=== PATIENT | female | born 1955 | race American Indian/Alaskan Native ===

== ENCOUNTER → 2018-02-15 | Outpatient (CLI) | payer BC ==
[~2018-02-15] MED LIST: ACET500 PO; ASCO500; ASPI325; ASPI325EC PO; ATOR20 PO; BACL10 PO; BISA10S PR; BUPR150ER; BUTASPCAFT; BUTASPCAFT PO; CAL MAG; CALMAGZIN PO; CARV25; CARV25 PO; CHOL10002 PO; CINNAMON PLUS1 EACH PO; CLOP75 PO; CODBUTACEC PO; CYCL10 PO; DIGO.125 PO; DIGO.25 PO; DOCU100 PO; DOXY100 PO; FLEET ENEMA EX230 ML PR; GABA100 PO; GABA300 PO; GLIM4; HYDACE5325 PO; HYDR1TAB94 PO; Hydrochlorothia25 MG PO; IBUP800; INSLI100I; INSUASPI; INSULANI; INSULANPEN; INSULANPEN SC; Janumet 50-1,01 EACH PO; LISI20 PO; LORA.5 PO; LOSA50 PO; METF500 PO; METF500C; METHYLFOLATE PO; MULTI VIT QD; Milk Of Ma400 MG/5 M PO; NAPR550 PO; NITR.4SL; PENT400ER; PIOG15; POLY500 PO; POTCHL20ER PO; Pentoxifylline400 MG PO; SERT100 PO; SERT50 PO; SITA50T2 PO; TEMA30; TIAZAC; TOCO1000; VERA240ER PO; VYTORIN; WOMEN'S 50+ DA1 EACH PO; Zofran8 MG PO; [UNRECOGNIZED DRUG - OTHER]
[2018-02-15 13:34] LABS: BASOPHILS ABSOLUTE AUTO 0.05 K/mm3 (0.00-0.23); BASOPHILS PERCENT AUTO 1 % (0-2); EOSINOPHILS ABSOLUTE AUTO 0.15 K/mm3 (0.00-0.68); EOSINOPHILS PERCENT AUTO 2 % (0-6); Hematocrit 38.5 % (33.0-51.0); Hemoglobin 13.2 g/dL (11.5-16.0); IMMATURE GRAN ABSOLUTE AUTO 0.04 K/mm3 (0.00-0.10); IMMATURE GRAN PERCENT AUTO 0 % (0-1); LYMPHOCYTES ABSOLUTE AUTO 1.81 K/mm3 (0.84-5.20); LYMPHOCYTES PERCENT AUTO 18 % (21-46); MONOCYTES ABSOLUTE AUTO 0.89 K/mm3 (0.16-1.47); MONOCYTES PERCENT AUTO 9 % (4-13); Mean Corpuscular HGB 29.3 pg (26.0-34.0); Mean Corpuscular HGB Conc 34.3 g/dL (31.5-36.5); Mean Corpuscular Volume 85 fL (80-100); Mean Platelet Volume 9.9 fL (9.1-12.4); NEUTROPHILS ABSOLUTE AUTO 6.92 K/mm3 (1.96-9.15); NEUTROPHILS PERCENT AUTO 70 % (41-73); Platelet Count 203 K/mm3 (150-400); RDW Coefficient Variation 12.5 % (11.7-14.2); RDW Standard Deviation 38.2 fL (35.1-46.3); Red Blood Cell Count 4.51 M/mm3 (3.80-5.20); White Blood Cell Count 9.86 K/mm3 (4.00-11.30)
[2018-02-15 13:56] LABS: Alanine Aminotransfer (ALT/SGP 22 U/L (12-78); Albumin, Blood 3.7 g/dL (3.4-5.0); Albumin/Globulin Ratio 0.9 (0.8-1.8); Alk Phos 60 U/L (40-126); Anion Gap 10 mmol/L (6-16); Aspartate Aminotrans (AST/SGOT 17 U/L (12-37); Bilirubin, Total 0.4 mg/dL (0.1-1.0); Blood Urea Nitrogen 17 mg/dL (8-24); Bun/Creatinine Ratio 20.7 (12.0-20.0); CO2, Blood 27 mmol/L (21-32); Calcium, Blood 9.7 mg/dL (8.5-10.1); Chloride, Blood 97 mmol/L (98-108); Creatinine, Blood 0.82 mg/dL (0.40-1.00); Globulin, Blood 3.9 g/dL (2.2-4.0); Glomerular Filtration Rate >60 (60-); Glucose, Blood 85 mg/dL (70-99); Potassium, Blood 4.4 mmol/L (3.5-5.5); Sodium, Blood 134 mmol/L (136-145); Thyroid Stimulating Hormone 0.463 uIU/mL (0.360-4.800); Total Protein, Blood 7.6 g/dL (6.4-8.2)
[2018-02-15 14:19] LABS: Digoxin (Lanoxin) 1.07 ug/mL (0.80-2.00)
== END ==
LOC: LAB SHORT 13:30
PROVIDERS: Physician Assistant Medical
DX: R47.02 Dysphasia (principal)
CPT/HCPCS: 80053; 80162; 84443; 85025

== ENCOUNTER 2018-04-05 15:31 | Emergency (ER) | payer BC ==
[~2018-04-05] VITALS: Ht 162.6 cm; Wt 59.0 kg
[2018-04-05 16:24] LABS: BASOPHILS ABSOLUTE AUTO 0.05 K/mm3 (0.00-0.23); BASOPHILS PERCENT AUTO 1 % (0-2); EOSINOPHILS PERCENT AUTO 1 % (0-6); Hematocrit 38.9 % (33.0-51.0); Hemoglobin 13.5 g/dL (11.5-16.0); IMMATURE GRAN ABSOLUTE AUTO 0.01 K/mm3 (0.00-0.10); IMMATURE GRAN PERCENT AUTO 0 % (0-1); LYMPHOCYTES ABSOLUTE AUTO 1.37 K/mm3 (0.84-5.20); LYMPHOCYTES PERCENT AUTO 18 % (21-46); MONOCYTES ABSOLUTE AUTO 0.66 K/mm3 (0.16-1.47); MONOCYTES PERCENT AUTO 9 % (4-13); Mean Corpuscular HGB 29.7 pg (26.0-34.0); Mean Corpuscular HGB Conc 34.7 g/dL (31.5-36.5); Mean Corpuscular Volume 86 fL (80-100); Mean Platelet Volume 9.6 fL (9.1-12.4); NEUTROPHILS ABSOLUTE AUTO 5.44 K/mm3 (1.96-9.15); NEUTROPHILS PERCENT AUTO 71 % (41-73); Platelet Count 214 K/mm3 (150-400); RDW Coefficient Variation 12.3 % (11.7-14.2); RDW Standard Deviation 38.2 fL (35.1-46.3); Red Blood Cell Count 4.55 M/mm3 (3.80-5.20); White Blood Cell Count 7.63 K/mm3 (4.00-11.30)
[2018-04-05 16:52] LABS: Alanine Aminotransfer (ALT/SGP 28 U/L (12-78); Albumin, Blood 3.6 g/dL (3.4-5.0); Alk Phos 61 U/L (50-136); Anion Gap 11 mmol/L (6-16); Aspartate Aminotrans (AST/SGOT 24 U/L (12-37); Bilirubin, Total 0.5 mg/dL (0.1-1.0); Blood Urea Nitrogen 17 mg/dL (8-24); Bun/Creatinine Ratio 22.4 (12.0-20.0); CO2, Blood 24 mmol/L (21-32); Calcium, Blood 9.5 mg/dL (8.5-10.1); Chloride, Blood 96 mmol/L (98-108); Creatinine, Blood 0.76 mg/dL (0.40-1.00); Globulin, Blood 3.6 g/dL (2.2-4.0); Glomerular Filtration Rate >60 (60-); Glucose, Blood 185 mg/dL (70-99); Potassium, Blood 4.3 mmol/L (3.5-5.5); Sodium, Blood 131 mmol/L (136-145); Total Protein, Blood 7.2 g/dL (6.4-8.2)
[2018-04-05 17:11] LABS: Source, Urine Clean Catch
[2018-04-05 17:18] LABS: Bilirubin, Urine Neg (Neg); Blood, Urine Neg (Neg); Glucose Qualitative, Urine Neg (Neg); Ketones, Urine Neg (Neg); Leukocyte Esterase, Urine Neg (Neg); Nitrite, Urine Neg (Neg); Protein, Urine Neg (Neg); Urobilinogen, Urine NORM (Normal)
[2018-04-05 17:26] LABS: Appearance, Urine Clear (Clear); Color, Urine Yellow (P-Yellow)
[2018-04-05 17:33] LABS: U Amphetamine Screen Not Detected; U Barbituate Screen Not Detected; U Benzodiazapine Screen Not Detected; U Buprenorphine Screen Not Detected; U Cannabinoids Screen Not Detected; U Cocaine Screen Not Detected; U Methadone Screen Not Detected; U Methamphetamine Screen Not Detected; U Opiates Screen Not Detected; U Oxycodone Screen Not Detected; U Phencyclidine Screen Not Detected; U Propoxyphene Screen Not Detected
== END 2018-04-05 18:25 | disposition home or self-care (01) ==
LOC: ER 15:31
PROVIDERS: Emergency Medicine; Internal Medicine
DX: R41.0 Disorientation, unspecified (principal); R47.9 Unspecified speech disturbances; Z88.0 Allergy status to penicillin; Z88.8 Allergy status to other drugs, medicaments and biological substances; Z79.899 Other long term (current) drug therapy; Z79.82 Long term (current) use of aspirin; Z79.4 Long term (current) use of insulin; E11.9 Type 2 diabetes mellitus without complications; I10 Essential (primary) hypertension; I25.2 Old myocardial infarction
CPT/HCPCS: 36415; 51701; 70450; 80053; 81003; 82947; 85025; 93005; 93010; 96374; 99284-25; J2060

== ENCOUNTER 2018-10-13 12:39 | Emergency (ER) | payer BC ==
[~2018-10-13] VITALS: Ht 172.7 cm; Wt 59.0 kg
[~2018-10-13 12:39] MED LIST changes: +BUPR100 PO; +FLONASE SENSIM5.9 ML; +HYDCHL25 PO; +LANOXIN250 MC1 PO; +Prozac40 MG PO
[2018-10-13 14:14] LABS: BASOPHILS ABSOLUTE AUTO 0.05 K/mm3 (0.00-0.23); BASOPHILS PERCENT AUTO 1 % (0-2); EOSINOPHILS ABSOLUTE AUTO 0.16 K/mm3 (0.00-0.68); EOSINOPHILS PERCENT AUTO 2 % (0-6); Hematocrit 40.3 % (33.0-51.0); IMMATURE GRAN ABSOLUTE AUTO 0.04 K/mm3 (0.00-0.10); IMMATURE GRAN PERCENT AUTO 1 % (0-1); LYMPHOCYTES ABSOLUTE AUTO 1.38 K/mm3 (0.84-5.20); LYMPHOCYTES PERCENT AUTO 16 % (21-46); MONOCYTES ABSOLUTE AUTO 0.72 K/mm3 (0.16-1.47); MONOCYTES PERCENT AUTO 9 % (4-13); Mean Corpuscular HGB 28.6 pg (26.0-34.0); Mean Corpuscular HGB Conc 32.3 g/dL (31.5-36.5); Mean Corpuscular Volume 89 fL (80-100); Mean Platelet Volume 10.4 fL (9.1-12.4); NEUTROPHILS ABSOLUTE AUTO 6.12 K/mm3 (1.96-9.15); NEUTROPHILS PERCENT AUTO 72 % (41-73); Platelet Count 209 K/mm3 (150-400); RDW Coefficient Variation 12.8 % (11.7-14.2); RDW Standard Deviation 41.8 fL (35.1-46.3); Red Blood Cell Count 4.55 M/mm3 (3.80-5.20); White Blood Cell Count 8.47 K/mm3 (4.00-11.30)
[2018-10-13 14:26] LABS: International Normalized Ratio 0.97
[2018-10-13 14:28] LABS: Alanine Aminotransfer (ALT/SGP 23 U/L (12-78); Albumin, Blood 3.6 g/dL (3.4-5.0); Albumin/Globulin Ratio 0.9 (0.8-1.8); Alk Phos 70 U/L (50-136); Anion Gap 7 mmol/L (6-16); Aspartate Aminotrans (AST/SGOT 20 U/L (12-37); Bilirubin, Total 0.5 mg/dL (0.1-1.0); Blood Urea Nitrogen 21 mg/dL (8-24); Bun/Creatinine Ratio 27.7 (12.0-20.0); CO2, Blood 28 mmol/L (21-32); Calcium, Blood 9.5 mg/dL (8.5-10.1); Chloride, Blood 99 mmol/L (98-108); Creatinine, Blood 0.76 mg/dL (0.40-1.00); Ethanol (Alcohol), Blood, Med <3 mg/dL; Globulin, Blood 3.9 g/dL (2.2-4.0); Glomerular Filtration Rate >60 (60-); Glucose, Blood 97 mg/dL (70-99); Potassium, Blood 4.8 mmol/L (3.5-5.5); Sodium, Blood 134 mmol/L (136-145); Total Protein, Blood 7.5 g/dL (6.4-8.2)
[2018-10-13 14:54] LABS: U Amphetamine Screen Not Detected; U Barbituate Screen Not Detected; U Benzodiazapine Screen Not Detected; U Buprenorphine Screen Not Detected; U Cannabinoids Screen Not Detected; U Cocaine Screen Not Detected; U Methadone Screen Not Detected; U Methamphetamine Screen Not Detected; U Opiates Screen Not Detected; U Oxycodone Screen Not Detected; U Phencyclidine Screen Not Detected; U Propoxyphene Screen Not Detected
[2018-10-13] MEDS ORDERED: Norco 5-325 Ta1 EACH PO (16:37)
[2018-10-28] MEDS ORDERED: NAC500 MG PO (14:23)
[2018-10-28] MEDS ORDERED: [UNRECOGNIZED DRUG - OTHER] PO (14:24)
[2018-10-28] MEDS ORDERED: Fiber Tabs625 MG PO (14:24)
[2018-10-28] MEDS ORDERED: FOLI1 PO (14:25)
[2018-10-28] MEDS ORDERED: FIBRIK CAPSULE1 EACH PO (14:26)
[2018-10-28] MEDS ORDERED: VIT1CAPS12 PO (14:26)
[2018-10-28] MEDS ORDERED: MELA3 PO (14:27)
[2018-10-28] MEDS ORDERED: [UNRECOGNIZED DRUG - REMARK] PO (14:28)
== END 2018-10-13 16:50 | disposition home or self-care (01) ==
LOC: ER 12:39
PROVIDERS: Physician Assistant
DX: S06.9X9A Unspecified intracranial injury with loss of consciousness of unspecified duration, initial encounter (principal); S01.81XA Laceration without foreign body of other part of head, initial encounter; Z88.0 Allergy status to penicillin; Z79.4 Long term (current) use of insulin; E11.9 Type 2 diabetes mellitus without complications; I10 Essential (primary) hypertension; I25.2 Old myocardial infarction; Z87.891 Personal history of nicotine dependence; X58.XXXA Exposure to other specified factors, initial encounter
CPT/HCPCS: 12011; 70450; 72125; 73564; 80053; 82947; 84484; 85025; 85610; 90714; 93005; 93010; 96374; 99285-25; G0480; J3010

== ENCOUNTER 2018-10-31 11:12 | Day surgery (SDC) | payer BC ==
[~2018-10-31] VITALS: Ht 162.6 cm; Wt 55.5 kg
[~2018-10-31 11:12] MED LIST changes: +FIBRIK CAPSULE1 EACH PO; +FOLI1 PO; +Fiber Tabs625 MG PO; +MELA3 PO; +NAC500 MG PO; +Norco 5-325 Ta1 EACH PO; +VIT1CAPS12 PO; +[UNRECOGNIZED DRUG - OTHER] PO; +[UNRECOGNIZED DRUG - REMARK] PO
--- NOTE | 2018-10-31 13:29 | NUR ---
DISCHARGE INSTRUCTIONS GIVEN BY DR MONTENEGRO, RN, AND RICHARD, PLASTIC STRAIGHTENING ROLL OPERATOR FOR [employer]. PATIENT AND FAMILY VERBALIZED UNDERSTANDING.
== END 2018-10-31 23:00 | disposition home or self-care (01) ==
LOC: MHTC 11:12
DX: I63.9 Cerebral infarction, unspecified (principal); G45.9 Transient cerebral ischemic attack, unspecified; R55 Syncope and collapse; I10 Essential (primary) hypertension; I25.2 Old myocardial infarction; E11.9 Type 2 diabetes mellitus without complications; Z79.4 Long term (current) use of insulin; Z79.82 Long term (current) use of aspirin
CPT/HCPCS: 82947; 93312; 93325; J2250; J7120

== ENCOUNTER 2019-03-16 12:34 | Observation (INO) | payer MEDICARE ==
[~2019-03-16] VITALS: Ht 162.6 cm; Wt 58.1 kg
[~2019-03-16 12:34] MED LIST changes: -ASPI325EC PO; -ATOR20 PO; -BUPR100 PO; -FLONASE SENSIM5.9 ML; -HYDCHL25 PO; -INSULANPEN SC; -LOSA50 PO; -NAC500 MG PO; -POTCHL20ER PO; -Prozac40 MG PO
[2019-03-16 13:07] LABS: BASOPHILS ABSOLUTE AUTO 0.06 K/mm3 (0.00-0.23); BASOPHILS PERCENT AUTO 1 % (0-2); EOSINOPHILS ABSOLUTE AUTO 0.16 K/mm3 (0.00-0.68); EOSINOPHILS PERCENT AUTO 2 % (0-6); Hematocrit 38.6 % (33.0-51.0); Hemoglobin 12.8 g/dL (11.5-16.0); IMMATURE GRAN ABSOLUTE AUTO 0.05 K/mm3 (0.00-0.10); IMMATURE GRAN PERCENT AUTO 1 % (0-1); LYMPHOCYTES ABSOLUTE AUTO 1.89 K/mm3 (0.84-5.20); LYMPHOCYTES PERCENT AUTO 21 % (21-46); MONOCYTES ABSOLUTE AUTO 0.87 K/mm3 (0.16-1.47); MONOCYTES PERCENT AUTO 10 % (4-13); Mean Corpuscular HGB 28.6 pg (26.0-34.0); Mean Corpuscular HGB Conc 33.2 g/dL (31.5-36.5); Mean Corpuscular Volume 86 fL (80-100); Mean Platelet Volume 10.2 fL (9.1-12.4); NEUTROPHILS ABSOLUTE AUTO 6.07 K/mm3 (1.96-9.15); NEUTROPHILS PERCENT AUTO 67 % (41-73); Platelet Count 262 K/mm3 (150-400); RDW Coefficient Variation 13.2 % (11.7-14.2); RDW Standard Deviation 41.2 fL (35.1-46.3); Red Blood Cell Count 4.47 M/mm3 (3.80-5.20)
[2019-03-16 13:17] LABS: International Normalized Ratio 0.96; Prothrombin Time Results 10.2 Sec (9.7-11.5)
[2019-03-16 13:29] LABS: Troponin I <0.015 ng/mL (0.000-0.040)
[2019-03-16 13:36] LABS: Alanine Aminotransfer (ALT/SGP 23 U/L (12-78); Albumin, Blood 3.6 g/dL (3.4-5.0); Albumin/Globulin Ratio 0.9 (0.8-1.8); Alk Phos 74 U/L (50-136); Anion Gap 10 mmol/L (6-16); Aspartate Aminotrans (AST/SGOT 34 U/L (12-37); Bilirubin, Total 0.6 mg/dL (0.1-1.0); Blood Urea Nitrogen 24 mg/dL (8-24); Bun/Creatinine Ratio 32.3 (12.0-20.0); CO2, Blood 22 mmol/L (21-32); Calcium, Blood 9.2 mg/dL (8.5-10.1); Chloride, Blood 93 mmol/L (98-108); Creatinine, Blood 0.74 mg/dL (0.40-1.00); Globulin, Blood 3.8 g/dL (2.2-4.0); Glomerular Filtration Rate >60 (60-); Glucose, Blood 182 mg/dL (70-99); Potassium, Blood 5.4 mmol/L (3.5-5.5); Sodium, Blood 125 mmol/L (136-145); Total Protein, Blood 7.4 g/dL (6.4-8.2)
[2019-03-16] MEDS ORDERED: METO25ER PO (15:04)
[2019-03-16] MEDS ORDERED: LOSARTAN POTAS100 MG PO (15:04)
[2019-03-16] MEDS ORDERED: ATOR10 PO (16:37)
[2019-03-16] MEDS ORDERED: LO-DOSE ASPIRIN81 MG PO (16:49)
[2019-03-16] MEDS ORDERED: Prozac40 MG PO (16:49)
[2019-03-16] MEDS ORDERED: CLOP75 PO (16:49)
[2019-03-16] MEDS ORDERED: POTCHL20ER PO (16:50)
[2019-03-16] MEDS ORDERED: HYDCHL25 PO (16:50)
[2019-03-16] MEDS ORDERED: BUPR100ER PO (16:51)
[2019-03-16] MEDS ORDERED: INSULANPEN SC (17:06)
[2019-03-16] MEDS ORDERED: FLONASE SENSIM5.9 ML (17:08)
[2019-03-16] MEDS ORDERED: Janumet 50-1,01 EACH PO (17:08)
[2019-03-16] MEDS ORDERED: NAC500 MG PO (17:10)
--- NOTE | 2019-03-16 18:13 | NUR ---
ALERT, CONFUSED, SLOW VERBAL RESPONSE. WHEN ANSWERING QUESTIONS, PT STARTS TO ANSWER APPROPRIATELY AND THEN LOSES TRACK OF WHAT SHE WAS SAYING AND RESPONDS INAPPROPRIATELY, RESPONSES DO NOT ALWAYS FIT THE QUESTION ASKED. PT STATES HER RIGHT HAND DOES NOT HAVE FINE MOTOR MOVEMENTS AND HAS HAD THIS FOR SEVERAL YEARS. C/O WEAKNESS AND THAT HER BRAIN JUST ISN'T WORKING RIGHT. VSS. LUNGS CLEAR, ROOM AIR, SATS 99%. INSTRUCTED TO CALL FOR ASSISTANCE OUT OF BED AND TO THE BATHROOM AT ALL TIMES. PT STATES HER PLANS TO COME BACK TO THE HOSPITAL THIS EVENING WITH HER MEDICATION LIST. PT UNABLE TO REMEMBER THE MEDICATIONS AND DOSES SHE IS TAKING. INSTRUCTED RE: NPO STATUS UNTIL [facility] PROVIDES ADMISSION ORDERS. BOWEL SOUNDS NORMOACTIVE IN ALL FOUR QUADRANTS. HAD A BM TODAY. LEFT WRIST IV SITE.
[2019-03-16 19:22] LABS: Anion Gap 4 mmol/L (6-16); Blood Urea Nitrogen 16 mg/dL (8-24); Bun/Creatinine Ratio 24.1 (12.0-20.0); CO2, Blood 30 mmol/L (21-32); Calcium, Blood 9.1 mg/dL (8.5-10.1); Chloride, Blood 97 mmol/L (98-108); Creatinine, Blood 0.66 mg/dL (0.40-1.00); Glomerular Filtration Rate >60 (60-); Glucose, Blood 129 mg/dL (70-99); Sodium, Blood 131 mmol/L (136-145)
[2019-03-16 20:55] LABS: Thyroid Stimulating Hormone 0.336 uIU/mL (0.360-4.800)
[2019-03-17 05:58] LABS: Anion Gap 7 mmol/L (6-16); Blood Urea Nitrogen 21 mg/dL (8-24); Bun/Creatinine Ratio 32.8 (12.0-20.0); CO2, Blood 29 mmol/L (21-32); Calcium, Blood 8.9 mg/dL (8.5-10.1); Chloride, Blood 97 mmol/L (98-108); Creatinine, Blood 0.64 mg/dL (0.40-1.00); Glomerular Filtration Rate >60 (60-); Glucose, Blood 157 mg/dL (70-99); Potassium, Blood 4.1 mmol/L (3.5-5.5); Sodium, Blood 133 mmol/L (136-145)
--- NOTE | 2019-03-17 06:28 | NUR ---
SHIFT SUMMARY PATIENT IS ALERT AND CONFUSED. VERY FORGETFUL BUT KNOWS WHO SHE IS, AND FAMILY. ALSO KNOWS WHAT STATE, CITY SHE IS IN. DOES NOT REMEMBER WHY SHE IS HERE. PATIENT HAS SLIGHTLY WEAKER ROOF ASSEMBLER TO RIGHT HAND. AMBULATES IN THE ROOM WELL, GAIT STEADY-SBA. PATIENT SLEPT WELL THROUGHOUT THE NIGHT. DID USE CALL LIGHT A COUPLE OF TIMES APPROPRIATELY. VITALS STABLE. NO OTHER CHANGES NOTED.
--- NOTE | 2019-03-17 12:52 | NUR ---
SUMMARY/DISCHARGE PT DISCHARGED TO HOME WITH FAMILY, PT AND FAMILY VERBALIZED UNDERSTANDING OF DISCHARGE INSTRUCTIONS REGARDING MEDICATION CHANGES AND FOLLOW UP, PT DECLINED A WHEELCHAIR AND WAS ABLE TO AMBULATE SAFELY TO THE ELEVATOR WITH HER FAMILY
== END 2019-03-17 12:41 | disposition home or self-care (01) ==
LOC: ER 12:34 → MEDS 12:35
PROVIDERS: Emergency Medicine; ADMIT Internal Medicine Endocrinology, Diabetes & Metabolism
DX: R55 Syncope and collapse (principal); E87.1 Hypo-osmolality and hyponatremia; T50.2X5A Adverse effect of carbonic-anhydrase inhibitors, benzothiadiazides and other diuretics, initial encounter; F01.50 Vascular dementia, unspecified severity, without behavioral disturbance, psychotic disturbance, mood disturbance, and anxiety; I25.5 Ischemic cardiomyopathy; I10 Essential (primary) hypertension; E11.65 Type 2 diabetes mellitus with hyperglycemia; I25.10 Atherosclerotic heart disease of native coronary artery without angina pectoris; Z86.73 Personal history of transient ischemic attack (TIA), and cerebral infarction without residual deficits; Z87.891 Personal history of nicotine dependence; Z88.0 Allergy status to penicillin; Z88.8 Allergy status to other drugs, medicaments and biological substances; Z79.82 Long term (current) use of aspirin; Z79.02 Long term (current) use of antithrombotics/antiplatelets; Z79.899 Other long term (current) drug therapy
CPT/HCPCS: 36415; 70450; 80048; 80053; 82533; 82947; 83930; 84443; 84484; 85025; 85610; 85730; 93005; 93010; 96360; 96361; 96372; 97165; 97535; 99285-25; A9270; G0378; J1650; J1815; J7030

== ENCOUNTER 2019-09-11 10:28 | Day surgery (SDC) | payer MEDICARE ==
[~2019-09-11] VITALS: Ht 162.6 cm; Wt 62.0 kg
[~2019-09-11 10:28] MED LIST changes: +ATOR10 PO; +BUPR100ER PO; +FLONASE SENSIM5.9 ML; +HYDCHL25 PO; +INSULANPEN SC; +LO-DOSE ASPIRIN81 MG PO; +LOSARTAN POTAS100 MG PO; +METO25ER PO; +NAC500 MG PO; +POTCHL20ER PO; +Prozac40 MG PO
[2019-09-11] MEDS ORDERED: NAPR220 PO (11:17)
--- NOTE | 2019-09-11 13:35 | NUR ---
PT AMBULATES TO RESTROOM AND BACK WITHOUT DIFF. VSS. NADN. CALL LIGHT WITHIN REACH. FAMILY REMAINS AT BEDSIDE
--- NOTE | 2019-09-11 14:20 | NUR ---
PT AMBULATES TO RESTROOM AND BACK WITHOUT DIFF. PT AIR FULLY DEFLATED FROM TR BAND. NO BLEEDING NOTED. VSS. NADN. CALL LIGHT WITHIN REACH.
== END 2019-09-11 15:50 | disposition home or self-care (01) ==
LOC: MHTC 10:28
PROC: B201YZZ Plain Radiography of Multiple Coronary Arteries using Other Contrast (ICD-10-PCS; principal; 2019-09-11)
PROC: 4A023N7 Measurement of Cardiac Sampling and Pressure, Left Heart, Percutaneous Approach (ICD-10-PCS; principal; 2019-09-11)
DX: I47.2 Ventricular tachycardia (principal); I44.7 Left bundle-branch block, unspecified; I25.10 Atherosclerotic heart disease of native coronary artery without angina pectoris; I25.2 Old myocardial infarction; E11.319 Type 2 diabetes mellitus with unspecified diabetic retinopathy without macular edema; I10 Essential (primary) hypertension; I25.5 Ischemic cardiomyopathy; E78.5 Hyperlipidemia, unspecified; Z86.73 Personal history of transient ischemic attack (TIA), and cerebral infarction without residual deficits; I49.3 Ventricular premature depolarization; Z87.891 Personal history of nicotine dependence; Z88.1 Allergy status to other antibiotic agents; Z88.8 Allergy status to other drugs, medicaments and biological substances; Z79.01 Long term (current) use of anticoagulants; Z79.4 Long term (current) use of insulin; Z79.899 Other long term (current) drug therapy; Z95.818 Presence of other cardiac implants and grafts
CPT/HCPCS: 93005; 93010; 93458; 99152; 99153; C1769; C1894; J1644; J2250; J3010; J7030; Q9967

== ENCOUNTER 2019-10-26 06:54 | Day surgery (SDC) | payer MEDICARE ==
[~2019-10-26] VITALS: Ht 162.6 cm; Wt 63.6 kg
[~2019-10-26 06:54] MED LIST changes: +NAPR220 PO
[2019-10-26 07:43] LABS: BASOPHILS ABSOLUTE AUTO 0.04 K/mm3 (0.00-0.23); BASOPHILS PERCENT AUTO 1 % (0-2); EOSINOPHILS ABSOLUTE AUTO 0.17 K/mm3 (0.00-0.68); EOSINOPHILS PERCENT AUTO 2 % (0-6); Hematocrit 34.9 % (33.0-51.0); Hemoglobin 11.4 g/dL (11.5-16.0); IMMATURE GRAN ABSOLUTE AUTO 0.04 K/mm3 (0.00-0.10); IMMATURE GRAN PERCENT AUTO 1 % (0-1); LYMPHOCYTES ABSOLUTE AUTO 1.75 K/mm3 (0.84-5.20); LYMPHOCYTES PERCENT AUTO 21 % (21-46); MONOCYTES ABSOLUTE AUTO 0.88 K/mm3 (0.16-1.47); MONOCYTES PERCENT AUTO 10 % (4-13); Mean Corpuscular HGB 28.7 pg (26.0-34.0); Mean Corpuscular HGB Conc 32.7 g/dL (31.5-36.5); Mean Corpuscular Volume 88 fL (80-100); Mean Platelet Volume 10.2 fL (9.1-12.4); NEUTROPHILS ABSOLUTE AUTO 5.64 K/mm3 (1.96-9.15); NEUTROPHILS PERCENT AUTO 66 % (41-73); Platelet Count 241 K/mm3 (150-400); RDW Coefficient Variation 11.9 % (11.7-14.2); RDW Standard Deviation 38.3 fL (35.1-46.3); Red Blood Cell Count 3.97 M/mm3 (3.80-5.20); White Blood Cell Count 8.52 K/mm3 (4.00-11.30)
[2019-10-26 07:53] LABS: International Normalized Ratio 0.96; Prothrombin Time Results 10.3 Sec (9.7-11.5)
[2019-10-26 07:54] LABS: Anion Gap 3 mmol/L (6-16); Blood Urea Nitrogen 17 mg/dL (8-24); Bun/Creatinine Ratio 22.4 (12.0-20.0); CO2, Blood 30 mmol/L (21-32); Calcium, Blood 9.2 mg/dL (8.5-10.1); Chloride, Blood 102 mmol/L (98-108); Creatinine, Blood 0.76 mg/dL (0.40-1.00); Glomerular Filtration Rate >60 (60-); Glucose, Blood 162 mg/dL (70-99); Potassium, Blood 4.2 mmol/L (3.5-5.5); Sodium, Blood 135 mmol/L (136-145)
--- NOTE | 2019-10-26 10:38 | NUR ---
PT [facility] POST [facility]ED[facility], PACE MAKER AND AICD PLACEMENT. PT ALERT AND ORIENTED. PT DENIES PAIN. 20G TO LEFT AC. FLUSHED WELL AND CAPS PLACED. PT FAMILY WITH PT. BEDSIDE REPORT WITH [facility] STAFF.
--- NOTE | 2019-10-26 10:45 | NUR ---
VSS. ASSISTED PT TO RR. AMB WNL FOR PT. PT ORIENTED TO ROOM AND CALL LIGHT.
--- NOTE | 2019-10-26 11:00 | NUR ---
PT VSS. PT ALERT AND ORIENTED. ASSESSMENT CHARTED. CALL LIGHT IN REACH.
--- NOTE | 2019-10-26 11:15 | NUR ---
SLING PLACED TO LEFT ARM. WATER PROVIDED. PT SCDS PLACED. PT DENIES PAIN. VSS. OFFERED PT A SNACK. DENIED AT THIS TIME.
--- NOTE | 2019-10-26 11:30 | NUR ---
VSS. DR MONTENEGRO TO ROOM FOR EVAL.
--- NOTE | 2019-10-26 12:00 | NUR ---
VSS. LUNCH TRAY PROVIDED. ASSISTED PT TO SITTING, FOOD CUT FOR CONVENIENCE. PT NEEDS CONSTANT REMINDERS TO NOT MOVE LEFT ARM. WILL PLACE IMMOBILIZER AFTER MEAL.
--- NOTE | 2019-10-26 13:50 | NUR ---
ASSISTED PT TO RR. IMMOBILIZER SEEMS TO BE WORKING MUCH BETTER TO LIMIT USE OF LEFT ARM. SCANT DRAINAGE NOTED TO SURGICAL DRESSING. PT DENIES PAIN.
--- NOTE | 2019-10-26 14:53 | NUR ---
SHIFT SUMMARY PT ALERT AND ORIENTED THROUGHOUT SHIFT. PT DENIES PAIN. DENIES SOB. VSS. FAMILY AT BEDSIDE. PT TOLERATING PO. ABLE TO MAKE NEEDS KNOWN. USES CALL LIGHT APPROPRIATELY. PT LEFT ARM IN IMMOBILIZER TO RESTRICT MOVEMENT. WORKING BETTER THAN SLING.
--- NOTE | 2019-10-26 15:06 | NUR ---
Bedside report was received from Dougie Roldan RN. The pt is sitting up in bed, pleasant, conversant, and without any complaints at this time. 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 However, she states that she knows it is only temporary and she states she is managing fine. Her is at the bedside. Left chest wall dressing is dry, intact with tiny spots of betadine-colored dots on the white dressing underneath the clear tegederm. No bruising, no swelling noted. Red petechiae are noted on the left lower neck area, which I am told is due to a reaction to adhesive dressing. Vital signs are stable, and rhythm is sinus at 78 bpm with PVCs per Vivi Riley MT today.
--- NOTE | 2019-10-27 07:46 | NUR ---
a+o, R sided weakness/cva, L arm in brace to limit movement to protect the surgery, call light in reach, rm air, cxray and interrigation completed this am, sbar report given to day staff, frequent trips to the bathroom, no pain or s/sx of infection noted at surgical site, forgetful
--- NOTE | 2019-10-27 08:00 | NUR ---
ASSUMED CARE: REPORT RECEIVED FROM PEMA Chicas RN. ASSUMED CARE OF THIS PT AT APPROX 0700. ON ASSESSMENT, THE PT IS AWAKE, A&O. HER LEFT ARM IS CURRENTLY IN A SLING S/P PACER PLACEMENT. SURGICAL SITE WNL W/ MOD AMNT DRIED SS DRAINAGE ON DRESSING, PT DENIES PAIN AT THIS TIME. PT ON RA W/ O2 SATS > 92%. MONITOR SHOWS SR W/ HR 80s, BP STABLE. PT HAS NO GI/ COMPLAINTS. WILL CONTINUE TO MONITOR & UPDATE NEEDED.
--- NOTE | 2019-10-27 08:10 | NUR ---
DR MONTENEGRO: PROVIDER AT BEDSIDE TO ZOILA PT. DRESSING TO PACER SURGICAL SITE HAS BEEN CHANGED BY PROVIDER & D/C HOME ORDERS PLACED.
--- NOTE | 2019-10-27 10:30 | NUR ---
DISCHARGE TO HOME: PT HAS BEEN D/C'd TO HOME PER DR MONTENEGRO. D/C TEACHING HAS BEEN COMPLETED TO BOTH PT & , THEY VERBALIZE UNDERSTANDING & WILL CALL IF ANY QUESTIONS ARISE. PIV & MONITORS HAVE BEEN REMOVED. L ARM PLACED IN IMMOBILIZER SLING PER DR MONTENEGRO REQUEST. PT TAKEN OUT VIA WC BY DANUTA Barth, JULIET, & ALL BELONGINGS OUT W/ PT.
== END 2019-10-27 10:42 | disposition home or self-care (01) ==
LOC: MHTC 06:54 → PCU 08:20 → MHTC 10-27 10:42
PROVIDERS: Internal Medicine Cardiovascular Disease
PROC: 0JH608Z Insertion of Defibrillator Generator into Chest Subcutaneous Tissue and Fascia, Open Approach (ICD-10-PCS; principal; 2019-10-26)
PROC: 02HK3KZ Insertion of Defibrillator Lead into Right Ventricle, Percutaneous Approach (ICD-10-PCS; principal; 2019-10-26)
DX: I47.2 Ventricular tachycardia (principal); I47.1 Supraventricular tachycardia; R55 Syncope and collapse; I42.9 Cardiomyopathy, unspecified; I25.10 Atherosclerotic heart disease of native coronary artery without angina pectoris; I25.2 Old myocardial infarction; I25.5 Ischemic cardiomyopathy; I10 Essential (primary) hypertension; E78.5 Hyperlipidemia, unspecified; E11.42 Type 2 diabetes mellitus with diabetic polyneuropathy; I69.351 Hemiplegia and hemiparesis following cerebral infarction affecting right dominant side; F41.8 Other specified anxiety disorders; K21.9 Gastro-esophageal reflux disease without esophagitis; Z88.0 Allergy status to penicillin; Z88.1 Allergy status to other antibiotic agents; Z95.5 Presence of coronary angioplasty implant and graft; Z88.8 Allergy status to other drugs, medicaments and biological substances; Z79.02 Long term (current) use of antithrombotics/antiplatelets; Z79.82 Long term (current) use of aspirin; Z79.4 Long term (current) use of insulin; Z79.899 Other long term (current) drug therapy; Z87.891 Personal history of nicotine dependence; Z95.810 Presence of automatic (implantable) cardiac defibrillator; E11.319 Type 2 diabetes mellitus with unspecified diabetic retinopathy without macular edema
CPT/HCPCS: 33249; 71045; 71046; 76937; 80048; 85025; 85610; 99152; 99153; A9270-GY; C1722; C1895; J0690; J1644; J2250; J3010; J3370; J7030; J7040

== ENCOUNTER 2021-01-06 15:44 | Emergency (ER) | payer MEDICARE ==
[~2021-01-06] VITALS: Ht 162.6 cm; Wt 68.0 kg
[2021-01-06 17:10] LABS: BASOPHILS ABSOLUTE AUTO 0.04 K/mm3 (0.00-0.23); BASOPHILS PERCENT AUTO 0 % (0-2); EOSINOPHILS ABSOLUTE AUTO 0.13 K/mm3 (0.00-0.68); EOSINOPHILS PERCENT AUTO 1 % (0-6); Hematocrit 42.1 % (33.0-51.0); Hemoglobin 14.2 g/dL (11.5-16.0); IMMATURE GRAN ABSOLUTE AUTO 0.06 K/mm3 (0.00-0.10); IMMATURE GRAN PERCENT AUTO 1 % (0-1); LYMPHOCYTES ABSOLUTE AUTO 1.16 K/mm3 (0.84-5.20); LYMPHOCYTES PERCENT AUTO 13 % (21-46); MONOCYTES ABSOLUTE AUTO 0.73 K/mm3 (0.16-1.47); MONOCYTES PERCENT AUTO 8 % (4-13); Mean Corpuscular HGB Conc 33.7 g/dL (31.5-36.5); Mean Corpuscular Volume 89 fL (80-100); Mean Platelet Volume 10.8 fL (9.1-12.4); NEUTROPHILS ABSOLUTE AUTO 7.18 K/mm3 (1.96-9.15); NEUTROPHILS PERCENT AUTO 77 % (41-73); Platelet Count 173 K/mm3 (150-400); RDW Coefficient Variation 12.2 % (11.7-14.2); RDW Standard Deviation 39.8 fL (35.1-46.3); Red Blood Cell Count 4.74 M/mm3 (3.80-5.20)
[2021-01-06 17:22] LABS: International Normalized Ratio 0.96; Prothrombin Time Results 10.3 Sec (9.7-11.5)
[2021-01-06 17:26] LABS: Alanine Aminotransfer (ALT/SGP 24 U/L (12-78); Albumin, Blood 3.4 g/dL (3.4-5.0); Albumin/Globulin Ratio 0.8 (0.8-1.8); Alk Phos 66 U/L (50-136); Anion Gap 5 mmol/L (6-16); Aspartate Aminotrans (AST/SGOT 14 U/L (12-37); Bilirubin, Total 0.2 mg/dL (0.1-1.0); Blood Urea Nitrogen 18 mg/dL (8-24); Bun/Creatinine Ratio 26.8 (12.0-20.0); CO2, Blood 27 mmol/L (21-32); Calcium, Blood 9.2 mg/dL (8.5-10.1); Chloride, Blood 106 mmol/L (98-108); Creatinine, Blood 0.67 mg/dL (0.40-1.00); Globulin, Blood 4.1 g/dL (2.2-4.0); Glomerular Filtration Rate >60 (60-); Glucose, Blood 218 mg/dL (70-99); Potassium, Blood 4.5 mmol/L (3.5-5.5); Sodium, Blood 138 mmol/L (136-145); Total Protein, Blood 7.5 g/dL (6.4-8.2); Troponin I <0.015 ng/mL (0.000-0.040)
== END 2021-01-06 19:54 | disposition home or self-care (01) ==
LOC: ER 15:44
PROVIDERS: Physician Assistant
DX: R55 Syncope and collapse (principal); S01.01XA Laceration without foreign body of scalp, initial encounter; S61.214A Laceration without foreign body of right ring finger without damage to nail, initial encounter; E11.9 Type 2 diabetes mellitus without complications; I25.10 Atherosclerotic heart disease of native coronary artery without angina pectoris; I25.2 Old myocardial infarction; Z88.0 Allergy status to penicillin; Z88.8 Allergy status to other drugs, medicaments and biological substances; Z88.1 Allergy status to other antibiotic agents; Z79.02 Long term (current) use of antithrombotics/antiplatelets; Z79.899 Other long term (current) drug therapy; Z79.4 Long term (current) use of insulin; Z87.891 Personal history of nicotine dependence; W18.30XA Fall on same level, unspecified, initial encounter
CPT/HCPCS: 12002; 36415; 70450; 71045; 80053; 84484; 85025; 85610; 85730; 93005; 93010; 99285-25

== ENCOUNTER 2023-07-24 12:34 | Inpatient (IN) | payer MEDICARE, OTHER ==
[~2023-07-24] VITALS: Ht 160 cm; Wt 50.8 kg
[2023-07-24 13:38] LABS: Base Excess Venous -5.9 mmol/L; PCO2 Venous 45.5 mmHg (38-42); pH Blood Venous 7.27 (7.34-7.37)
[2023-07-24 13:39] LABS: BASOPHILS ABSOLUTE AUTO 0.06 K/mm3 (0.00-0.23); BASOPHILS PERCENT AUTO 1 % (0-2); EOSINOPHILS ABSOLUTE AUTO 0.03 K/mm3 (0.00-0.68); EOSINOPHILS PERCENT AUTO 0 % (0-6); Hematocrit 48.4 % (33.0-51.0); IMMATURE GRAN ABSOLUTE AUTO 0.05 K/mm3 (0.00-0.10); IMMATURE GRAN PERCENT AUTO 0 % (0-1); LYMPHOCYTES ABSOLUTE AUTO 1.48 K/mm3 (0.84-5.20); LYMPHOCYTES PERCENT AUTO 12 % (21-46); MONOCYTES PERCENT AUTO 6 % (4-13); Mean Corpuscular HGB 28.5 pg (26.0-34.0); Mean Corpuscular HGB Conc 33.1 g/dL (31.5-36.5); Mean Corpuscular Volume 86 fL (80-100); Mean Platelet Volume 11.4 fL (9.1-12.4); NEUTROPHILS ABSOLUTE AUTO 10.02 K/mm3 (1.96-9.15); NEUTROPHILS PERCENT AUTO 81 % (41-73); Platelet Count 210 K/mm3 (150-400); RDW Coefficient Variation 11.9 % (11.7-14.2); RDW Standard Deviation 37.6 fL (35.1-46.3); Red Blood Cell Count 5.62 M/mm3 (3.80-5.20); White Blood Cell Count 12.44 K/mm3 (4.00-11.30)
[2023-07-24 13:43] LABS: Source, Urine Straight Cath
[2023-07-24 13:49] LABS: Appearance, Urine Hazy (Clear); Bilirubin, Urine Neg (Neg); Blood, Urine 1+ (Neg); Glucose Qualitative, Urine 4+ (Neg); Ketones, Urine 1+ (Neg); Leukocyte Esterase, Urine 1+ (Neg); Nitrite, Urine Pos (Neg); Protein, Urine 2+ (Neg); Specific Gravity, Urine 1.015 (1.003-1.022); Urobilinogen, Urine NORM (Normal)
[2023-07-24 13:55] LABS: Albumin/Globulin Ratio 0.9 (0.8-1.8); Bilirubin, Total 0.5 mg/dL (0.1-1.0); Calcium, Blood 9.4 mg/dL (8.5-10.1); Creatinine, Blood 0.73 mg/dL (0.40-1.00); Globulin, Blood 4.6 g/dL (2.2-4.0); Magnesium, Blood 1.9 mg/dL (1.6-2.4); Potassium, Blood 3.6 mmol/L (3.5-5.5); Prolactin 6.5 ng/mL (2.74-19.64); Total Protein, Blood 8.6 g/dL (6.4-8.2)
[2023-07-24 14:07] LABS: Color, Urine Pale Yellow (P-Yellow)
[2023-07-24 14:09] LABS: Bacteria Many /hpf; Red Blood Cells, Urine 0-2 /hpf (0-2); Renal Epithelial Rare /hpf (0-Rare)
[2023-07-24 14:10] LABS: Amorphous Light (0-Heavy); Squamous Epithelial Cells Rare /hpf (Few); White Blood Cells, Urine 25-50 /hpf (0-5)
[2023-07-24 14:33] LABS: Influenza A, PCR NEGATIVE (NEGATIVE); Influenza B, PCR NEGATIVE (NEGATIVE); Resp Syncytial Virus, PCR NEGATIVE (NEGATIVE); SARS-Cov-2 (COVID-19) PCR, MMC NEGATIVE (NEGATIVE)
[2023-07-24] MEDS ORDERED: ASPI81CH PO (16:55)
[2023-07-24 16:58] VITALS: BP 167/130
[2023-07-24] MEDS ORDERED: TOPI50 PO (16:58)
[2023-07-24 20:00] VITALS: BP 135/87
[2023-07-25] VITALS: BP 147/96
[2023-07-25 04:30] VITALS: BP 152/86
[2023-07-25 05:16] LABS: BASOPHILS ABSOLUTE AUTO 0.06 K/mm3 (0.00-0.23); BASOPHILS PERCENT AUTO 1 % (0-2); EOSINOPHILS ABSOLUTE AUTO 0.04 K/mm3 (0.00-0.68); EOSINOPHILS PERCENT AUTO 0 % (0-6); Hematocrit 44.4 % (33.0-51.0); Hemoglobin 14.9 g/dL (11.5-16.0); IMMATURE GRAN ABSOLUTE AUTO 0.03 K/mm3 (0.00-0.10); IMMATURE GRAN PERCENT AUTO 0 % (0-1); LYMPHOCYTES ABSOLUTE AUTO 1.22 K/mm3 (0.84-5.20); LYMPHOCYTES PERCENT AUTO 10 % (21-46); MONOCYTES ABSOLUTE AUTO 0.89 K/mm3 (0.16-1.47); MONOCYTES PERCENT AUTO 8 % (4-13); Mean Corpuscular HGB 28.5 pg (26.0-34.0); Mean Corpuscular HGB Conc 33.6 g/dL (31.5-36.5); Mean Corpuscular Volume 85 fL (80-100); NEUTROPHILS PERCENT AUTO 81 % (41-73); Platelet Count 185 K/mm3 (150-400); RDW Standard Deviation 37.1 fL (35.1-46.3); Red Blood Cell Count 5.22 M/mm3 (3.80-5.20); White Blood Cell Count 11.84 K/mm3 (4.00-11.30)
[2023-07-25 05:42] LABS: Albumin, Blood 3.5 g/dL (3.4-5.0); Albumin/Globulin Ratio 0.8 (0.8-1.8); Bilirubin, Total 0.5 mg/dL (0.1-1.0); Bun/Creatinine Ratio 18.9 (12.0-20.0); Calcium, Blood 9.7 mg/dL (8.5-10.1); Creatinine, Blood 0.85 mg/dL (0.40-1.00); Globulin, Blood 4.2 g/dL (2.2-4.0); Magnesium, Blood 1.9 mg/dL (1.6-2.4); Phosphorus, Blood 2.8 mg/dL (2.5-4.9); Potassium, Blood 4.1 mmol/L (3.5-5.5); Total Protein, Blood 7.7 g/dL (6.4-8.2)
--- NOTE | 2023-07-25 06:46 | NUR ---
SHIFT SUMMARY PT MENTATION REMAINS THE SAME, PT NOT OPENING EYES MUCH; IF SHE DOES, PT IS NOT TRACKING OR ABLE TO FOLLOW COMMANDS. VSS THROUGHOUT THE SHIFT. PT AFEBRILE. NO ACUTE CHANGES OVERNIGHT. ABX PER EMAR. PT INCONTINENT AT THIS TIME, ATTENDS IN PLACE. CHECKED Q2 AND CHANGED PRN. PT HAD 3 INCONTINENT VOIDS AND ONE SMALL, SOFT UNFORMED BM. PT RESTED MOST OF THE SHIFT, OCCASSIONALLY RESTLESS BUT ABLE TO BECOME COMFORTABLE WITH REPOSITIONING. DAUGHTER AT BEDSIDE MOST OF THE NIGHT. CALL LIGHT IN REACH. WILL UPDATE ONCOMING RN
[2023-07-25 08:05] VITALS: BP 148/88
[2023-07-25 12:15] VITALS: BP 136/86
[2023-07-25 15:13] VITALS: BP 150/83
--- NOTE | 2023-07-25 17:34 | NUR ---
SHIFT SUMMARY: AMS CONTINUES, PT WILL OPEN EYES SPONTANEOUSLY BUT DOES NOT TRACK MOVEMENT IN ROOM OR MAKE EYE CONTACT. PT's SPEECH IS MUMBLED/NONSENSICAL AT TIMES THEN SHE WILL OCCASIONALLY MAKE A CLEAR STATEMENT. O2 SATS >95% ON RA. ST W/FREQUENT PVCs W/RATE 100-120, BP STABLE. MILD WEAKNESS NOTED TO RUE, BUT PT HAS BEEN MAEW. 2 BMs THIS SHIFT, MINIMAL U.O., ATTENDS IN PLACE AND CHANGED NEEDED. ORAL CARE AND REPOSITIONING PERFORMED PER PROTOCOL. PT DOES BECOMES A LITTLE RESTLESS WITH EXTENDED CARE, BUT WILL SETTLE QUICKLY. AT THIS TIME, PT IS RESTING QUIETLY IN ROOM W/FAMILY AT BEDSIDE AND CALL LIGHT IN REACH. ALL ASSESSEMENTS FOR IGNITABLE SOURCES HAVE BEEN NEGATIVE. WILL CONTINUE TO MONITOR AND TREAT ACCORDINGLY.
[2023-07-25 19:40] VITALS: BP 121/73
[2023-07-26 00:22] VITALS: BP 147/82
[2023-07-26 04:15] VITALS: BP 149/71
[2023-07-26 05:39] LABS: BASOPHILS ABSOLUTE AUTO 0.08 K/mm3 (0.00-0.23); BASOPHILS PERCENT AUTO 1 % (0-2); EOSINOPHILS ABSOLUTE AUTO 0.19 K/mm3 (0.00-0.68); EOSINOPHILS PERCENT AUTO 2 % (0-6); Hematocrit 42.3 % (33.0-51.0); Hemoglobin 14.3 g/dL (11.5-16.0); IMMATURE GRAN ABSOLUTE AUTO 0.05 K/mm3 (0.00-0.10); IMMATURE GRAN PERCENT AUTO 1 % (0-1); LYMPHOCYTES ABSOLUTE AUTO 1.42 K/mm3 (0.84-5.20); LYMPHOCYTES PERCENT AUTO 13 % (21-46); MONOCYTES ABSOLUTE AUTO 0.73 K/mm3 (0.16-1.47); MONOCYTES PERCENT AUTO 7 % (4-13); Mean Corpuscular HGB 29.1 pg (26.0-34.0); Mean Corpuscular HGB Conc 33.8 g/dL (31.5-36.5); Mean Corpuscular Volume 86 fL (80-100); Mean Platelet Volume 11.7 fL (9.1-12.4); NEUTROPHILS ABSOLUTE AUTO 8.09 K/mm3 (1.96-9.15); NEUTROPHILS PERCENT AUTO 77 % (41-73); Platelet Count 144 K/mm3 (150-400); RDW Coefficient Variation 12.3 % (11.7-14.2); RDW Standard Deviation 39.1 fL (35.1-46.3); Red Blood Cell Count 4.91 M/mm3 (3.80-5.20); White Blood Cell Count 10.56 K/mm3 (4.00-11.30)
--- NOTE | 2023-07-26 05:57 | NUR ---
End of shift note. Pt was restless/ agitated for periods this evening but once family went home Pt was able to settle and rest. Pt has been repositioned regularly. Seems to have some verbal improvement but Pt is unable to respond appropriately. Family seemed to be encouraged by some of the improvements this evening. Pt is currently resting in bed, bed alarm is active.
[2023-07-26 05:59] LABS: Albumin, Blood 2.9 g/dL (3.4-5.0); Anion Gap 13 mmol/L (6-16); Blood Urea Nitrogen 23 mg/dL (8-24); Bun/Creatinine Ratio 26.3 (12.0-20.0); CO2, Blood 16 mmol/L (21-32); Calcium, Blood 9.3 mg/dL (8.5-10.1); Chloride, Blood 115 mmol/L (98-108); Creatinine, Blood 0.88 mg/dL (0.40-1.00); Glomerular Filtration Rate 72 (60-); Glucose, Blood 240 mg/dL (70-99); Magnesium, Blood 1.8 mg/dL (1.6-2.4); Phosphorus, Blood 3.4 mg/dL (2.5-4.9); Potassium, Blood 3.9 mmol/L (3.5-5.5); Sodium, Blood 144 mmol/L (136-145); Vancomycin, Trough 18.1 ug/mL (5.0-10.0)
[2023-07-26 07:31] VITALS: BP 140/88
--- NOTE | 2023-07-26 13:14 | NUR ---
AM NOTE: PT CONTINUES LETHARGIC. PT DID HAVE SOME MOMENTS OF CLARITY W/ABILITY TO STATE "I'M NOT SURE WHAT IS GOING ON", "I'M SCARED", "MY HEAD IS FUZZY", "IT MAKES ME SNOOZY", BUT MAJORITY OF THE TIME SHE IS NOT ANSWERING QUESTIONS OR FOLLOWING DIRECTION, AND SLEEPING OFTEN. RESPIRATIONS EVEN AND UNLABORED, O2 SATS >93% ON RA, VS STABLE. ADMISSION STATUS HAS BEEN CHANGED TO MEDICAL, TELE MONITORING DC'd. PT IS INCONTINENT, ATTENDS IN PLACE, CHECKED FREQUENTLY AND CHANGED NEEDED. REPOSITIONING Q2H. WILL CONTINUE TO MONITOR AND TREAT ACCORDINGLY.
[2023-07-26 16:16] VITALS: BP 152/109
--- NOTE | 2023-07-26 18:54 | NUR ---
SHIFT SUMMARY: NO ACUTE CHANGES SINCE THIS AM's NOTE. PT SLEEPS OFTEN BUT HAVING MOMENTS OF CLEAR SPEECH AND MAINTAINING EYE CONTACT. ATTENDS CHANGED PRN AND PT REPOSITIONED Q2H. FAMILY UPDATED AT BEDSIDE. ALL ASSESSMENTS FOR IGNITABLE SOURCES HAVE BEEN NEGATIVE. WILL CONTINUE TO MONITOR AND TREAT ACCORDINGLY UNTIL CHANGE OF SHIFT.
[2023-07-26 20:00] VITALS: BP 155/87
--- NOTE | 2023-07-26 20:32 | NUR ---
ASSUMPTION OF CARE THIS RN ASSUMED CARE OF PT AT 1915. PT RESTING IN ROOM, PT SOMNOLENT ; NOT OPENING EYES TO VERBAL OR TACTILE STIMULUS. PT DOES NOT APPEAR TO BE IN DISTRESS AT THIS TIME. FAMILY AT BEDSIDE. FAMILY REPORTS PT HAD A "BETTER DAY" AND HAD TIMES OF BEING MORE COHERENT AND TALKING "SOME". VSS. PT ON RA; NO RESPIRATORY DISTRESS NOTED. ATTENDS IN PLACE AND DRY. CALL LIGHT IN REACH.
[2023-07-27 04:08] LABS: BASOPHILS ABSOLUTE AUTO 0.09 K/mm3 (0.00-0.23); BASOPHILS PERCENT AUTO 1 % (0-2); EOSINOPHILS PERCENT AUTO 3 % (0-6); Hematocrit 41.4 % (33.0-51.0); Hemoglobin 12.9 g/dL (11.5-16.0); IMMATURE GRAN ABSOLUTE AUTO 0.05 K/mm3 (0.00-0.10); IMMATURE GRAN PERCENT AUTO 1 % (0-1); LYMPHOCYTES ABSOLUTE AUTO 1.29 K/mm3 (0.84-5.20); LYMPHOCYTES PERCENT AUTO 14 % (21-46); MONOCYTES ABSOLUTE AUTO 0.64 K/mm3 (0.16-1.47); MONOCYTES PERCENT AUTO 7 % (4-13); Mean Corpuscular HGB 28.7 pg (26.0-34.0); Mean Corpuscular HGB Conc 31.2 g/dL (31.5-36.5); Mean Platelet Volume 11.1 fL (9.1-12.4); NEUTROPHILS PERCENT AUTO 75 % (41-73); Platelet Count 165 K/mm3 (150-400); RDW Coefficient Variation 12.6 % (11.7-14.2); RDW Standard Deviation 42.4 fL (35.1-46.3); Red Blood Cell Count 4.49 M/mm3 (3.80-5.20); White Blood Cell Count 9.27 K/mm3 (4.00-11.30)
[2023-07-27 04:12] VITALS: BP 172/82
[2023-07-27 04:23] LABS: Bun/Creatinine Ratio 34.6 (12.0-20.0); Creatinine, Blood 0.9 mg/dL (0.40-1.00); Mean Corpuscular Volume 92 fL (80-100); Potassium, Blood 5.1 mmol/L (3.5-5.5)
[2023-07-27 06:29] VITALS: BP 133/82
--- NOTE | 2023-07-27 07:12 | NUR ---
SHIFT SUMMARY PT ALERTNESS IS WAXING AND WANING; AT TIMES PT IS AWAKE AND TRACKING. OTHER TIMES PT IS NOT OPENING EYES OR IS NOT TRACKING EVEN WITH EYES BEING OPEN. PT IS VERBALIZING; SOME OF THE TIME RESPONSES ARE NOT RELEVANT OR COHERENT, OTHER TIMES THEY ARE APPROPRIATE RESPONSES. PT BECOMES FEARFUL DURING CARE AT TIMES; YELLING OUT "OH GOD" "PLEASE DON'T DO THIS, PLEASE STOP" "THAT IS HURTING ME". PT ABLE TO BE VERBALLY CALMED. VSS THROUGHOUT SHIFT. ALTHOUGH LAST SBP 172; HYDRALAZINE ADMINISTERED PER EMAR. REPEAT BLOOD PRESSURE SHOWS SBP 133. ATTENDS IN PLACE AND CHANGED PRN. WILL UPDATE ONCOMING RN
--- NOTE | 2023-07-27 07:54 | NUR ---
CARE ASSUMPTION PT MEDICAL NO TELE STATUS. WOKE TO VERBAL STIMULATION. PT OPENING EYES, MAKING EYE CONTACT WHEN SPOKEN TO. PT NOT ANSWERING Q's OR FOLLOWING SIMPLE INSTRUCTIONS SUCH LIFTING ARM FOR BP ASSESSMENT. PT REPEATING "THAT'S SO FUNNY. SHIT. THAT'S FUNNY. OH I'M SORRY, THAT'S RUDE. I SHOULDN'T SAY THAT. SHIT. THAT'S FUNNY.." THIS RN ATTEMPTING TO ASK PT Qs, PT JUST REPEATING "THAT'S SO FUNNY." PT HAVING CONVERSATIONS WITH SELF IN RM, PAUSING, THEN COMMENTING BACK IF TALKING TO SOMEONE. PT VSS. SPO2 > 92% ON RA. BED ALARM ON.
[2023-07-27 08:02] VITALS: BP 149/74
--- NOTE | 2023-07-27 09:55 | NUR ---
UPDATE PT DISROBED HERSELF. STAFF IN TO ASSIST W/ REDRESSING. PT STATING "JUST LET ME . I WANT TO . JUST LET ME ." PT COMFORTED & REDRESSED. PT UNABLE TO FOLLOW INSTRUCTIONS W/ REDRESSING. PT THEN BACK TO SLEEP. BED ALARM ON.
--- NOTE | 2023-07-27 14:04 | NUR ---
Spiritual Care Attempted. Pt. is somnilent and mostly non responsive. Met Pts. Spouse and daughter in the hallway. The family is known to this counseling services director from the community. Family verbalized gratitude from knowing I would remain available to the Pt.
[2023-07-27 15:03] VITALS: BP 151/84
--- NOTE | 2023-07-27 15:20 | NUR ---
Pt. is resting and is mostly non-responsive. Spouse is present so I facilitated a lifereview and re-established rapport as I know the family from the community. Listened with Empathy and a calming presence. Spouse displays evidence on being both aware and engaged as a primary care-operations superintendent for the Pt. Spouse had some questions for this waiter/waitress cocktail lounge. Consdered matters of pamela and belief, and was able to provide responses that displayed evidence of comfort and gratitude to the spouse. Was able to provide Spouse with some information that proved helpful to him. Prayed with Pt. and spouse. Spouse verbalized gratitude for the spiritual care visit.
--- NOTE | 2023-07-27 18:48 | NUR ---
END OF SHIFT PT CONTINUES TO SLEEP INTERMITTENTLY & IS SOMETIMES DIFFICULT TO WAKE & OTHER TIMES PT WAKES EASILY & IS COMPLETELY ALERT & MAKING EYE CONTACT. PT TALKING TO STAFF, BUT SPEECH IS MOSTLY NONSENSICAL. VSS. PT INCONTINENT, WEARING ATTENDS. PT SOMETIMES FEARFUL WHEN ROLLING PT ONTO SIDE IN BED FOR REPOSITIONING/ATTENDS CHANGES DESPITE PROVIDED ASSURANCE. BED ALARM. FAMILY AT BEDSIDE T/O SHIFT.
[2023-07-27 20:43] VITALS: BP 109/84
[2023-07-27 23:47] VITALS: BP 152/100
[2023-07-28 04:41] VITALS: BP 155/100
[2023-07-28 05:21] LABS: BASOPHILS ABSOLUTE AUTO 0.07 K/mm3 (0.00-0.23); BASOPHILS PERCENT AUTO 1 % (0-2); EOSINOPHILS PERCENT AUTO 3 % (0-6); Hematocrit 38.9 % (33.0-51.0); IMMATURE GRAN ABSOLUTE AUTO 0.02 K/mm3 (0.00-0.10); IMMATURE GRAN PERCENT AUTO 0 % (0-1); LYMPHOCYTES ABSOLUTE AUTO 1.07 K/mm3 (0.84-5.20); LYMPHOCYTES PERCENT AUTO 13 % (21-46); MONOCYTES ABSOLUTE AUTO 0.66 K/mm3 (0.16-1.47); MONOCYTES PERCENT AUTO 8 % (4-13); Mean Corpuscular HGB 28.6 pg (26.0-34.0); Mean Corpuscular HGB Conc 33.4 g/dL (31.5-36.5); Mean Platelet Volume 10.5 fL (9.1-12.4); NEUTROPHILS PERCENT AUTO 75 % (41-73); Platelet Count 173 K/mm3 (150-400); RDW Coefficient Variation 12.9 % (11.7-14.2); RDW Standard Deviation 39.7 fL (35.1-46.3); Red Blood Cell Count 4.54 M/mm3 (3.80-5.20); White Blood Cell Count 8.02 K/mm3 (4.00-11.30)
[2023-07-28 05:45] LABS: Albumin/Globulin Ratio 0.7 (0.8-1.8); Bilirubin, Total 0.6 mg/dL (0.1-1.0); Bun/Creatinine Ratio 34.3 (12.0-20.0); Creatinine, Blood 0.82 mg/dL (0.40-1.00); Globulin, Blood 4.2 g/dL (2.2-4.0); Potassium, Blood 3.6 mmol/L (3.5-5.5); Total Protein, Blood 7.2 g/dL (6.4-8.2)
[2023-07-28 06:06] LABS: Mean Corpuscular Volume 86 fL (80-100)
--- NOTE | 2023-07-28 06:31 | NUR ---
NOC SHIFT SUMMARY PT ORIENTED ONLY TO SELF, MENTATION WANES FROM ALERT TO LETHARGIC. PT WITH NONSENSICAL SPEECH BUT CLEAR. JOBY. VSS ON RA. WEAK IN ALL EXTREMITIES. INCONTINENT, WICKING SYSTEM PLACED FOR ACCURATE I&OS. PT YELLS OUT AT TIMES, ANXIOUS. NPO - ORAL CARE COMPLETED. Q6 BLOOD SUGARS UNDER 200. WILL PASS ON TO DAY RN
[2023-07-28 08:18] VITALS: BP 185/78
[2023-07-28 12:39] VITALS: BP 162/82
--- NOTE | 2023-07-28 15:18 | NUR ---
TRANSFER MEDICAL PT ALERT, UNABLE TO ASSESS ORIENTATION. PT DOES NOT ANSWER Qs. PT TALKS, BUT SPEECH NONSENSICAL. VSS. SPO2 > 92% ON RA. PT MEDICAL NO TELEMETRY STATUS. SPEECH THERAPY ATTEMPT TO SEE PT THIS AM BUT PT NOT FOLLOWING INSTRUCTIONS. PT INCONTINENT OF URINE. PT LOWER ABD DISTENDED. BLADDER SCAN DONE, SHOWING > 999 MLS URINE. STRAIGHT CATH DONE, W/ APPROX 1300 MLS DRAINED. PT AGGITATED DURING STRAIGHT CATH, REQUIRING MULTIPLE STAFF ASSIST. PT CALM & ABLE TO SLEEP POST VOID. ATTENDS IN PLACE. PT SPEAKING MORE SENSICALLY THIS AFTERNOON, REPEATEDLY STATING WANTING A DRINK. PT MORE ALERT. ATTEMPT MADE TO PUT CUP OF WATER TO PT LIPS W/ PT NOT RESPONDING TO CUP. PT TALKING ABOUT WANTING A DRINK, BUT NOT DOING ANYTHING W/ THE CUP OF WATER HELD TO HER LIPS FOR HER. LATER IN AFTERNOON, PT REPORTED TO BE "FOLLOWING INSTRUCTIONS." THIS RN WENT INTO . PT SITTING COMPLETELY UPRIGHT. PT WOULD NOT FOLLOW VERBAL INSTRUCTIONS, BUT PT DID OPEN MOUTH WHEN PUTTING ORAL SPONGE TO PT MOUTH. PT THEN SUCCESSFULLY TOOK SWALLOW OF WATER FROM CUP W/ STRONG SWALLOW SOUND NOTED. PT THEN STATING "THAT'S REALLY GOOD. IT COULD BE BETTER. I LIKE THAT. THAT'S REALLY GOOD. I LIKE THAT." PT THEN SWALLOWING 2ND & 3RD SIP W/ OUT SIGNS OF ASPIRATION. PT SMILING, REPEATEDLY STATING QUOTE ABOVE.
--- NOTE | 2023-07-28 15:45 | NUR ---
Case Conference Note Pt just transfered to her room on medical floor. Pt's RN and PHOTOGRAPHER are providing care for Pt. Met with Pt's Paul and Pt's daughter [place] out in [place]. Gentle education on advanced care planning. Educated on disease process including trajectory. Discussed the importance of planning for the future as disease progresses. Offered therapeutic listening and answered questions. Discussed considering completing POLST. Educated on each section to complete and choices. Family will considering completing POLST. Family expresses appreciation and reports no other concerns at this time. Spoke with Primary RN Sami and discussed case. Palliative Care will remain available
--- NOTE | 2023-07-28 19:48 | NUR ---
ADMIT/SHIFT SUMMARY: PT ADMIT TO MEDICAL FLOOR @1515 FROM PCU. PT SLEEPY UPON ARRIVAL. D5 1/2NS STARTED ON PT IN DOUG PG. TOLERATING WELL. PT HAD NOT VOIDED SINCE PCU. THIS RN CONCERNED AND DECIDED TO BLADDER SCAN SHOWING >350ML IN BLADDER. STAFF ABLE TO STRAIGHT CATH PT. PT TOLERATED POORLY ATTEMPTING TO HIT, SCRATCH, AND KICK STAFF. 400ML CLOUDY URINE EMPTIED. PT FAMILY STATES PT IS TOLERATING WATER FROM [place]EN [place] AND WOULD LIKE TO ATTEMPT SPEECH EVAL TOMORROW WHEN PT IS ALERT. FAMILY AT BEDSIDE. LARGE BRUISE ON INSIDE OF OMAR. CALL LIGHT IN REACH. BED IN LOWEST POSITION. CRIMINAL INVESTIGATIVE AGENT RN GIVEN REPORT.
[2023-07-28 20:04] VITALS: BP 164/81
--- NOTE | 2023-07-28 21:22 | NUR ---
FOUND ON FLOOR FACE UP, LAYING FLAT. NO NOTED OPEN ANOMALIES. (HAD BEEN IN BED EARLIER WITH FAMILY AT BEDSIDE VISITING). UNKNOWN WHEN FAMILY LEFT. POSITIVE BILAT BABINSKI, FINANCE TEACHER EQUAL. PUPILS EQUAL 2MM /2MM. ASSISTED BACK UP INTO BED. RAILS UP X 3. BED ALARM ON. O2 SATS 55% PER PULSE OX. RT NOTIFIED. RT AT BEDSIDE, CHARGE NURSE NOTIFIED. CALL PLACED TO MD STAVE JOINTER, HEAD CT WITHOUT CONTRAST ORDERED. CALL LIGHT IN REACH. TEACHER [employer]UR[employer] TO SIT NEAR BEDSIDE. WILL CONTINUE TO RUTH
--- NOTE | 2023-07-28 22:38 | NUR ---
DAUGHTER AT BEDSIDE. VOICED SHE IS THE PERSON TO CALL IF NEEDING TO CONTACT FAMILY. PH NUMBER ON BOARD NOW. PT BEHAVIOR AND AFFECT/SPEECH SIMILAR TO THAT OF WHEN NURSE ASSESSED PT PRIOR TO BEING FOUND ON FLOOR. NO NOTED S/S PAIN OR ACUTE PHYSICAL DISTRESS. O2 SATS 99% PER EAR PROBE. RAILS UP X 3. BED ALARM ON. CALL LIGHT IN REACH. HOB ELEVATED ABOUT 30 DEGREES.
--- NOTE | 2023-07-29 05:41 | NUR ---
SHIFT SUMMARY: PT IS ADMITTED FOR SEPSIS R/T UTI AND IS A DNR. IS ALERT BUT NOT ABLE TO MAKE NEED KNOWN SHE HAS CONFUSION. ADL S ARE 1 OR 2P DEPENDING ON WHAT IS NEEDED. HAND OVER HAND CUEING SEEMED TO BE MOST HELPFUL DURING THIS SHIFT. AT THE FIRST PART OF THE SHIFT SHE WAS RESTLESS AND HAD A FALL. FAMILY AND PROVIDER NOTIFIED. RESTLESSNESS KEPT UP THROUGH ABOUT HALF THE SHIFT. BLADDER SCANNED DO TO LACK OF VOID SHOWED JUST LESS THAN 500 ML. PLACED WARREN THAT IS PATENT AT THIS TIME. MIDLINE IV TO RIGHT UPPER ARM IS PATENT WITH CDI DRESSING AND IS RUNNING 5% DEXTROSE @ 100ML/H DO TO BEING NPO AT THIS TIME. FAMILY AT BEDSIDE MOST OF SHIFT.
[2023-07-29 06:01] VITALS: BP 156/74
[2023-07-29 06:15] LABS: BASOPHILS ABSOLUTE AUTO 0.06 K/mm3 (0.00-0.23); BASOPHILS PERCENT AUTO 1 % (0-2); EOSINOPHILS ABSOLUTE AUTO 0.33 K/mm3 (0.00-0.68); EOSINOPHILS PERCENT AUTO 5 % (0-6); Hematocrit 37.1 % (33.0-51.0); Hemoglobin 12.3 g/dL (11.5-16.0); IMMATURE GRAN ABSOLUTE AUTO 0.02 K/mm3 (0.00-0.10); IMMATURE GRAN PERCENT AUTO 0 % (0-1); LYMPHOCYTES ABSOLUTE AUTO 1.36 K/mm3 (0.84-5.20); LYMPHOCYTES PERCENT AUTO 18 % (21-46); MONOCYTES ABSOLUTE AUTO 0.78 K/mm3 (0.16-1.47); MONOCYTES PERCENT AUTO 11 % (4-13); Mean Corpuscular HGB 28.8 pg (26.0-34.0); Mean Corpuscular HGB Conc 33.2 g/dL (31.5-36.5); Mean Corpuscular Volume 87 fL (80-100); Mean Platelet Volume 10.8 fL (9.1-12.4); NEUTROPHILS ABSOLUTE AUTO 4.86 K/mm3 (1.96-9.15); NEUTROPHILS PERCENT AUTO 66 % (41-73); Platelet Count 165 K/mm3 (150-400); RDW Standard Deviation 40.9 fL (35.1-46.3); Red Blood Cell Count 4.27 M/mm3 (3.80-5.20); White Blood Cell Count 7.41 K/mm3 (4.00-11.30)
[2023-07-29 06:36] LABS: Albumin, Blood 2.8 g/dL (3.4-5.0); Albumin/Globulin Ratio 0.7 (0.8-1.8); Bilirubin, Total 0.4 mg/dL (0.1-1.0); Bun/Creatinine Ratio 32.1 (12.0-20.0); Calcium, Blood 10.5 mg/dL (8.5-10.1); Creatinine, Blood 0.66 mg/dL (0.40-1.00); Globulin, Blood 4.1 g/dL (2.2-4.0); Potassium, Blood 3.2 mmol/L (3.5-5.5); Total Protein, Blood 6.9 g/dL (6.4-8.2)
[2023-07-29 07:38] VITALS: BP 148/83
--- NOTE | 2023-07-29 14:38 | NUR ---
"Spiritual Care| Family Support and Pt. visit Pt. has visitors when I arrive, but i meet with Pts. daughter in the hallway. Facilitate a long life review, answer some questions, and seek to normalize the Pt. experience. Daughter was unsettled by how the Pt. fell out of her bed. Listen with empathy and a calming presence. After Pts. visitors arrive I approached bedside where I am greeting by Pt. and her spouse. Pt. displayed evidence of awareness, but also exhaustion. This perishable freight inspector sought to keep the visit short. Listen and encourage the Pt. with the progress seen in her awareness and measured engagement. Prayed with Pt. Family verbalized gratitude for the spiritual care visit. Will remain available to Pt. and family."
[2023-07-29 14:47] LABS: Bun/Creatinine Ratio 22.8 (12.0-20.0); Calcium, Blood 9.7 mg/dL (8.5-10.1); Creatinine, Blood 0.79 mg/dL (0.40-1.00); Potassium, Blood 3.5 mmol/L (3.5-5.5)
--- NOTE | 2023-07-29 15:22 | NUR ---
ASSUMED CARE OF PATIENT UPON HER TRANSFER FROM ROOM 310 TO ROOM 352 AT 1500. APPEARS TO BE SLEEPING. WARREN DRAINING YELLOW URINE. ATTENDS CHANGED AND PT REPOSITIONED. PLACED IN YELLOW GOWN PER UNIT PROTOCOL AFTER FALL LAST NIGHT. D5W INFUSING INTO DOUG POWERGLIDE IV. SEIZURE PADS PLACED ON BED. FAMILY AT BEDSIDE. BED ALARM ON WITH THREE SIDE RAILS UP, BED IN LOWEST POSITION, CALL LIGHT IN REACH.
[2023-07-29 15:28] VITALS: BP 127/63
--- NOTE | 2023-07-29 18:13 | NUR ---
SHIFT SUMMARY: NO EVENTS SINCE TRANSFER TO THIS ROOM, HAS BEEN SLEEPING. SPOUSE AT BEDSIDE. HAS VIRTUAL DEPUTY BAILIFF IN PLACE. IVF INFUSING. CBG BEFORE DINNER WAS 385; NOTIFIED Karen MYLES NP (PROVIDER ON-CALL), NO ADDITIONAL INSULIN ORDERED. POTASSIUM REPLACED. BED IN LOWEST POSITION, BRAKE ON, BED ALARM ON, BED CONNECTED TO CALL SYSTEM, THREE SIDE RAILS UP; CALL LIGHT IN REACH.
[2023-07-29 20:24] VITALS: BP 132/68
--- NOTE | 2023-07-29 20:33 | NUR ---
HOSPITALIST NOTIFIED PT HS CBG 358. ORDERS GIVEN TO STOP D5%W INFUSION. ORDER AM BMP TO CHECK SODIUM, BLOOD GLUCOSE, GIVE 5 UNITS HUMALOG PER SLIDING SCALE, AND START LANTUS 10 UNITS NOW AND AT BEDTIME.
--- NOTE | 2023-07-30 02:05 | NUR ---
SHIFT SUMMARY NOC PT A/O X 0. HIGHLY CONFUSED AND DIFFICULT TO PROVIDE CARE TO. PT EVENING CBG 358 AND HOSPITALIST NOTIFIED. PT PASSED ST EVALUATION AND ON SOFT BITE SIZE DIET. ORDER GIVEN TO STOP IV D5W AND TO GIVE 5 UNITES PER SLIDING SCALE AND RESTART LONG ACTING INSULIN 10 UNITS AT BEDTIME. AM BMP ORDERED TO MONITOR HYPERNATREMIA. PT HAS WARREN IN PLACE AND PG DOUG. PT HAS ELECTRONIC HEBREW PROFESSOR REMOTE MONITORING IN PLACE, NO SIGNIFICANT EVENTS NOTED SO FAR. PT IS CURRENTLY RESTING WITH BED ALARM ON, BED IN LOWEST POSITION, AND CALL LIGHT WITHIN REACH.
[2023-07-30 05:37] LABS: BASOPHILS ABSOLUTE AUTO 0.05 K/mm3 (0.00-0.23); BASOPHILS PERCENT AUTO 1 % (0-2); EOSINOPHILS ABSOLUTE AUTO 0.39 K/mm3 (0.00-0.68); EOSINOPHILS PERCENT AUTO 5 % (0-6); Hematocrit 37.7 % (33.0-51.0); Hemoglobin 12.6 g/dL (11.5-16.0); IMMATURE GRAN ABSOLUTE AUTO 0.04 K/mm3 (0.00-0.10); IMMATURE GRAN PERCENT AUTO 1 % (0-1); LYMPHOCYTES ABSOLUTE AUTO 1.77 K/mm3 (0.84-5.20); LYMPHOCYTES PERCENT AUTO 24 % (21-46); MONOCYTES ABSOLUTE AUTO 0.64 K/mm3 (0.16-1.47); MONOCYTES PERCENT AUTO 9 % (4-13); Mean Corpuscular HGB 28.6 pg (26.0-34.0); Mean Corpuscular HGB Conc 33.4 g/dL (31.5-36.5); Mean Corpuscular Volume 86 fL (80-100); Mean Platelet Volume 10.9 fL (9.1-12.4); NEUTROPHILS ABSOLUTE AUTO 4.45 K/mm3 (1.96-9.15); NEUTROPHILS PERCENT AUTO 61 % (41-73); Platelet Count 144 K/mm3 (150-400); RDW Coefficient Variation 12.5 % (11.7-14.2); White Blood Cell Count 7.34 K/mm3 (4.00-11.30)
[2023-07-30 05:48] VITALS: BP 148/81
[2023-07-30 06:11] LABS: Albumin, Blood 2.6 g/dL (3.4-5.0); Albumin/Globulin Ratio 0.7 (0.8-1.8); Bilirubin, Total 0.4 mg/dL (0.1-1.0); Bun/Creatinine Ratio 21.8 (12.0-20.0); Calcium, Blood 9.4 mg/dL (8.5-10.1); Creatinine, Blood 0.69 mg/dL (0.40-1.00); Globulin, Blood 3.7 g/dL (2.2-4.0); Potassium, Blood 3.1 mmol/L (3.5-5.5); Total Protein, Blood 6.3 g/dL (6.4-8.2)
[2023-07-30 08:02] VITALS: BP 143/75
[2023-07-30 16:01] VITALS: BP 116/64
--- NOTE | 2023-07-30 17:22 | NUR ---
Spiritual Care Visit. Pt. is smiling. Spouse and family are present and welcome my visit. Pt. displays evidence of confusion, and verbalizes that she doesn't recognize me, though she has known this kitchen manager in the neighborhood and local mandaeism communities. Pt. grabs my hand and I pray with her soon after I enter the room. [place] with a calming presence. Facilitate conversation with the family, who display evidence of significant support. Family verbalizes that the Pt. is more awake and more alert than she has been for 'quite awhile." Family verbalize gratitude for the spiritual care visit.
--- NOTE | 2023-07-30 18:00 | NUR ---
SHIFT SUMMARY PT AOX0 BUT FOLLOWING DIRECTIONS TO A CERTAIN EXTENT THIS SHIFT. UP TO THE CHAIR FOR BREAKFAST. ST ADVANCED HER TO ORAL MEDICATIONS, 1 AT A TIME WITH WATER. PT HAS TOLERATED WELL TODAY. MEDICATED FOR NECK PAIN PER THE EMAR. SLIDING SCALE INCREASED TO HIGH SLIDING SCALE PER THE PROVIDER. FAMILY HAS BEEN AT THE BS ALL SHIFT. CALL LIGHT WITHIN REACH, BED IN THE LOWEST POSITION. WILL REPORT TO ONCOMING NURSE.
[2023-07-30 19:39] VITALS: BP 129/70
--- NOTE | 2023-07-30 19:49 | NUR ---
RECHECKED BS AT [address] BARBOSA. NO FURTHER ORDERS GIVEN.
[2023-07-31 05:20] VITALS: BP 130/70
--- NOTE | 2023-07-31 05:34 | NUR ---
SHIFT SUMMARY PT A&O X0, COOPERATIVE WITH CARE. CAMERA IN PLACE AND HAVE BEEN ALERTED BY THEM ONCE FOR PT PULLING AT IV/LINES. BEDREST, INCONTINENT, WARREN IN PLACE. PT TAKING PILLS WHOLE 1 AT A TIME SLOWLY WITH WATER. BS COVERAGE HAS BEEN CHANGED TO HIGH SLIDING SCALE. SEE NOT REAGARDING HS BS AND INSULIN DOSING. PT COMPLAINED OF NECK PAIN-MEDICATED PER EMAR. BED KEPT IN LOWEST POSITION WITH BED ALARM SET AND CALL LIGHT WITHIN REACH. WILL CONTINUE TO MONITOR.
[2023-07-31 05:55] LABS: BASOPHILS ABSOLUTE AUTO 0.06 K/mm3 (0.00-0.23); BASOPHILS PERCENT AUTO 1 % (0-2); EOSINOPHILS ABSOLUTE AUTO 0.38 K/mm3 (0.00-0.68); EOSINOPHILS PERCENT AUTO 5 % (0-6); Hematocrit 34.2 % (33.0-51.0); Hemoglobin 11.4 g/dL (11.5-16.0); IMMATURE GRAN ABSOLUTE AUTO 0.04 K/mm3 (0.00-0.10); IMMATURE GRAN PERCENT AUTO 1 % (0-1); LYMPHOCYTES ABSOLUTE AUTO 1.77 K/mm3 (0.84-5.20); LYMPHOCYTES PERCENT AUTO 24 % (21-46); MONOCYTES ABSOLUTE AUTO 0.51 K/mm3 (0.16-1.47); MONOCYTES PERCENT AUTO 7 % (4-13); Mean Corpuscular HGB 28.9 pg (26.0-34.0); Mean Corpuscular HGB Conc 33.3 g/dL (31.5-36.5); Mean Corpuscular Volume 87 fL (80-100); Mean Platelet Volume 11.2 fL (9.1-12.4); NEUTROPHILS ABSOLUTE AUTO 4.51 K/mm3 (1.96-9.15); NEUTROPHILS PERCENT AUTO 62 % (41-73); Platelet Count 131 K/mm3 (150-400); RDW Coefficient Variation 12.3 % (11.7-14.2); RDW Standard Deviation 39.2 fL (35.1-46.3); Red Blood Cell Count 3.94 M/mm3 (3.80-5.20); White Blood Cell Count 7.27 K/mm3 (4.00-11.30)
[2023-07-31 06:55] LABS: Bun/Creatinine Ratio 26.3 (12.0-20.0); Calcium, Blood 9.3 mg/dL (8.5-10.1); Creatinine, Blood 0.68 mg/dL (0.40-1.00); Potassium, Blood 3.8 mmol/L (3.5-5.5)
[2023-07-31 07:11] VITALS: BP 129/98
[2023-07-31 15:05] VITALS: BP 120/65
--- NOTE | 2023-07-31 16:13 | NUR ---
SHIFT SUMMARY PATIENT FIGGITY THIS SHIFT, PULLING ON LINES. PLEASANT DEMEANOR, EASILY REDIRECTABLE. 2 PERSON TRANSFER TO CHAIR THIS SHIFT, PATIENT UNABLE TO SHUFFLE LEGS AND WAS MAX ASSIST FOR SAFETY. BLADDER TRAINING PER DOC BURDEN, PLAN TO REMOVE WARREN THIS SHIFT. WILL CONTINUE TO MONITOR
[2023-07-31 19:50] VITALS: BP 146/82
[2023-08-01 04:15] VITALS: BP 145/93
--- NOTE | 2023-08-01 06:30 | NUR ---
SHIFT SUMMARY PT IS A&O TO SELF, RA, BEDREST DUE TO WEAKNESS, BRIANA REORDERED THIS SHIFT FOR RETENTION PER PROVIDER, NO COMPLAINTS OF PAIN OVERNIGHT, CONTINUE POC
[2023-08-01 07:26] VITALS: BP 146/94
[2023-08-01 15:23] VITALS: BP 137/77
--- NOTE | 2023-08-01 16:55 | NUR ---
SHIFT SUMMARY PATIENT CONTINUES TO REQUIRE WARREN CATH. PULLING ON LINES LESS THAN YESTERDAY. NO ATTEMPTS TO BED EXIT THIS SHIFT. NOT ORIENTED. APAP FOR PAIN. WILL CONTINUE TO MONITOR
[2023-08-01 19:28] VITALS: BP 148/65
[2023-08-02 02:46] VITALS: BP 140/80
[2023-08-02 07:43] VITALS: BP 156/80
[2023-08-02 15:25] VITALS: BP 142/99
--- NOTE | 2023-08-02 18:46 | NUR ---
SUMMARY- PT CALM AND COOPERATIVE THIS SHIFT. X2 ASSIST WITH WALKER AND GAIT BELT. AAOX1 ONLY. PT IS EATING COOKIES, COFFEE DRINKS, AND POTATO CHIPS BROUGHT IN BY FAMILY IN BETWEEN MEALS. PT/FAMILY EDUCATED ON ADA DIET. FAMILY VERBALIZED UNDERSTANDING.
[2023-08-02 20:28] VITALS: BP 137/68
--- NOTE | 2023-08-02 22:07 | NUR ---
PT HS CBG WAS 362. NOTIFIED HOSPITALIST SHAR. INFORMED SHAR THAT THE ORDER WAS TO GIVE 6 UNITS OF HUMALOG TO WHICH SHAR SEEMED SATISFIED. NO ORDERS AT THIS TIME
[2023-08-03 03:12] VITALS: BP 137/75
--- NOTE | 2023-08-03 04:05 | NUR ---
shift summary. pt has been completely disoriented throughout shift although has been pleasant and cooperative with care. has slept through most of shift after med pass and shift assessment. incontinent with jin catheter in place. jin is draining well with no complaints of pain/discomfort. bedrest thus far. was asking who and where she was early in shift, educated on both points to which pt continued to ask these same questions for some time. does not use call light but will call out into [place] and is able to make needs known. bed locked in lowest position. call light left within reach.
[2023-08-03 08:04] VITALS: BP 128/74
[2023-08-03 16:09] VITALS: BP 119/58
--- NOTE | 2023-08-03 16:11 | NUR ---
Spiritual Care visit. Pt. is resting. Spouse is bedside and welcomes my visit. [place] family are presents. Spouse verbalizes an update of Pts. condition and plan of care. Facilitate a conversation about family and relationships. In the process Pt. awakes and is pleasant though displays evidence of confusion. Prayed for Pt. with family present. Spouse verbalized gratitude for the spiritual care visit. This accounts receivable analyst will remain available to the Pt. and family.
--- NOTE | 2023-08-03 17:58 | NUR ---
SHIFT SUMMARY: PT IS A 67 YEAR OLD FEMALE HERE BEING TREATED FOR UROSEPSIS. SHE HAS BEEN PLEASANT AND COOPERATIVE. SHE IS CONFUSED AND IS ALERT AND ORIENTED TO SELF AND FAMILY. SHE IS AMBULATORY IN THE ROOM/RESTROOM WITH ASSISTANCE. SHE IS EATING AND DRINKING WELL. PLAN OF CARE ONGOING.
[2023-08-03 20:10] VITALS: BP 129/61
[2023-08-04 03:29] VITALS: BP 125/100
--- NOTE | 2023-08-04 05:54 | NUR ---
SHIFT SUMMARY 67 YR F ADMITTED ON 07/24/23 FOR UROSEPSIS. DNR. PT'S FAMILY WAS PRESENT AT BEGINNING OF SHIFT AND SHE APPEARED TO BE A&O. HOWEVER, ONCE THE FAMILY LEFT THE PT BECAME MORE INCREASINGLY CONFUSED WAS SAYING THINGS THAT DID NOT MAKE SENSE. SHE WAS ABLE TO TAKE ORAL MEDS WHOLE W/ WATER. SHE HAS SLEPT FOR MULTIPLE HOURS THIS SHIFT BUT DID TRY TO PULL AT HER WARREN TUBE A COUPLE OF TIMES. WILL DISCUSS W/ DAYSHIFT THE CONTINUING NEED FOR A FLOEY CATHETER.
[2023-08-04 07:16] VITALS: BP 133/81
--- NOTE | 2023-08-04 16:58 | NUR ---
Spiritual Care Visit. Pt. is sominlent for the first part of my visit. Spouse is present and welcomes my visit. A family friend is also present. Spouse is unsettled with a perceived lack of input and care from physicians. Listen with empathy and seek to normalize the Pt. experience. Through establishing a line of questions that steer our conversation into common interests, the Spouse displayed evidence of being more engaged and encouraged. Pt. began to "wake up" but displayed evidence of pleasant confusion. Nurses arrived to change a dressing on the Pt. Spouse verbalized gratitude for the spiritual care visit.
--- NOTE | 2023-08-04 18:41 | NUR ---
SHIFT SUMMARY: PT IS A 67 YEAR OLD FEMALE WHO WAS ADMITTED FOR UROSEPSIS. SHE HAS A HISTORY OF VASCULAR DEMENTIA. SHE IS ALERT AND ORIENTED TO SELF AND FAMILY. PLAN IS TO D/C TO A FACILITY, BUT N[employer]SE [employer] IS AWAITING STATUS FOR COVERAGE WITH MEDICARE. SHE IS AMBULATORY WITH STAFF, FWW, AND GAITBELT. HER WARREN CATHETER REMAINS IN PER DR. DOHERTY DUE TO HER URINARY RETENTION. SHE CONTINUES TO EAT AND DRINK WELL, IS INTERACTIVE WITH STAFF, ANSWERS MOST QUESTIONS APPROPRIATELY. SHE IS NOT IMPULSIVE OR TRIES TO GET UP OUT OF BED OR BEDSIDE CHAIR. AVASURE D/C'D TODAY. SHE IS IN BED, CALL LIGHT WITHIN REACH, NO SIGNS OR SYMPTOMS OF DISTRESS. PLAN OF CARE ONGOING.
[2023-08-04 20:21] VITALS: BP 112/58
[2023-08-05 03:03] VITALS: BP 144/71
--- NOTE | 2023-08-05 05:50 | NUR ---
SHIFT SUMMARY PT IS ALERT AND ORIENTED TO SELF. NORMOTENSIVE, HR 65, TMAX 99.0, O2 SATS >95% ON RA. C/O BECKHAM, MANAGED WITH PRN TYLENOL. TOLERATING FINGER FOODS, GOOD PO INTAKE. WARREN CATHETER DRAINING LARGE AMOUNTS OF CLEAR, LIGHT YELLOW URINE. INCONTINENT, FORMED BM X1 THIS SHIFT. BRIEF IN PLACE. SLEPT THROUGH THE NOC. BED IN LOWEST POSITION AND CALL LIGHT WITHIN REACH. BED ALARM SET FOR PT SAFETY AND FREQUENT ROUNDING DONE. FIRE SAFETY CHECKS COMPLETED.
--- NOTE | 2023-08-05 16:35 | NUR ---
Spiritual Care Visit Pt. is somnolent for much of the visit. Spouse is present and welcomes my visit. Spouse has a friend also present. Spouse is unsettled about the Pts. discharge options. Listen with empathy and a calming presence. Facilitae a lenghty life review and storytelling. Prayed with Pt. after she woke up. Pt. is pleasantly confused and does not recognize this cloth stretcher. Spouse verbalized gratitude for my regular spiritual care visits.
--- NOTE | 2023-08-05 18:46 | NUR ---
SHIFT SUMMARY: PT IS A&OX1. VSS, NO ACUTE EVENTS THIS SHIFT. PT HAS BEEN PLEASANT AND COOPERATIVE. MULTIPLE FAMILY MEMBERS HAVE VISITED THIS SHIFT. SHE IS TOLERATING PO INTAKE WELL, WARREN DRAINING TO GRAVITY. PT IS LYING IN BED WITH THE CALL LIGHT IN REACH. WCTM UNTIL REPORT IS GIVEN TO COMPUTER HARDWARE TECHNICIAN RN.
[2023-08-05 19:21] VITALS: BP 129/55
[2023-08-06 04:34] VITALS: BP 157/76
--- NOTE | 2023-08-06 06:02 | NUR ---
SHIFT SUMMARY PT A&O TO SELF, FAMILY AND PLACE. SHAWNA IS MUCH MORE CLEAR WITH HER SPEECH TONIGHT. NORMOTENSIVE, HR 68, AFEBRILE, O2 SATS 100% ON RA. C/O BECKHAM, MANAGED WITH PRN TYLENOL. TOLERATING FINGER FOODS. WARREN CATHETER DRAINING LARGE AMOUNTS OF CLEAR, LIGHT YELLOW URINE. NO BM THIS SHIFT. BRIEF IN PLACE. RESTLESS TONIGHT. BED IN LOWEST POSITION, CALL LIGHT WITHIN REACH. BED ALARM SET FOR PT'S SAFETY AND FREQUENT ROUNDING DONE. FIRE SAFETY CHECKS COMPLETED.
[2023-08-06 07:23] VITALS: BP 141/73
[2023-08-06 15:33] VITALS: BP 120/51
--- NOTE | 2023-08-06 18:35 | NUR ---
SHIFT SUMMARY: SUSIE IS A&OX1. VSS, NO ACUTE EVENTS THIS SHIFT. DISCUSSED BLOOD SUGAR CONTROL WITH PT AND FAMILY, ENCOURAGED FAMILY TO AVOID BRINGING PT OUTSIDE FOOD/DRINK WHICH MAY ELEVATED PT'S BLOOD SUGAR. PT IS A ONE-PERSON ASSIST WITH THE FWW AND GAIT BELT. PT HAS DIFFICULTY COORDINATING MOVEMENTS ON RIGHT SIDE AND UNABLE TO FOLLOW VERBAL CUES, NEEDS PHYSICAL CUES. PT HAD A SHOWER TODAY AND WAS UP TO THE CHAIR FOR LUNCH AND DINNER. WARREN IN PLACE, DRAINING TO GRAVITY. SHE IS SITTING UP IN THE RECLINER WITH THE CALL LIGHT IN REACH. WCTM UNTIL REPORT IS GIVEN TO PRACTICING MD ANESTHESIOLOGIST RN.
[2023-08-06 19:14] VITALS: BP 119/58
[2023-08-07 05:25] VITALS: BP 106/55
[2023-08-07 07:39] VITALS: BP 125/52
[2023-08-07] MEDS ORDERED: FAMO20 PO (08:13)
[2023-08-07] MEDS ORDERED: METO25ER PO (08:14)
[2023-08-07] MEDS ORDERED: LEVE500 PO (08:14)
[2023-08-07] MEDS ORDERED: ONDA4 PO (08:15)
[2023-08-07] MEDS ORDERED: VISBIOME 112.51 EACH PO (08:21)
[2023-08-07 15:19] VITALS: BP 134/56
--- NOTE | 2023-08-07 18:03 | NUR ---
SHIFT SUMMARY MS JUAN IS ORIENTATED TO SELF AND "HOSPITAL", NOT TO WHICH HOSPITAL OR DATE. CALM AND VERY PLEASANT CONVERSATION, FORGETFUL. WARREN CATHETER IN PLACE DRAINING LARGE UOP. INCONTINENT OF SOFT BROWN STOOL X2. DENIES PAIN TODAY. PLAN TO BE DISCHARGED TO [facility] AT 1230PM 08/08. SUPPORTIVE FAMILY VISITED TODAY. MS HALEY WALKED FROM HER BED TO HER CHAIR WITH 2 PERSON ASSISTANCE, VERBAL PROMPTS, WALKER AND GAIT BELT. WARREN CATHETER IN PLACE. BED LOW, CALL LIGHT IN REACH.
[2023-08-07 19:44] VITALS: BP 135/59
--- NOTE | 2023-08-08 03:44 | NUR ---
END OF SHIFT SUMMARY PT A&O x1, ORIENTATED TO SELF ONLY. PT SLEPT WELL THROUGHOUT THE NIGHT. WARREN CATH PATENT, DRAINING WELL, LARGE AMOUNT OF URINE OUTPUT RECORDED OVER NIGHT. CATH CARE WIPES USED. PT COMPLIANT WITH MEDICATION AND CARE PROVIDED. PT DENIED ANY CHEST PAIN/SOB/BECKHAM. RESP RATE EVEN AND UNLABORED. LUNG SOUNDS CTA. PT IS TO DISCHARGE TO [facility] TODAY 08/08/23 AT 12:30PM. BED IN LOWEST POSITION, CALL LIGHT WITHIN REACH, WCTM.
[2023-08-08 07:37] VITALS: BP 132/61
--- NOTE | 2023-08-08 11:32 | NUR ---
DISCHARGE NOTE MS JUAN IS PLEASANTLY CONFUSED, ORIENTATED TO HER NAME. DENIES PAIN. DISCUSSED WITH DR DOHERTY THIS MORNING AND PLAN TO DISCHARGE HOME WITH WARREN CATHETER IN PLACE. FAMILY EDUCATED ON HOW TO CHANGE FROM LEG BAG TO OVERNIGHT BAG AND HOW TO EMPTY WARREN CATHETER. DISCHARGED WITH LEG BAG IN PLACE. POWERGLIDE REMOVED INTACT PRIOR TO DISCHARGE. FAMILY VERBALISED UNDERSTANDING TO WRITTEN AND VERBAL DISCHARGE INSTRUCTIONS. MS JUAN WAS DRESSED AND LEFT [facility] VIA W/C ESCORT AT 1130HRS. NO FURTHER QUESTIONS OR CONCERNS FROM FAMILY OR PATIENT AT TIME OF DISCHARGE.
== END 2023-08-08 11:27 | disposition home or self-care (01) | DRG 871 ==
LOC: ER 12:34 → PCU 15:26 → MEDS 15:26 → PCU 16:39 → MEDS 07-28 15:06 → ENPENDDIS 08-08 09:55 → MEDS 08-08 11:27
PROVIDERS: Internal Medicine; Nurse Practitioner Acute Care; Student in an Organized Health Care Education/Training Program; ADMIT Family Medicine
DX: A41.51 Sepsis due to Escherichia coli [E. coli] (principal); G93.41 Metabolic encephalopathy; E87.20 Acidosis, unspecified; F01.518 Vascular dementia, unspecified severity, with other behavioral disturbance; I50.22 Chronic systolic (congestive) heart failure; N39.0 Urinary tract infection, site not specified; E87.0 Hyperosmolality and hypernatremia; I25.10 Atherosclerotic heart disease of native coronary artery without angina pectoris; Z66 Do not resuscitate; I11.0 Hypertensive heart disease with heart failure; R65.20 Severe sepsis without septic shock; G40.909 Epilepsy, unspecified, not intractable, without status epilepticus; Z88.1 Allergy status to other antibiotic agents; Z88.0 Allergy status to penicillin; Z88.8 Allergy status to other drugs, medicaments and biological substances; Z79.4 Long term (current) use of insulin; Z79.02 Long term (current) use of antithrombotics/antiplatelets; I25.2 Old myocardial infarction; Z86.73 Personal history of transient ischemic attack (TIA), and cerebral infarction without residual deficits; Z79.899 Other long term (current) drug therapy; Z87.891 Personal history of nicotine dependence; Z11.52 Encounter for screening for COVID-19
CPT/HCPCS: 0241U; 36415; 51701; 70450; 71045; 80048; 80053; 80069; 80202; 81001; 82140; 82803; 82947; 83605; 83735; 84100; 84145; 84146; 85025; 87040; 87077; 87086; 87186; 92526; 92610; 93005; 93010; 96361-59; 96365-59; 96375-59; 97110; 97110-CQ; 97116; 97116-CQ; 97162; 97530; 97530-CQ; 99285-25; A9270; J0360; J0692; J0696; J1650; J1790; J1815; J1953; J2060; J3370; J3480; J7030; J7042; J7050; J7070

== ENCOUNTER 2023-08-10 02:54 | Emergency (ER) | payer MEDICARE, OTHER ==
[~2023-08-10] VITALS: Ht 167.6 cm; Wt 65.8 kg
[~2023-08-10 02:54] MED LIST changes: +ASPI81CH PO; +FAMO20 PO; +LEVE500 PO; +ONDA4 PO; +TOPI50 PO; +VISBIOME 112.51 EACH PO
[2023-08-10 07:15] VITALS: BP 135/59
== END 2023-08-10 07:25 | disposition home or self-care (01) ==
LOC: ER 02:54
DX: S09.90XA Unspecified injury of head, initial encounter (principal); M54.50 Low back pain, unspecified; W06.XXXA Fall from bed, initial encounter; E11.9 Type 2 diabetes mellitus without complications; I10 Essential (primary) hypertension; I25.2 Old myocardial infarction; I25.10 Atherosclerotic heart disease of native coronary artery without angina pectoris; F01.50 Vascular dementia, unspecified severity, without behavioral disturbance, psychotic disturbance, mood disturbance, and anxiety; Z87.891 Personal history of nicotine dependence
CPT/HCPCS: 70450; 93005; 93010; 99284-25

== ENCOUNTER 2023-08-20 00:03 | Emergency (ER) | payer MEDICARE, OTHER ==
[~2023-08-20] VITALS: Ht 170.2 cm; Wt 56.2 kg
[2023-08-20 04:45] VITALS: BP 146/71
[2023-08-20] MEDS ORDERED: AZIT250 PO (04:46)
== END 2023-08-20 05:13 | disposition home or self-care (01) ==
LOC: ER 00:03
DX: S70.12XA Contusion of left thigh, initial encounter (principal); J18.9 Pneumonia, unspecified organism; W06.XXXA Fall from bed, initial encounter; Z88.0 Allergy status to penicillin; Z88.8 Allergy status to other drugs, medicaments and biological substances; Z88.1 Allergy status to other antibiotic agents; Z79.899 Other long term (current) drug therapy; Z79.4 Long term (current) use of insulin; Z79.82 Long term (current) use of aspirin; E11.9 Type 2 diabetes mellitus without complications; I10 Essential (primary) hypertension; I25.2 Old myocardial infarction; I25.10 Atherosclerotic heart disease of native coronary artery without angina pectoris; Z87.891 Personal history of nicotine dependence
CPT/HCPCS: 70450; 71046; 72125; 72170; 73552; 99284-25; A9270

== ENCOUNTER 2023-08-24 09:07 | Emergency (ER) | payer MEDICARE, OTHER ==
[~2023-08-24] VITALS: Ht 162.6 cm; Wt 61.2 kg
[~2023-08-24 09:07] MED LIST changes: +AZIT250 PO
[2023-08-24] MEDS ORDERED: CODACE30 PO (10:12)
[2023-08-24 11:57] VITALS: BP 132/77
== END 2023-08-24 12:07 | disposition home or self-care (01) ==
LOC: ER 09:07
DX: R07.89 Other chest pain (principal); I10 Essential (primary) hypertension; I25.10 Atherosclerotic heart disease of native coronary artery without angina pectoris; E11.9 Type 2 diabetes mellitus without complications; I25.2 Old myocardial infarction; F01.50 Vascular dementia, unspecified severity, without behavioral disturbance, psychotic disturbance, mood disturbance, and anxiety; Z87.891 Personal history of nicotine dependence; Z79.4 Long term (current) use of insulin; Z79.02 Long term (current) use of antithrombotics/antiplatelets; Z79.82 Long term (current) use of aspirin; Z79.899 Other long term (current) drug therapy; Z88.0 Allergy status to penicillin; Z88.8 Allergy status to other drugs, medicaments and biological substances; W06.XXXA Fall from bed, initial encounter; Y92.129 Unspecified place in nursing home as the place of occurrence of the external cause
CPT/HCPCS: 99283; A9270

== ENCOUNTER 2023-09-01 12:40 | Inpatient (IN) | payer MEDICARE, OTHER ==
[~2023-09-01] VITALS: Ht 162.6 cm; Wt 61.6 kg
[2023-09-01] VITALS (8 sets, daily range): BP systolic 85–98; BP diastolic 47–56
[~2023-09-01 12:40] MED LIST changes: +CODACE30 PO
[2023-09-01 13:48] LABS: Albumin, Blood 2.5 g/dL (3.4-5.0); Albumin/Globulin Ratio 0.5 (0.8-1.8); Bilirubin, Total 0.6 mg/dL (0.1-1.0); Bun/Creatinine Ratio 27.3 (12.0-20.0); Calcium, Blood 9.5 mg/dL (8.5-10.1); Creatinine, Blood 1.28 mg/dL (0.40-1.00); Globulin, Blood 5.1 g/dL (2.2-4.0); Potassium, Blood 4.7 mmol/L (3.5-5.5); Total Protein, Blood 7.6 g/dL (6.4-8.2)
--- NOTE | 2023-09-01 14:00 | NUR ---
Spiritual Care Support. Pt. is waiting intake in the ED. Pt. displays evidence of being pleasantly confused. Pts. daughter is present. Facilitate a conversation regarding the Pts. progress since her last hospitalization. Listen with empathy and a calming presence. Seek to normalize the Pt. experience. Pt. then was being escorted into ED. Pt. smiled, and daughter verbalized gratitude for the spiritual care visit. Will remain available to Pt. and family.
[2023-09-01 15:03] LABS: BASOPHILS ABSOLUTE AUTO 0.06 K/mm3 (0.00-0.23); BASOPHILS PERCENT AUTO 0 % (0-2); EOSINOPHILS ABSOLUTE AUTO 0.01 K/mm3 (0.00-0.68); EOSINOPHILS PERCENT AUTO 0 % (0-6); Hematocrit 37.8 % (33.0-51.0); Hemoglobin 13.2 g/dL (11.5-16.0); IMMATURE GRAN ABSOLUTE AUTO 0.31 K/mm3 (0.00-0.10); IMMATURE GRAN PERCENT AUTO 1 % (0-1); LYMPHOCYTES ABSOLUTE AUTO 0.84 K/mm3 (0.84-5.20); LYMPHOCYTES PERCENT AUTO 4 % (21-46); MONOCYTES ABSOLUTE AUTO 1.36 K/mm3 (0.16-1.47); MONOCYTES PERCENT AUTO 6 % (4-13); Mean Corpuscular HGB 28.9 pg (26.0-34.0); Mean Corpuscular HGB Conc 34.9 g/dL (31.5-36.5); Mean Corpuscular Volume 83 fL (80-100); NEUTROPHILS ABSOLUTE AUTO 19.88 K/mm3 (1.96-9.15); NEUTROPHILS PERCENT AUTO 89 % (41-73); RDW Coefficient Variation 12.2 % (11.7-14.2); RDW Standard Deviation 37.2 fL (35.1-46.3); Red Blood Cell Count 4.56 M/mm3 (3.80-5.20); White Blood Cell Count 22.46 K/mm3 (4.00-11.30)
[2023-09-01 17:07] LABS: Source, Urine Clean Catch
[2023-09-01 17:20] LABS: Appearance, Urine Hazy (Clear); Bilirubin, Urine Neg (Neg); Blood, Urine 4+ (Neg); Color, Urine Yellow (P-Yellow); Glucose Qualitative, Urine 2+ (Neg); Ketones, Urine Neg (Neg); Leukocyte Esterase, Urine 3+ (Neg); Nitrite, Urine Neg (Neg); Protein, Urine 3+ (Neg); Specific Gravity, Urine 1.015 (1.003-1.022); Urobilinogen, Urine NORM (Normal)
[2023-09-01 17:28] LABS: Bacteria Many /hpf; Hyaline Casts 0-2 /lpf (0-2); Red Blood Cells, Urine 0-2 /hpf (0-2); Renal Epithelial Rare /hpf (0-Rare); Squamous Epithelial Cells Rare /hpf (Few); White Blood Cells, Urine 50-100 /hpf (0-5)
[2023-09-01 21:37] LABS: Influenza A, PCR NEGATIVE (NEGATIVE); Influenza B, PCR NEGATIVE (NEGATIVE); Resp Syncytial Virus, PCR NEGATIVE (NEGATIVE); SARS-Cov-2 (COVID-19) PCR, MMC NEGATIVE (NEGATIVE)
[2023-09-02] VITALS (40 sets, daily range): BP systolic 102–160; BP diastolic 49–119
--- NOTE | 2023-09-02 00:41 | NUR ---
PT ARRIVED ON UNIT AT 2049. LETHARGIC, DIFFICULT TO AROUSE AND ONLY WAKES BRIEFLY WHEN PROMPTED. DOES NOT ANSWER QUESTIONS OR FOLLOW COMMANDS BUT DOES RESPOND TO PAIN/PRESSURE. ADMISSION PROCESS COMPLETED WITH ASSISTANCE FROM PT DAUGHTER AND AT BEDSIDE. PRESSURE ULCER ON COCCYX, MEPILEX APPLIED. PHOTO TAKEN AND IN CHART. SATTING WELL ON ROOM AIR THUS FAR. BP HAS BEEN SOFT BUT IS MAINTAINING MAP >60 WITH PT IN [place]. TEMP REACHED HIGH >105 IN ED BUT HAS REMAINED <99 SINCE ARRIVAL ON UNIT. ADA DIET, CBG Q 6. REPOSITIONED Q2 THUS FAR. BED LOCKED IN LOWEST POSITION. CONTINUING TO MONITOR.
--- NOTE | 2023-09-02 02:29 | NUR ---
PT RECENTLY WOKE UP AND IS MORE ALERT NOW, ABLE TO TALK BACK AND FORTH WITH STAFF ALTHOUGH APPEARS VERY CONFUSED. ABLE TO ANSWER QUESTIONS RELATED TO COMFORT AND NEEDS APPROPRIATELY BUT IS NOT ABLE TO TELL ME HER NAME OR ANYTHING ELSE ABOUT HERSELF OR HER SITUATION. REPEATEDLY ASKS WHERE SHE IS DESPITE BEING INFORMED MULTIPLE TIMES. PT REQUESTED WATER. WAS GOING TO PERFORM BEDSIDE SWALLOW EVAL BUT PT DID NOT TOLERATE BEING SAT UPRIGHT FOR FLUIDS AND OPTED TO CONTINUE LYING DOWN INSTEAD. ALLOWING PT TO ATTEMPT TO GO BACK TO SLEEP NOW. BED LOCKED IN LOWEST POSITION. BED ALARM ACTIVE. CONTINUING TO MONITOR.
[2023-09-02 05:07] LABS: Bun/Creatinine Ratio 33.5 (12.0-20.0); Calcium, Blood 8.9 mg/dL (8.5-10.1); Creatinine, Blood 0.99 mg/dL (0.40-1.00); Potassium, Blood 4.6 mmol/L (3.5-5.5)
--- NOTE | 2023-09-02 05:22 | NUR ---
SHIFT SUMMARY. PT BECAME MORE ALERT EARLY THIS MORNING, SEE RELATED NOTE FOR DETAILS. PT HAS REMAINED SOMEWHAT ALERT THROUGHOUT REMAINDER OF SHIFT THUS FAR AND CONTINUES TO BE VERY CONFUSED, NOT FOLLOW DIRECTIONS, ANSWER ALL QUESTIONS APPROPRIATELY, ETC. IS ABLE TO MAKE NEEDS KNOWN. AT ABOUT 0400, PT TEMPERATURE STARTED TO ESCALATE ONCE AGAIN AND IS NOW AT 102.5 VIA RECTAL PROBE. CALLED RESIDENT DR. PADILLA TO NOTIFY WHO ORDERED 650 MG ACETAMINOPHEN SUPPOSITORY Q6 PRN FOR MANAGEMENT. ADMINISTERED TYLENOL AND PLACED ICE PACKS X5 WELL COOLING PAD IN EFFORT TO DECREASE TEMP. THUS FAR HAS BEEN INEFFECTIVE BUT CONTINUING TO MONITOR. PT HAS THUS FAR NOT BEEN ABLE TO COMPLETE BEDSIDE SWALLOW EVAL, WILL NOTIFY DAY SHIFT OF NEED TO COMPLETE BEFORE PO FOOD/FLUID/MEDICATION ADMINISTRATION. AT TIME OF ESCALATING TEMPERATURE, PT OXYGEN DEMAND HAS ALSO INCREASED. NOW SATTING WELL ON 5 L O2 VIA NC. PT TOLERATING WELL. WARREN REMAINS IN PLACE AND FUNCTIONING WELL. BED LOCKED IN LOWEST POSITION. CONTINUING TO MONITOR.
[2023-09-02 06:36] LABS: BASOPHILS ABSOLUTE AUTO 0.06 K/mm3 (0.00-0.23); BASOPHILS PERCENT AUTO 0 % (0-2); EOSINOPHILS ABSOLUTE AUTO 0.02 K/mm3 (0.00-0.68); EOSINOPHILS PERCENT AUTO 0 % (0-6); Hematocrit 37.8 % (33.0-51.0); Hemoglobin 12.1 g/dL (11.5-16.0); IMMATURE GRAN ABSOLUTE AUTO 0.16 K/mm3 (0.00-0.10); IMMATURE GRAN PERCENT AUTO 1 % (0-1); LYMPHOCYTES ABSOLUTE AUTO 0.75 K/mm3 (0.84-5.20); LYMPHOCYTES PERCENT AUTO 4 % (21-46); MONOCYTES ABSOLUTE AUTO 1.02 K/mm3 (0.16-1.47); MONOCYTES PERCENT AUTO 6 % (4-13); Mean Corpuscular HGB 28.5 pg (26.0-34.0); Mean Platelet Volume 10.4 fL (9.1-12.4); NEUTROPHILS ABSOLUTE AUTO 15.34 K/mm3 (1.96-9.15); NEUTROPHILS PERCENT AUTO 89 % (41-73); Platelet Count 181 K/mm3 (150-400); RDW Coefficient Variation 12.6 % (11.7-14.2); RDW Standard Deviation 40.9 fL (35.1-46.3); Red Blood Cell Count 4.25 M/mm3 (3.80-5.20); White Blood Cell Count 17.35 K/mm3 (4.00-11.30)
[2023-09-02 06:58] LABS: Mean Corpuscular Volume 89 fL (80-100)
--- NOTE | 2023-09-02 10:11 | NUR ---
AM NOTE: UPON SHIFT START PATIENT SLEEPING WITH AUDIBLE SNORE. PATIENT WAKES TO VOICE AND TOUCH, BUT FALLS BACK ASLEEP QUICKLY. MUCH MORE ALERT WITH TURNING AND CARES. PERRLA. ABLE TO FOLLOW SIMPLE COMMANDS OF STICKING TONGUE OUT, SMILING, LIFTING EYEBROWNS AND COPYING WORDS. NO FACIAL DROOP NOTED. SPEECH MUMBLED AT TIMES PATIENT CONFUSED AND NOT ABLE TO ANSWER ANY ORIENTED QUESTIONS STATES "I DON'T KNOW" WHEN ASKED NAME AND . RIGHT SIDED WEAKNESS NOTED WITH BILATERAL SALES ENGINEER ACCOUNT MANAGER STRENGTH AND AT TIMES RIGHT HAND CONTRACTED. ON ROOM AIR -3L 02 NASAL CANNULA SATING MID 90'S. POOR PERFUSION READING OF SPO2 ON HANDS AND FEET. CURRENT SPO2 READING ON EAR. EVEN AND UNLABORED RESPIRATIONS. CLEAR UPPER LOBES AND COARSE LOWER LOBES. SUCTION AT BEDSIDE. PATIENT ABLE TO CLEAR THROAT BUT COUGHING AT TIMES WHEN ASKED TO SWALLOW, SPEECH EVAL ORDERED THIS AM. TELE SHOWING SR/ST WITH BIGEM, BBB, PAC'S AND PROLONGED QTC READING 0.5. CONCERNS FOR ST CHANGES THIS AM, EKG COMPLETED AND IN PAPER CHART. DR. FUENTES AWARE OF EKG AND TELE READING. TROPONIN ORDERED. PATIENT DOES NOT APPEAR TO BE IN ANY CARDIAC DISTRESS. BP STABLE. PPP. NO EDEMA NOTED. NS INFUSING PER EMAR. BOWEL TONES PRESENT. ATTENDS IN PLACE. CHRONIC WARREN CHANGED IN ED DRAINING TO GRAVITY. CATH CARE COMPLETED THIS AM. URINE CLEAR/YELLOW. TEMP AT THIS TIME 98.5. PATIENT SLEEPING IN BED, BED ALARM IN PLACE. CALL LIGHT IN REACH.
--- NOTE | 2023-09-02 10:18 | NUR ---
FAMILY UPDATE: THIS RN PLACED CALL TO SPOUSE COREEN THIS AM, NO ANSWER MESSAGE LEFT. THIS RN ALSO CALLED DAUGHTER HERNANDEZ THIS AM AND WAS ABLE TO PROVIDE UPDATE. DAUGHTER STATES PATIENT HAD STROKE 9-10 YEARS AGO AND EVER SINCE HER RIGHT SIDED HAS BEEN WEAKER. SHE STATES SHE NORMALLY SHUFFLED AT BASELINE AND HER RIGHT ARM/HAND AT TIMES WOULD BE STIFF. SHE ALSO STATES SINCE HER LAST ADMISSION EARLY SHE HAS BEEN LIVING AT [facility]. HER WARREN WAS PLACED LAST HOSPITILIZATION PER DAUGHTER AND THEY WERE UNABLE TO REMOVE DUE TO RETENTION. AT BASELINE PT IS ABLE TO HOLD CONVERSATION BUT IS CONFUSED MORE AND MORE THROUGHOUT THE AFTERNOON. IT DEPENDS ON THE DAY WHETHER OR NOT SHE NEEDS SBA OR 1 PERSON ASSIST WITH WALKER. DAUGHTER DENIES PT HAVING ANY ISSUES SWALLOWING OR TAKING PILLS AT BASELINE. SHE STATES THE PRESSURE ULCER WAS FOUND RECENTLY BY FACILITY.
--- NOTE | 2023-09-02 12:08 | NUR ---
Spiritual Care Visit. Pt. is somnolent and resting on and off during my visit. Daughter of Pt. is at bedside and the focus of my visit is with her. Considered matters of pamela and belief as well as the long slow grief journey the family has been on for many years as they watch the Pts. health decline. Daughter displays evidence of emotion, and acknoweledges her anticipatory grief. Daughter verbalized gratitude for the spiritual care visit and welcome this barrel washer machine to return.
--- NOTE | 2023-09-02 12:27 | NUR ---
DAUGHTER AT BEDSIDE. DR. FUENTES IN TO SEE PATIENT, THIS RN AT BEDSIDE FOR PROVIDER VISIT. CODE STATUS DISCUSSED AND PATIENT MADE DNR, DNR BAND IN PLACE. DAUGHTER STATES POLST FORM WAS STARTED BUT NEVER COMPLETED LAST HOSPITAL STAY, PALLIATIVE CARE CALLED TO ASSIST IN NEW POLST FORM. THIS RN DISCUSSED WITH DR. FUENTES POSITIVE BLOOD CULTURES, INPATIENT WOUND CONSULT, AM TROPONIN LAB, AND SPEECH EVAL. ORDERS FOR THIS RN TO PLACE INCLUDED INPATIENT WOUND CONSULT. ORDERS IN PLACE. PLAN FOR SPEECH EVAL THIS AFTERNOON. PATIENT CONTINUES TO HAVE EXPRESSIVE APHASIA, WAKES TO VOICE, VERY SMILEY. VITALS REMAINS STABLE. Q4 ORAL, Q2 TURNING AND Q6 BLOOD SUGARS.
--- NOTE | 2023-09-02 13:33 | NUR ---
TEMP TRENDING UP, CURRENTLY 100.2, FL TYLENOL GIVEN. PATIENT LAYING IN BED WITH SHEET AND FAN. DAUGHTER REMAINS AT BEDSIDE. PALLIATIVE CARE RN TAYLOR IN TO DISCUSS POLST FORM.
--- NOTE | 2023-09-02 13:55 | NUR ---
Spoke with Primary RN Ana and discussed case. Family reports Pt is a DNR and may benefit from completing POLST. Pt resting in bed with her eyes closed. Pt remains with her eyes closed throughout visit. Pt's daughter Brookings at bedside. Daughter Brookings confirms wishes to complete POLST. Assisted with completing POLST. Pt's wishes on POLST are DNR and Limited Treatment. Engaged in therapeutic conversation regarding advanced care planning. Educated on disease process including trajectory. Discussed the importance of planning for the future and having routine conversations with PCP. Daughter expresses appreciation and reports no new concerns at this time. Plan: Obtain copy of POLST upon physician signature and deliver to copy to medical records. Palliative Care will remain available
--- NOTE | 2023-09-02 17:33 | NUR ---
SPOKE WITH DR. FUENTES. ORDERS FOR PO TYLENOL AND TO DC FLUIDS. PATIENT EATING DINNER AT THIS TIME WITH ASSISTANCE FROM . TEMP TRENDING DOWN. IV ABX INFUSING. VITAL SIGNS STABLE. SEE PREVIOUS NOTES FOR FURTHER UPDATES. POLST IN ROOM FOR PROVIDER TO SIGN.
--- NOTE | 2023-09-02 21:24 | NUR ---
SPOKE WITH LEBRON OBREGON AT [facility], WHERE PT HAS BEEN STAYING RECENTLY. PROVIDED UPDATE ON PT CONDITION. LEBRON REPORTED THAT PT TYPICALLY IS ABLE TO GET AROUND WITH MINIMAL ASSISTANCE ON HER OWN, OCCASIONALLY OPTING TO USE WHEELCHAIR WHEN SHE IS FEELING WEAK. ALSO NOTED THAT WHEN WARREN IS NOT PRESENT PT IS ABLE TO TELL STAFF WHEN SHE IS FEELING URGE TO VOID OR NOTES SHORTLY AFTER THAT SHE HAD AN INCONTINENT VOID. THANKED LEBRON FOR HER TIME AND ENCOURAGED HER TO CALL BACK WITH ANY FURTHER QUESTIONS OR CONCERNS.
--- NOTE | 2023-09-02 22:21 | NUR ---
PT TEMPERATURE ESCALATING OVER COURSE OF ABOUT PAST 1.5 HOURS OR SO. PO TYLENOL ADMINISTERED, ICE PACKS AND COOL PAD APPLIED. TEMPERATURE NOW SLOWLY TRENDING DOWN. DISCUSSION WITH DIVER PUMPER HIMA. PT HAS BEEN HAVING SOME ST ELEVATION ACTIVITY OVER THIS PERIOD OF TIME. PER DAY SHIFT REPORT, PT WAS HAVING ST ELEVATION ON TELE THIS MORNING AND EKG WAS PERFORMED. EKG REFLECTED MILD ST ELEVATION AND DR. FUENTES WAS MADE AWARE. UNCONCERNED ABOUT THIS AT THAT TIME PER REPORT. LIKELY PT DRAMATIC SHAKING COINCIDING WITH ELEVATED TEMP IS CONTRIBUTING TO TELE PICKING UP MORE ST ELEVATION. DISCUSSED WITH ELISOE MEDINA, SHOULD WAIT FOR TEMP TO DECREASE FURTHER AND PT SHAKES TO DIMINISH TO SEE IF TELE CONTINUES TO DEMONSTRATE THIS ACTIVITIY. CONTINUING TO MONITOR.
[2023-09-03 04:21] VITALS: BP 147/72
--- NOTE | 2023-09-03 04:47 | NUR ---
SHIFT SUMMARY. PT HAS BEEN DOING WELL FOR LATTER HALF OF SHIFT. FIRST HALF OF SHIFT PT HAD ESCALATING FEVER THAT PEAKED AT >102. PO TYLENOL ADMINISTERED AND ICE PACKS WERE APPLIED. AFTER SOME TIME PT FEVER STARTED TO DECREASE AND HAS BEEN <99 FOR SEVERAL HOURS NOW. PT IS APPARENTLY VERY SENSITIVE TO TEMPERATURE CHANGES SHE WAS SHAKING, VERY UNCOMFORTABLE, UNABLE TO REST WELL. NOW SNORING COMFORTABLY IN BED WITH NO SIGNS OF UNEASE. DURING PERIOD OF INCREASING TEMPERATURE, PT WAS SHOWING SEVERAL ST ALARMS ON TELE PER ESCROW ASSISTANT. SEE RELATED NOTE FOR EXPANDED DETAILS. SINCE TEMPERATURE HAS BEEN <99, RYTHYM APPEARS UNCHANGED FROM EKG THAT WAS PERFORMED YESTERDAY. PT HAS BEEN SATTING WELL ON ROOM AIR THROUGH MOST OF SHIFT, SPORADICALLY REQUIRED 1-2 L O2 VIA NC WHILE RUNNING TEMPERATURE BUT WOULD NOT COMPLETELY TOLERATE CONSISTENTLY. REPOSITIONED Q2. WARREN CATHETER REMAINS IN PLACE AND FUNCTIONING WELL. MINIMAL URINE OUTPUT THIS SHIFT, ALL DOCUMENTED APPROPRIATELY. WILL PERFORM BLADDER SCAN BEFORE SHIFT CHANGE TO ENSURE NO RETENTION. BED LOCKED IN LOWEST POSITION. CONTINUING TO MONITOR.
[2023-09-03 08:12] VITALS: BP 147/92
[2023-09-03 12:08] VITALS: BP 135/69
[2023-09-03 13:27] LABS: BASOPHILS ABSOLUTE AUTO 0.04 K/mm3 (0.00-0.23); BASOPHILS PERCENT AUTO 0 % (0-2); EOSINOPHILS ABSOLUTE AUTO 0.08 K/mm3 (0.00-0.68); EOSINOPHILS PERCENT AUTO 0 % (0-6); Hematocrit 32.1 % (33.0-51.0); Hemoglobin 10.7 g/dL (11.5-16.0); IMMATURE GRAN ABSOLUTE AUTO 0.28 K/mm3 (0.00-0.10); IMMATURE GRAN PERCENT AUTO 1 % (0-1); LYMPHOCYTES ABSOLUTE AUTO 0.81 K/mm3 (0.84-5.20); LYMPHOCYTES PERCENT AUTO 4 % (21-46); MONOCYTES PERCENT AUTO 5 % (4-13); Mean Corpuscular HGB 28.4 pg (26.0-34.0); Mean Corpuscular HGB Conc 33.3 g/dL (31.5-36.5); Mean Corpuscular Volume 85 fL (80-100); Mean Platelet Volume 10.4 fL (9.1-12.4); NEUTROPHILS ABSOLUTE AUTO 18.71 K/mm3 (1.96-9.15); NEUTROPHILS PERCENT AUTO 89 % (41-73); Platelet Count 236 K/mm3 (150-400); RDW Standard Deviation 40.2 fL (35.1-46.3); Red Blood Cell Count 3.77 M/mm3 (3.80-5.20); White Blood Cell Count 21.02 K/mm3 (4.00-11.30)
[2023-09-03 13:50] LABS: Albumin, Blood 1.8 g/dL (3.4-5.0); Albumin/Globulin Ratio 0.4 (0.8-1.8); Bilirubin, Total 0.2 mg/dL (0.1-1.0); Bun/Creatinine Ratio 34.8 (12.0-20.0); Calcium, Blood 8.8 mg/dL (8.5-10.1); Creatinine, Blood 0.8 mg/dL (0.40-1.00); Globulin, Blood 4.7 g/dL (2.2-4.0); Potassium, Blood 3.8 mmol/L (3.5-5.5); Total Protein, Blood 6.5 g/dL (6.4-8.2)
[2023-09-03 16:02] VITALS: BP 145/77
--- NOTE | 2023-09-03 16:45 | NUR ---
Spiritual Care Family Support Met with Pts. daughter [place] on a hallway bench. Daughter is unsettled by some family dynamics as well as upcoming decision about the Pts. care. Listen with empathy and calming presence. Facilitate discussions regarding the family system and pastoral care is given. Daughter displays appropriate emotion at times. Provide anticipatory grief behavioral school counselors. Daughter displays evidence of de-escalated emotions and verbalizes gratitude for the spiritual care visit.
--- NOTE | 2023-09-03 17:19 | NUR ---
SHIFT SUMMARY PT A/O X2 AND HAS DEMENTIA AT BASELINE. SHE IS VERY SLEEPY DURING THE DAY BUT WAKES UP WHEN STIMULATED. TEMPERATURES HAVE BEEN IN THE 99'S FOR THE MAJORITY OF THE SHIFT. WARREN IN PLACE AND DRAINING TO GRAVITY. COOLING BLANKET AND ICE PACKS IN PLACE WELL THIS SHIFT. FAMILY AT BEDSIDE. VSS.
[2023-09-03 19:40] VITALS: BP 155/90
[2023-09-03 23:48] VITALS: BP 126/66
[2023-09-04 03:53] VITALS: BP 146/80
[2023-09-04 04:58] LABS: BASOPHILS ABSOLUTE AUTO 0.06 K/mm3 (0.00-0.23); BASOPHILS PERCENT AUTO 0 % (0-2); EOSINOPHILS ABSOLUTE AUTO 0.22 K/mm3 (0.00-0.68); EOSINOPHILS PERCENT AUTO 1 % (0-6); Hematocrit 32.5 % (33.0-51.0); Hemoglobin 10.6 g/dL (11.5-16.0); IMMATURE GRAN ABSOLUTE AUTO 0.31 K/mm3 (0.00-0.10); IMMATURE GRAN PERCENT AUTO 2 % (0-1); LYMPHOCYTES ABSOLUTE AUTO 1.25 K/mm3 (0.84-5.20); LYMPHOCYTES PERCENT AUTO 7 % (21-46); MONOCYTES ABSOLUTE AUTO 1.04 K/mm3 (0.16-1.47); MONOCYTES PERCENT AUTO 6 % (4-13); Mean Corpuscular HGB Conc 32.6 g/dL (31.5-36.5); Mean Corpuscular Volume 86 fL (80-100); Mean Platelet Volume 11.1 fL (9.1-12.4); NEUTROPHILS ABSOLUTE AUTO 13.93 K/mm3 (1.96-9.15); NEUTROPHILS PERCENT AUTO 83 % (41-73); Platelet Count 235 K/mm3 (150-400); RDW Coefficient Variation 13.1 % (11.7-14.2); RDW Standard Deviation 40.9 fL (35.1-46.3); Red Blood Cell Count 3.79 M/mm3 (3.80-5.20); White Blood Cell Count 16.81 K/mm3 (4.00-11.30)
--- NOTE | 2023-09-04 05:07 | NUR ---
SHIFT SUMMARY. SHIFT HAS GONE WELL THUS FAR COMPARED TO PREVIOUS SHIFTS WITH THIS NURSE. PT HAD ELEVATED TEMP VERY EARLY IN SHIFT. ADMINISTERED PO IBUPROFEN AND WITH TIME TEMPERATURE DECREASED WITHOUT USE OF COOLING PAD, ICE PACKS, OTHER MEASURES. PT HAS BEEN SATTING WELL ON ROOM AIR THROUGHOUT SHIFT. TELE ON WITH NO EVENTS THUS FAR. WARREN STILL FUNCTIONING WELL. PT HAS BEEN LETHARGIC THROUGHOUT MOST OF SHIFT BUT RECENTLY AWOKE MORE ALERT AND ASKING TO SPEAK TO "REAL PEOPLE". WHEN DISCUSSING FURTHER PT DEMONSTRATED CLEAR EXPRESSIVE APHASIA BUT WAS ABLE TO SAY "YES" WHEN ASKED IF SHE WANTS TO SPEAK WITH HER . ASSURED HER THAT HER WILL LIKELY BE HERE IN THE MORNING WHICH ALLOWED HER TO RELAX A BIT. Q2 TURNS. COMFORTABLE AT REST, DISCOMFORT WITH REPOSITIONING. FLUIDS RUNNING THROUGHOUT SHIFT WITHOUT DIFFICULTY. BED LOCKED IN LOWEST POSITION. CONTINUING TO MONITOR.
[2023-09-04 06:00] LABS: Albumin, Blood 1.7 g/dL (3.4-5.0); Albumin/Globulin Ratio 0.4 (0.8-1.8); Bilirubin, Total 0.3 mg/dL (0.1-1.0); Bun/Creatinine Ratio 34.7 (12.0-20.0); Calcium, Blood 8.7 mg/dL (8.5-10.1); Creatinine, Blood 0.69 mg/dL (0.40-1.00); Globulin, Blood 4.7 g/dL (2.2-4.0); Potassium, Blood 3.7 mmol/L (3.5-5.5); Total Protein, Blood 6.4 g/dL (6.4-8.2)
[2023-09-04 07:59] VITALS: BP 171/97
[2023-09-04 09:02] LABS: KEPPRA (LEVETIRACETAM) 33 ug/mL (10-40)
--- NOTE | 2023-09-04 10:05 | NUR ---
care assumption this rn assumed care at 0700. blood pressure hypertensive and this rn informed md barnes made aware and fluids discontinued. patient is alert and pleasantly confused. patient this morning stating "bren, ashanti, and liberty". this rn asked if those are family members and patient just repeated the names. this rn does know that these are family names. perrla. patient does not appear in pain. patient will cry out with movement at times, but not always. patient does not appear to be in respiratory or cardiac distress. patient has a pressure sore to coccyx, bruising to right hip, and an iv site that inflatrated to right forearm had has some swelling in the arm. patient lung sounds clear and on room air. tele sinustach 100s. cap refill <3seconds. see shift assessment for further detials. jin cath in place draining with gravity. patient had a bed bath and linen change. plan of care is up to date at this time. patient unable to work with therapies due to not following commands.
[2023-09-04 10:49] VITALS: BP 123/82
--- NOTE | 2023-09-04 11:35 | NUR ---
IN TO SEE PATIENT md barnes in to see patient. patient made medical status with no tele.
--- NOTE | 2023-09-04 12:02 | NUR ---
TRANSFER OF CARE this rn gave report to sylvie zapien rn. no acute changes since pervious note. plan of care is up to date. vitals remain stable.
[2023-09-04 15:44] VITALS: BP 139/96
--- NOTE | 2023-09-04 18:20 | NUR ---
END OF SHIFT PT MEDICAL STATUS. ALERT. ORIENTATION UNABLE TO ASSESS PT DOES NOT ANSWER Qs BUT SMILES & PLEASANTLY BABBLES INSTEAD. PT VSS. SPO2 > 92% ON RA. CHRONIC WARERN CATH PATENT & DRAINING. FAMILY AT BEDSIDE.
[2023-09-04 22:24] VITALS: BP 148/84
[2023-09-05 05:01] VITALS: BP 140/71
[2023-09-05 05:19] LABS: BASOPHILS ABSOLUTE AUTO 0.04 K/mm3 (0.00-0.23); BASOPHILS PERCENT AUTO 0 % (0-2); EOSINOPHILS ABSOLUTE AUTO 0.14 K/mm3 (0.00-0.68); EOSINOPHILS PERCENT AUTO 1 % (0-6); Hematocrit 27.7 % (33.0-51.0); Hemoglobin 9.3 g/dL (11.5-16.0); IMMATURE GRAN ABSOLUTE AUTO 0.18 K/mm3 (0.00-0.10); IMMATURE GRAN PERCENT AUTO 2 % (0-1); LYMPHOCYTES ABSOLUTE AUTO 0.95 K/mm3 (0.84-5.20); LYMPHOCYTES PERCENT AUTO 9 % (21-46); MONOCYTES ABSOLUTE AUTO 0.83 K/mm3 (0.16-1.47); MONOCYTES PERCENT AUTO 7 % (4-13); Mean Corpuscular HGB 28.3 pg (26.0-34.0); Mean Corpuscular HGB Conc 33.6 g/dL (31.5-36.5); Mean Corpuscular Volume 84 fL (80-100); Mean Platelet Volume 10.6 fL (9.1-12.4); NEUTROPHILS ABSOLUTE AUTO 9.08 K/mm3 (1.96-9.15); NEUTROPHILS PERCENT AUTO 81 % (41-73); Platelet Count 281 K/mm3 (150-400); RDW Coefficient Variation 13.2 % (11.7-14.2); RDW Standard Deviation 41.1 fL (35.1-46.3); Red Blood Cell Count 3.29 M/mm3 (3.80-5.20); White Blood Cell Count 11.22 K/mm3 (4.00-11.30)
[2023-09-05 05:53] LABS: Albumin, Blood 1.6 g/dL (3.4-5.0); Albumin/Globulin Ratio 0.4 (0.8-1.8); Bilirubin, Total 0.3 mg/dL (0.1-1.0); Bun/Creatinine Ratio 32.8 (12.0-20.0); Calcium, Blood 8.4 mg/dL (8.5-10.1); Creatinine, Blood 0.82 mg/dL (0.40-1.00); Globulin, Blood 4.1 g/dL (2.2-4.0); Potassium, Blood 3.6 mmol/L (3.5-5.5); Total Protein, Blood 5.7 g/dL (6.4-8.2)
--- NOTE | 2023-09-05 06:02 | NUR ---
SHIFT SUMMARY MED NO TELE STATUS PATIENT ALERT, ORIENTED x1. PATIENT WITH HX CVA AND DEMENTIA. WILL ANSWER QUESTIONS WITH NONSENSICAL PHRASES AT TIMES. VITALS STABLE DURING THE NIGHT, TMAX 100.8 VIA RECTAL PROBE, MEDICATED PER EMAR FOR FEVER. WARREN IN PLACE DRAINING YELLOW URINE TO GRAVITY. BOWEL MOVEMENT x1 DURING THE NIGHT. NO OTHER CHANGES DURING THE NIGHT, WILL REPORT TO DAY SHIFT RN.
[2023-09-05 07:56] VITALS: BP 168/88
[2023-09-05 11:58] VITALS: BP 145/109
[2023-09-05] MEDS ORDERED: LOSA50 PO (12:48)
--- NOTE | 2023-09-05 12:49 | NUR ---
CALL TO [facility] TO CONFIRM MEDICATION LIST. HOME MEDS UPDATED.
--- NOTE | 2023-09-05 14:37 | NUR ---
TRANSFER PT PLEASANTLY CONFUSED COOPERATIVE WITH CARE. FAMILY AT BEDSIDE THROUGHOUT DAY. VSS. NO ACUTE CHANGES. PT RECEIVES NEW ROOM ASSIGNMENT. REPORT GIVEN TO VICENTE MEDINA PT BEING PREPARED FOR TRANSFER.
[2023-09-05 15:01] VITALS: BP 129/78
--- NOTE | 2023-09-05 15:20 | NUR ---
Spiritual Care Visit. Pt. had been recently moved to [facility] from [facility]. Pt. is resting but responds to my visit. Pt. displays evidence of being pleastantly confused. Pts. daughter and Pts. sister are present at bedside. Facilitate conversation with the family. Listen with empathy and a calming presence. Pt. had verbalized in her confusion concerns about her spouse. Offered encouragement and some pastoral care. Prayed with Pt. family verbalized gratitude for the spiritual care visit.
[2023-09-05 15:55] VITALS: BP 147/91
--- NOTE | 2023-09-05 17:07 | NUR ---
SHIFT SUMMARY PT TRANSFERRED FROM PCU TO MED FLOOR AT APPROX 1500. PT ARRIVED AxOx3-4 WITH INTERMITTENT CONFUSION. REVIEWED SHIFT SUMMARY FROM PREVIOUS RN, AGREE WITH ALL EXCEPT TO CONTINUE ON BEDREST. PHYSICAL THERAPY NOTES REVIEWED AND WILL FOLLOW NEW RECOMMENDATION OF 2 ASSIST WITH FWW AND GB FOR STAND PIVOT TRANSFER TO CHAIR/BSC. PT REQUESTS TO GET UP FOR MEALS. FAMILY IN ROOM AT THIS TIME. PT IS RESTING IN BED COMFORTABLY. VITALS REVIEWED. PT'S VITALS CONTINUE TO BE ELEVATED THEY WERE PRIOR TO TRANSFER. CALL LIGHT IN REACH. DENIES ANY NEEDS AT THIS TIME.
[2023-09-05 20:04] VITALS: BP 160/76
[2023-09-06 05:51] VITALS: BP 148/84
--- NOTE | 2023-09-06 06:28 | NUR ---
SHIFT SUMMARY PT IS ALERT, NOT ORIENTED TO EVEN HERSELF. DOES NOT ANSWER QUESTIONS, MUMBLES. SHE DOES SMILE WITH MOST QUESTIONS. HYPERTENSIVE AND TACHY IN THE 110'S, AFEBRILE, O2 SATS >90% ON RA. DENIES PAIN. REPOSITIONED TOLERATED. HOLLERS OUT "OUCH" WITH ANY MOVEMENT, BUT WHEN ASKED WHERE HER PAIN IS, SHE DOESN'T ANSWER. NOOB THIS SHIFT. WARREN CATHETER DRAINING LARGE AMOUNTS OF CLEAR, LIGHT YELLOW URINE. LARGE SOFT BM THIS SHIFT. TOLERATING AN ADA DIET. BED ALARM SET FOR PT'S SAFETY. BED IN LOWEST POSITION, CALL LIGHT WITHIN REACH. FIRE SAFETY CHECKS COMPLETED.
[2023-09-06 07:48] VITALS: BP 162/79
[2023-09-06 10:29] LABS: BASOPHILS ABSOLUTE AUTO 0.06 K/mm3 (0.00-0.23); BASOPHILS PERCENT AUTO 1 % (0-2); EOSINOPHILS ABSOLUTE AUTO 0.12 K/mm3 (0.00-0.68); EOSINOPHILS PERCENT AUTO 1 % (0-6); Hematocrit 29.7 % (33.0-51.0); IMMATURE GRAN ABSOLUTE AUTO 0.59 K/mm3 (0.00-0.10); IMMATURE GRAN PERCENT AUTO 5 % (0-1); LYMPHOCYTES ABSOLUTE AUTO 1.14 K/mm3 (0.84-5.20); LYMPHOCYTES PERCENT AUTO 9 % (21-46); MONOCYTES ABSOLUTE AUTO 0.82 K/mm3 (0.16-1.47); MONOCYTES PERCENT AUTO 7 % (4-13); Mean Corpuscular HGB 28.2 pg (26.0-34.0); Mean Corpuscular HGB Conc 33.7 g/dL (31.5-36.5); Mean Corpuscular Volume 84 fL (80-100); Mean Platelet Volume 10.4 fL (9.1-12.4); NEUTROPHILS ABSOLUTE AUTO 9.58 K/mm3 (1.96-9.15); NEUTROPHILS PERCENT AUTO 78 % (41-73); Platelet Count 310 K/mm3 (150-400); RDW Coefficient Variation 13.3 % (11.7-14.2); RDW Standard Deviation 40.5 fL (35.1-46.3); Red Blood Cell Count 3.54 M/mm3 (3.80-5.20); White Blood Cell Count 12.31 K/mm3 (4.00-11.30)
[2023-09-06 11:05] LABS: Albumin, Blood 1.6 g/dL (3.4-5.0); Albumin/Globulin Ratio 0.3 (0.8-1.8); Bilirubin, Total 0.2 mg/dL (0.1-1.0); Bun/Creatinine Ratio 25.9 (12.0-20.0); Calcium, Blood 8.6 mg/dL (8.5-10.1); Creatinine, Blood 0.73 mg/dL (0.40-1.00); Globulin, Blood 4.6 g/dL (2.2-4.0); Potassium, Blood 3.8 mmol/L (3.5-5.5); Total Protein, Blood 6.2 g/dL (6.4-8.2)
[2023-09-06 14:40] VITALS: BP 115/78
--- NOTE | 2023-09-06 17:12 | NUR ---
SHIFT SUMMARY PT PLEASANT AND ALERT BUT NOT ORIENTED. NO ACUTE CHANGES THIS SHIFT. WARREN PATENT AND DRAINING CLEAR YELLOW URINE. CBG AC AND HS, MEDICATED PER EMAR. BED BATH TODAY. PHYSICAL THERAPY ASSESSED, SEE NOTES. BED IN LOW POSITION, CALL LIGHT WITHIN REACH. TURNED Q2 AND DRESSING CHANGED TO SACRUM.
[2023-09-06 19:45] VITALS: BP 161/79
[2023-09-07 02:50] VITALS: BP 141/90
--- NOTE | 2023-09-07 04:46 | NUR ---
SHIFT SUMMARY PT ALERT BUT NOT ORIENTED. CBG AT HS 245. WARREN IS PLACE DRAINING CLEAR YELLOW URINE. MEPILEX IN PLACE ON COCCYX. PT NOT OOB THIS SHIFT. PROVIDED Q2 REPOSITIONING. PT SLEPT MUCH OF THE NIGHT. BED KEPT IN LOWEST POSITION WITH CALL LIGHT WITHIN REACH. WILL CONTINUE TO MONITOR.
[2023-09-07 06:28] LABS: BASOPHILS ABSOLUTE AUTO 0.09 K/mm3 (0.00-0.23); BASOPHILS PERCENT AUTO 1 % (0-2); EOSINOPHILS ABSOLUTE AUTO 0.18 K/mm3 (0.00-0.68); EOSINOPHILS PERCENT AUTO 1 % (0-6); Hematocrit 30.9 % (33.0-51.0); Hemoglobin 10.4 g/dL (11.5-16.0); IMMATURE GRAN ABSOLUTE AUTO 0.67 K/mm3 (0.00-0.10); IMMATURE GRAN PERCENT AUTO 5 % (0-1); LYMPHOCYTES ABSOLUTE AUTO 1.46 K/mm3 (0.84-5.20); LYMPHOCYTES PERCENT AUTO 11 % (21-46); MONOCYTES ABSOLUTE AUTO 1.08 K/mm3 (0.16-1.47); MONOCYTES PERCENT AUTO 8 % (4-13); Mean Corpuscular HGB 27.8 pg (26.0-34.0); Mean Corpuscular HGB Conc 33.7 g/dL (31.5-36.5); Mean Corpuscular Volume 83 fL (80-100); Mean Platelet Volume 10.3 fL (9.1-12.4); NEUTROPHILS ABSOLUTE AUTO 10.24 K/mm3 (1.96-9.15); NEUTROPHILS PERCENT AUTO 75 % (41-73); Platelet Count 339 K/mm3 (150-400); RDW Coefficient Variation 13.3 % (11.7-14.2); RDW Standard Deviation 40.3 fL (35.1-46.3); Red Blood Cell Count 3.74 M/mm3 (3.80-5.20); White Blood Cell Count 13.72 K/mm3 (4.00-11.30)
[2023-09-07 06:49] LABS: Bun/Creatinine Ratio 23.7 (12.0-20.0); Calcium, Blood 8.9 mg/dL (8.5-10.1); Creatinine, Blood 0.59 mg/dL (0.40-1.00); Potassium, Blood 3.4 mmol/L (3.5-5.5)
[2023-09-07 08:20] VITALS: BP 146/110
[2023-09-07 15:54] VITALS: BP 136/75
--- NOTE | 2023-09-07 16:40 | NUR ---
PT HAS BEEN AOX1 AND IS A TWO PERSON WITH GAITBELT TO CHAIR. DR ARRIETA REQUESTED WARREN TO BE REMOVED AND SEE IF PT CAN VOID ON HER OWN. PT HAD SOME URINE IN HER ATTENDS, BUT BLADDER SCAN WAS OVER 500MLS. DR ARRIETA WAS NOTIFIED AND PT TO HAVE WARREN REPLACED. PT DOES SEEM TO BE DOING WELL AND WAS TRYING TO VISIT AND INTERACT WITH FAMILY WHEN THEY CAME TO VISIT. NO DISTRESS NOTED CALL LIGHT IN REACG BED ALARM IN PLACE WILL CONTINUE TO MONITOR.
--- NOTE | 2023-09-07 18:37 | NUR ---
Spiritual Care Visit. Pt. is pleasantly confused in bed and smiles when I come into the room. Spouse is at bedside and welcomes my visit. Facilitate a long conversation regarding the Pt., Spouse, and self care. The spouse displayed evidencee of trust and engagement. Spouse displays evidence of trust, understanding, and engagement.Spouse verbalized gratitude for the spiritual care visit and requested this blanket weaver to return.
[2023-09-07 19:40] VITALS: BP 155/75
--- NOTE | 2023-09-08 05:19 | NUR ---
SHIFT SUMMARY. NO ACUTE CHANGES. PATIENT IS ALERT TO SELF. WARREN IS PATENT AND DRAINING TO GRAVITY. PATIENT SLEPT T/O MOST OF NIGHT. PLEASANT AND COOPERATIVE WITH CARE. BED IS LOCKED IN THE LOWEST POSITION WITH CALL LIGHT IN REACH.
[2023-09-08 06:00] LABS: BASOPHILS ABSOLUTE AUTO 0.08 K/mm3 (0.00-0.23); BASOPHILS PERCENT AUTO 1 % (0-2); EOSINOPHILS ABSOLUTE AUTO 0.18 K/mm3 (0.00-0.68); EOSINOPHILS PERCENT AUTO 2 % (0-6); Hematocrit 31.2 % (33.0-51.0); Hemoglobin 10.4 g/dL (11.5-16.0); IMMATURE GRAN ABSOLUTE AUTO 0.63 K/mm3 (0.00-0.10); IMMATURE GRAN PERCENT AUTO 5 % (0-1); LYMPHOCYTES ABSOLUTE AUTO 1.62 K/mm3 (0.84-5.20); LYMPHOCYTES PERCENT AUTO 14 % (21-46); MONOCYTES ABSOLUTE AUTO 0.99 K/mm3 (0.16-1.47); MONOCYTES PERCENT AUTO 8 % (4-13); Mean Corpuscular HGB Conc 33.3 g/dL (31.5-36.5); Mean Corpuscular Volume 84 fL (80-100); Mean Platelet Volume 10.2 fL (9.1-12.4); NEUTROPHILS ABSOLUTE AUTO 8.49 K/mm3 (1.96-9.15); NEUTROPHILS PERCENT AUTO 71 % (41-73); Platelet Count 327 K/mm3 (150-400); RDW Coefficient Variation 13.3 % (11.7-14.2); RDW Standard Deviation 40.5 fL (35.1-46.3); Red Blood Cell Count 3.72 M/mm3 (3.80-5.20); White Blood Cell Count 11.99 K/mm3 (4.00-11.30)
[2023-09-08 06:14] LABS: Bun/Creatinine Ratio 20.9 (12.0-20.0); Calcium, Blood 9.1 mg/dL (8.5-10.1); Creatinine, Blood 0.62 mg/dL (0.40-1.00); Potassium, Blood 3.2 mmol/L (3.5-5.5)
[2023-09-08 07:48] VITALS: BP 151/101
--- NOTE | 2023-09-08 15:10 | NUR ---
Spiritual Care Visit. Pt. is sitting up in her recliner and has been coloring. Spouse is present at bedside when he welcomes my visit. Facilitate family centric storytelling with both the Pt. and Spouse. Pt. displays evidence of being pleasantly confused. Took Pt. by the hand and prayed with her. Spouse verblaized gratitude for the spiritual care visit. Will remain available to the Pt. and family.
--- NOTE | 2023-09-08 16:13 | NUR ---
DAYSHIFT SUMMARY Patient alert & oriented to self & person. Plan to continue IV ABX for infection. Patient worked with therapy today, max assist back to bed. Patient scared of falling, yelling and crying during activity. Patient incontinent of B/B. CBGs WNL, SSI given. VSS. Will continue plan of care.
[2023-09-08 19:32] VITALS: BP 145/75
[2023-09-08 20:11] LABS: HEMOGLOBIN A1C 9.6 % (4.8-5.6)
[2023-09-09 04:23] VITALS: BP 147/91
[2023-09-09 04:46] LABS: BASOPHILS ABSOLUTE AUTO 0.05 K/mm3 (0.00-0.23); BASOPHILS PERCENT AUTO 1 % (0-2); EOSINOPHILS ABSOLUTE AUTO 0.19 K/mm3 (0.00-0.68); EOSINOPHILS PERCENT AUTO 2 % (0-6); Hematocrit 30.5 % (33.0-51.0); Hemoglobin 10.1 g/dL (11.5-16.0); IMMATURE GRAN PERCENT AUTO 5 % (0-1); LYMPHOCYTES ABSOLUTE AUTO 1.78 K/mm3 (0.84-5.20); LYMPHOCYTES PERCENT AUTO 16 % (21-46); MONOCYTES ABSOLUTE AUTO 0.82 K/mm3 (0.16-1.47); MONOCYTES PERCENT AUTO 8 % (4-13); Mean Corpuscular HGB 27.9 pg (26.0-34.0); Mean Corpuscular HGB Conc 33.1 g/dL (31.5-36.5); Mean Corpuscular Volume 84 fL (80-100); Mean Platelet Volume 10.2 fL (9.1-12.4); NEUTROPHILS PERCENT AUTO 69 % (41-73); Platelet Count 353 K/mm3 (150-400); RDW Coefficient Variation 13.4 % (11.7-14.2); RDW Standard Deviation 40.8 fL (35.1-46.3); Red Blood Cell Count 3.62 M/mm3 (3.80-5.20); White Blood Cell Count 10.94 K/mm3 (4.00-11.30)
--- NOTE | 2023-09-09 04:50 | NUR ---
SHIFT SUMMARY *AMADOR* IS ALERT AND ORIENTED X 1-2 ON ASSESSMENT. SHE IS PLEASANT TONIGHT, WITH NO BEHAVIORAL ISSUES. SHE DENIES C/P/PRESSURE, SOB, AND DISCOMFORT/PAIN. NO ACUTE EVENTS TONIGHT, AND NO OBSERVABLE CHANGES IN CONDITION. WARREN DRAINING YELLOW URINE TO GRAVITY. POWERGLIDE NOT DRAWING, BUT FLUSHING WELL. PER DAYSHIFT REPORT PLAN IS TO D/C PT TODAY ON DAY SHIFT. PT RESTING IN BED IN A LOW POSITION WITH CALL LIGHT IN REACH AND BED ALARM PLACED.
[2023-09-09 06:12] LABS: Albumin, Blood 1.9 g/dL (3.4-5.0); Albumin/Globulin Ratio 0.4 (0.8-1.8); Bilirubin, Total 0.2 mg/dL (0.1-1.0); Bun/Creatinine Ratio 23.3 (12.0-20.0); Calcium, Blood 9.4 mg/dL (8.5-10.1); Creatinine, Blood 0.77 mg/dL (0.40-1.00); Globulin, Blood 4.8 g/dL (2.2-4.0); Potassium, Blood 4.2 mmol/L (3.5-5.5); Total Protein, Blood 6.7 g/dL (6.4-8.2)
[2023-09-09 07:34] VITALS: BP 157/77
[2023-09-09] MEDS ORDERED: CEFP200 PO (15:04)
== END 2023-09-09 15:45 | disposition home health service (06) | DRG 698 ==
LOC: ER 12:40 → PCU 18:20 → MEDS 18:20 → PCU 20:58 → SURS 09-04 13:20 → PCU 09-04 13:25 → MEDS 09-05 14:57 → ENPENDDIS 09-09 14:07 → MEDS 09-09 15:45
PROVIDERS: Internal Medicine; Physician Assistant; Student in an Organized Health Care Education/Training Program; ADMIT Internal Medicine
DX: T83.511A Infection and inflammatory reaction due to indwelling urethral catheter, initial encounter (principal); A41.51 Sepsis due to Escherichia coli [E. coli]; R65.20 Severe sepsis without septic shock; G93.41 Metabolic encephalopathy; I50.22 Chronic systolic (congestive) heart failure; E87.0 Hyperosmolality and hypernatremia; F01.C18 Vascular dementia, severe, with other behavioral disturbance; E87.20 Acidosis, unspecified; E87.1 Hypo-osmolality and hyponatremia; Z66 Do not resuscitate; N39.0 Urinary tract infection, site not specified; G40.909 Epilepsy, unspecified, not intractable, without status epilepticus; I25.10 Atherosclerotic heart disease of native coronary artery without angina pectoris; I11.0 Hypertensive heart disease with heart failure; E11.65 Type 2 diabetes mellitus with hyperglycemia; R33.9 Retention of urine, unspecified; I25.2 Old myocardial infarction; Z88.0 Allergy status to penicillin; Z88.8 Allergy status to other drugs, medicaments and biological substances; Z79.02 Long term (current) use of antithrombotics/antiplatelets; Z79.4 Long term (current) use of insulin; Z86.73 Personal history of transient ischemic attack (TIA), and cerebral infarction without residual deficits; Z87.891 Personal history of nicotine dependence; Z79.82 Long term (current) use of aspirin; Z79.84 Long term (current) use of oral hypoglycemic drugs
CPT/HCPCS: 0241U; 36415; 51702; 70450; 71045; 72125; 74177; 80048; 80053; 80177; 81001; 82947; 83036; 83605; 83880; 84484; 85025; 87040; 87077; 87086; 87186; 92526; 92610; 93005; 93010; 96365; 96375; 97110; 97163; 97165; 97530; 97535; 99285-25; A9270; J0692; J0696; J1644; J1815; J1885; J1953; J7030; J7060; Q9967

== ENCOUNTER → 2023-10-22 | Outpatient (CLI) | payer MEDICARE, OTHER ==
[~2023-10-22] MED LIST changes: +CEFP200 PO; +LOSA50 PO
[2023-10-22 11:53] LABS: Source, Urine Voided
[2023-10-22 13:40] LABS: Appearance, Urine Hazy (Clear); Bilirubin, Urine Neg (Neg); Blood, Urine 3+ (Neg); Glucose Qualitative, Urine Neg (Neg); Ketones, Urine Neg (Neg); Leukocyte Esterase, Urine 3+ (Neg); Nitrite, Urine Pos (Neg); Protein, Urine Neg (Neg); Urobilinogen, Urine NORM (Normal)
[2023-10-22 13:54] LABS: Color, Urine Pale Yellow (P-Yellow)
[2023-10-22 13:55] LABS: Bacteria Many /hpf; Squamous Epithelial Cells Few /hpf (Few); Transitional Epithelial Cells Rare /hpf (0-Rare); White Blood Cells, Urine 25-50 /hpf (0-5)
[2023-10-22 13:56] LABS: Amorphous Mod (0-Heavy)
== END ==
LOC: LAB 11:51 → LAB SHORT 11:51
PROVIDERS: Family Medicine
DX: R30.0 Dysuria (principal)
CPT/HCPCS: 81001; 87086

== ENCOUNTER 2023-11-24 13:29 | Emergency (ER) | payer MEDICARE, OTHER ==
[~2023-11-24] VITALS: Ht 170.2 cm; Wt 63.5 kg
--- NOTE | 2023-11-24 14:31 | NUR ---
Pt. is awaiting a room in the ED. This improvement intern recognized the Pt. from previous hospitalizations. Pt. is pleasantly confused. EMT who was with the Pt. verbalized that family members are in the waiting room. This improvement intern met with Pts. daughter and later spouse. Listened to families concerns about the Pts. care from her primary physician. Sought to normalize hte Pt. experience. Family verblaized gratitude for the spiritual car support. Will continue to be available tothe Pt. and family.
[2023-11-24 15:12] VITALS: BP 149/94
[2023-11-24] MEDS ORDERED: TOPI25 PO (15:54)
== END 2023-11-24 16:00 | disposition home or self-care (01) ==
LOC: ER 13:29
DX: R56.9 Unspecified convulsions (principal); E11.9 Type 2 diabetes mellitus without complications; F03.90 Unspecified dementia, unspecified severity, without behavioral disturbance, psychotic disturbance, mood disturbance, and anxiety; I11.0 Hypertensive heart disease with heart failure; I50.9 Heart failure, unspecified; Z87.891 Personal history of nicotine dependence
CPT/HCPCS: 82947; 93005; 93010; 99284-25

== ENCOUNTER 2024-08-01 18:55 | Inpatient (IN) | payer MEDICARE, OTHER ==
[~2024-08-01] VITALS: Ht 162.6 cm; Wt 68.0 kg
[~2024-08-01 18:55] MED LIST changes: -Ativan1 MG PO; -CEFD300 PO; -CENTRUM SILVER1 EAC2 PO; -Divalproex Sod125 M1 PO; -ELIQUIS5 M2 PO; -ESCI5 PO; -INSULANI SC; -LOSA50 PO
[2024-08-01] MEDS ORDERED: ESCI5 PO (19:16)
[2024-08-01] MEDS ORDERED: CEFD300 PO (19:17)
[2024-08-01] MEDS ORDERED: Ondansetron HCl 2 MG / ML 2ML Vial IV ONE (19:45)
[2024-08-01] MEDS ORDERED: FentaNYL Citrate 50 MCG/ML 2 ML Injection IV ONE (19:45)
[2024-08-01] MEDS ORDERED: FLU VACC TS2024-25(6MOS UP)/PF 45 MCG/0.5 ML SYRINGE IM ONE (22:05)
[2024-08-01] MEDS ORDERED: FentaNYL Citrate 50 MCG/ML 2 ML Injection IV PRN (22:05)
[2024-08-01] MEDS ORDERED: CefTRIAXone Sodium 1,000 MG in NS 100 ML IV ONE (22:05)
[2024-08-01] MEDS ORDERED: OxyCODONE HCL 5 MG TAB PO PRN (22:05)
[2024-08-01] MEDS ORDERED: Ondansetron HCl 2 MG / ML 2ML Vial IV PRN (22:05)
[2024-08-01] MEDS ORDERED: Acetaminophen 325 MG TABLET PO PRN (22:10)
[2024-08-01 22:55] LABS: International Normalized Ratio 1.06; Prothrombin Time Results 11.3 Sec (9.7-11.5)
[2024-08-01] MEDS ORDERED: Lactated Ringer's 1,000 ML IV SCH (23:00)
[2024-08-01] MEDS ORDERED: ELIQUIS5 M2 PO (23:11)
[2024-08-01] MEDS ORDERED: Divalproex Sod125 M1 PO (23:16)
[2024-08-01 23:39] LABS: BASOPHILS ABSOLUTE AUTO 0.05 K/mm3 (0.00-0.23); BASOPHILS PERCENT AUTO 0 % (0-2); EOSINOPHILS ABSOLUTE AUTO 0.02 K/mm3 (0.00-0.68); EOSINOPHILS PERCENT AUTO 0 % (0-6); Hematocrit 35.9 % (33.0-51.0); Hemoglobin 12.2 g/dL (11.5-16.0); IMMATURE GRAN ABSOLUTE AUTO 0.07 K/mm3 (0.00-0.10); IMMATURE GRAN PERCENT AUTO 0 % (0-1); LYMPHOCYTES ABSOLUTE AUTO 1.18 K/mm3 (0.84-5.20); LYMPHOCYTES PERCENT AUTO 7 % (21-46); MONOCYTES PERCENT AUTO 6 % (4-13); Mean Corpuscular HGB 29.8 pg (26.0-34.0); Mean Corpuscular Volume 88 fL (80-100); Mean Platelet Volume 10.5 fL (9.1-12.4); NEUTROPHILS ABSOLUTE AUTO 14.99 K/mm3 (1.96-9.15); NEUTROPHILS PERCENT AUTO 87 % (41-73); Platelet Count 163 K/mm3 (150-400); RDW Coefficient Variation 11.7 % (11.7-14.2); RDW Standard Deviation 37.3 fL (35.1-46.3); Red Blood Cell Count 4.09 M/mm3 (3.80-5.20); White Blood Cell Count 17.31 K/mm3 (4.00-11.30)
[2024-08-02] VITALS (40 sets, daily range): BP systolic 75–125; BP diastolic 38–97
[2024-08-02] MEDS ORDERED: Insulin Regular 100 UNIT/ML 10ML Vial SC SCH
[2024-08-02 00:04] LABS: Albumin, Blood 3.2 g/dL (3.4-5.0); Bilirubin, Total 0.5 mg/dL (0.1-1.0); Bun/Creatinine Ratio 31.4 (12.0-20.0); Calcium, Blood 9.1 mg/dL (8.5-10.1); Creatinine, Blood 1.05 mg/dL (0.40-1.00); Globulin, Blood 3.3 g/dL (2.2-4.0); Potassium, Blood 4.6 mmol/L (3.5-5.5); Total Protein, Blood 6.5 g/dL (6.4-8.2)
[2024-08-02] MEDS ORDERED: Naloxone HCl 0.4MG / ML 1ML Vial IV PRN (00:15)
[2024-08-02] MEDS ORDERED: CefTRIAXone Sodium 1,000 MG in NS 100 ML IV ONE (01:25)
[2024-08-02 02:35] LABS: Source, Urine Foley catheter
[2024-08-02 02:40] LABS: Bilirubin, Urine Neg (Neg); Blood, Urine 3+ (Neg); Glucose Qualitative, Urine Neg (Neg); Ketones, Urine 1+ (Neg); Leukocyte Esterase, Urine 2+ (Neg); Nitrite, Urine Neg (Neg); Protein, Urine 1+ (Neg); Urobilinogen, Urine NORM (Normal)
[2024-08-02 02:53] LABS: Appearance, Urine Hazy (Clear); Color, Urine Yellow (P-Yellow)
[2024-08-02 02:54] LABS: Bacteria Many /hpf; Red Blood Cells, Urine 0-2 /hpf (0-2); Squamous Epithelial Cells Not Seen /hpf (Few); White Blood Cells, Urine 50-100 /hpf (0-5)
--- NOTE | 2024-08-02 05:51 | NUR ---
SHIFT SUMMARY PT ADMITTED TO ROOM 349 AT 2330. ARRIVED WITH PT. PT ALERT, ORIENTED TO PERSON ONLY. PT FOLLOWS SOME DIRECTIONS. ASSISTED WITH ADMISSION QUESTIONS. RIGHT THIGH/ HIP VERY SWOLLEN- ICE MAINTAINED TO R HIP/THIGH AREA. MEDICATED FOR PAIN PER EMAR. WARREN PLACED, UA OBTAINED. SKIN INTACT. PT RESTED ON/OFF THROUGH THE NIGHT. NPO. SURGERY ANTICIPATED FOR LATER TODAY.
[2024-08-02 05:58] LABS: BASOPHILS ABSOLUTE AUTO 0.04 K/mm3 (0.00-0.23); BASOPHILS PERCENT AUTO 0 % (0-2); EOSINOPHILS ABSOLUTE AUTO 0.01 K/mm3 (0.00-0.68); EOSINOPHILS PERCENT AUTO 0 % (0-6); Hematocrit 34.7 % (33.0-51.0); Hemoglobin 11.6 g/dL (11.5-16.0); IMMATURE GRAN ABSOLUTE AUTO 0.08 K/mm3 (0.00-0.10); IMMATURE GRAN PERCENT AUTO 1 % (0-1); LYMPHOCYTES ABSOLUTE AUTO 0.89 K/mm3 (0.84-5.20); LYMPHOCYTES PERCENT AUTO 6 % (21-46); MONOCYTES ABSOLUTE AUTO 0.71 K/mm3 (0.16-1.47); MONOCYTES PERCENT AUTO 5 % (4-13); Mean Corpuscular HGB 30.1 pg (26.0-34.0); Mean Corpuscular HGB Conc 33.4 g/dL (31.5-36.5); Mean Corpuscular Volume 90 fL (80-100); Mean Platelet Volume 11.1 fL (9.1-12.4); NEUTROPHILS PERCENT AUTO 89 % (41-73); Platelet Count 154 K/mm3 (150-400); RDW Coefficient Variation 11.9 % (11.7-14.2); RDW Standard Deviation 38.8 fL (35.1-46.3); Red Blood Cell Count 3.85 M/mm3 (3.80-5.20); White Blood Cell Count 15.33 K/mm3 (4.00-11.30)
[2024-08-02 06:10] LABS: International Normalized Ratio 1.03
[2024-08-02 06:17] LABS: Albumin, Blood 3.2 g/dL (3.4-5.0); Albumin/Globulin Ratio 0.9 (0.8-1.8); Bilirubin, Total 0.5 mg/dL (0.1-1.0); Bun/Creatinine Ratio 32.2 (12.0-20.0); Calcium, Blood 9.3 mg/dL (8.5-10.1); Creatinine, Blood 1.18 mg/dL (0.40-1.00); Globulin, Blood 3.5 g/dL (2.2-4.0); Magnesium, Blood 1.8 mg/dL (1.6-2.4); Potassium, Blood 4.9 mmol/L (3.5-5.5); Total Protein, Blood 6.7 g/dL (6.4-8.2)
[2024-08-02] MEDS ORDERED: Topiramate 25 MG Tab PO SCH (09:00)
[2024-08-02] MEDS ORDERED: Losartan Potassium 50 MG Tab PO SCH (09:00)
[2024-08-02] MEDS ORDERED: Citalopram Hydrobromide 10 MG TAB PO SCH (09:00)
[2024-08-02] MEDS ORDERED: Docusate Sodium 100 MG Cap PO SCH (09:00)
[2024-08-02] MEDS ORDERED: Metoprolol Succinate 25 MG TABCR PO SCH (09:00)
[2024-08-02] MEDS ORDERED: LevETIRAcetam 500 MG Tab PO SCH (09:00)
[2024-08-02] MEDS ORDERED: Lactated Ringer's 1,000 ML IV SCH (11:30)
--- NOTE | 2024-08-02 12:00 | NUR ---
PT BEEN TO SDS BY BED WITH OTHER STAFF. PT REPORTED TO BE NPO OTHER THAN MEDS THIS AM. PT ORIENTED TO FIRST NAME ONLY. FAMILY IN ROOM REPORTED THAT THEY WOULD CONTACT TO BE AVAILABLE FOR CONSENT. PHONE NUMBERS BEEN CALLED FROM [employer] FOR AND DAUGHTER OF WHICH NO-ONE HAS ANSWERED. PT'S BROTHER AT BEDSIDE AT THIS TIME. PT BEEN ASSISTED WITH ADL'S PRN. History, Chart, Medications and Allergies reviewed before start of procedure.Lungs clear T/O to Auscultation. Pre-Op teaching done. Pt verbalizes understanding.
--- NOTE | 2024-08-02 12:32 | NUR ---
DAUGHTER CONTACTED BY PHONE, DR HILL AND ANESTHESIA CONSULTED CONSENT.
[2024-08-02] MEDS ORDERED: FentaNYL Citrate 50 MCG/ML 2 ML Injection ONE ×4 (12:47→15:03)
[2024-08-02] MEDS ORDERED: propofoL 0 ML IV ONE (12:47)
[2024-08-02] MEDS ORDERED: Etomidate 2MG / ML 10ML Vial ONE (12:54)
[2024-08-02] MEDS ORDERED: Phenylephrine HCl 10mg/ml 1 ml Vial ONE (12:55)
[2024-08-02] MEDS ORDERED: Ondansetron HCl 2 MG / ML 2ML Vial ONE (14:01)
[2024-08-02] MEDS ORDERED: Metoclopramide HCl 5MG / ML 2ML Vial ONE (14:01)
--- NOTE | 2024-08-02 14:37 | NUR ---
Spiritual Care Family Support. Pt. is in surgery. Pts. brother is waiting in the Surg. waiting area when he welcomes my visit. Facilitated a life review and learn about the family system and relationships. Listened with empathy and interest. Brother verbalized that the Pts. daughter would be coming after work. Brother verbalized gratitude for the spiritual care visit.
[2024-08-02] MEDS ORDERED: CeFAZolin Sodium 2,000 MG in NS 100 ML IV SCH (16:00)
[2024-08-02] MEDS ORDERED: Insulin Human Lispro 100 Units/ML 3ML Syringe SC SCH (16:30)
--- NOTE | 2024-08-02 18:41 | NUR ---
Pt. had returned to her room after hip surgery. Family memebers are present. Nurses were trying to get the Pt. settled in , so after re-establishing rapport this hob mill operator and the family agreed that I would return in the morning.
[2024-08-02] MEDS ORDERED: NS 1,000 ML IV ONE (19:00)
--- NOTE | 2024-08-02 19:38 | NUR ---
SUPERVISOR GEAR REPAIR AND RN WENT TO THE BEDSIDE TO CHECK POST OP VITALS AT 1830. THE BP READ 77/49 (60), SPO2 WASNT REGISTERING. CHELSEY BEATER ROOM HELPER, WAS NOTIFIED AND HE CAME TO THE BEDSIDE TO ASSESS THE PATIENT. NS BOLUS STARTED AND A TOTAL OF 400 ML NS WAS INFUSED. FOLLOWING THE BOLUS WAS A BP OF 125/57 AND 116/75. CHELSEY ORDERED THE NS BE CHANGED TO 125/HR. STAT EKG WAS DONE AND SHOWED NSR 79 BPM, CHELSEY READ THIS AT THE BEDSIDE. ABG WAS ORDERED STAT, RT CAME TO THE ROOM AND PLACED AN EAR PROBE WHICH RESULTED IN A SPO2 READING OF 100% ON THE NON-REBREATHER. THE NON-REBREATHER WAS REMOVED AND THE PATIENT WAS PLACED ON 3L O2 AT 99% HR 83 BPM. CHELSEY BEATER ROOM HELPER NOTIFIED OF THIS FINDING, AND ORDERED THAT THE ABG BE DC'D IF THE RT FELT THE WAVEFORM WAS ACCURATE. VBG WAS ORDERED IN IT'S PLACE AND DRAWN AT THE BEDSIDE. CRITICAL LACTIC OF 2.5 WAS REPORTED BY LAB AT 1945, MESSAGE LEFT ON CHELSEY'S VOICEMAIL. FAMILY HAS BEEN AT THE BEDSIDE. STAFF IS PACKING UP THE PATIENT'S BELONGINGS TO TRANSFER TO ICU.
[2024-08-02 19:40] LABS: Base Excess Venous -8.5 mmol/L; PCO2 Venous 34.6 mmHg (38-42); pH Blood Venous 7.32 (7.34-7.37)
[2024-08-02 19:47] LABS: Hematocrit 23.6 % (33.0-51.0); Hemoglobin 7.7 g/dL (11.5-16.0)
--- NOTE | 2024-08-02 20:00 | NUR ---
ASSUMED CARE: PT A/0X0, PERRLA, COOPERATIVE, OBEYS COMMANDS, ANSWERS ALL ORIENTATION QUESTIONS WITH "IT'S ALL SO CONFUSING". AROUSES TO VERBAL, BUE WEAK, AFRAID TO MOVE BLE. BLE SCDS ON, TOLERATING WELL, PULSES PALPABLE ALL EXTREMITIES. DAUGHTER AND IN WAITING ROOM.
[2024-08-02] MEDS ORDERED: CefTRIAXone Sodium 1,000 MG in NS 100 ML IV SCH (21:00)
[2024-08-02] MEDS ORDERED: Insulin Glargine-Yfgn 100 Unit/mL 3 ML SYR SC SCH (21:00)
[2024-08-02] MEDS ORDERED: NS 250 ML IV PRN (21:30)
[2024-08-02 21:58] LABS: Hematocrit 19.5 % (33.0-51.0); Hemoglobin 6.5 g/dL (11.5-16.0)
[2024-08-02 22:13] LABS: Calcium, Blood 7.6 mg/dL (8.5-10.1); Creatinine, Blood 1.77 mg/dL (0.40-1.00); Potassium, Blood 4.7 mmol/L (3.5-5.5)
[2024-08-02] MEDS ORDERED: Insulin Glargine-Yfgn 100 Unit/mL 3 ML SYR SC ONE (22:35)
[2024-08-03] VITALS (34 sets, daily range): BP systolic 85–147; BP diastolic 36–123
[2024-08-03 00:24] LABS: Hematocrit 24.6 % (33.0-51.0); Hemoglobin 8.4 g/dL (11.5-16.0)
[2024-08-03 03:56] LABS: Hematocrit 23.2 % (33.0-51.0)
[2024-08-03 04:15] LABS: Bun/Creatinine Ratio 28.8 (12.0-20.0); Calcium, Blood 8.1 mg/dL (8.5-10.1); Creatinine, Blood 1.56 mg/dL (0.40-1.00); Potassium, Blood 4.8 mmol/L (3.5-5.5)
--- NOTE | 2024-08-03 05:52 | NUR ---
PT RESTED COMFORTABLY THROUGHOUT THE NIGHT. VSS, 1U PRBC RECEIVED BRINGING UP HGB FROM 6.5 TO 8.4. COOPERATIVE WITH CARE, REORIENTED WITH ALL ACTIVITY.
[2024-08-03 07:47] LABS: Hematocrit 22.2 % (33.0-51.0); Hemoglobin 7.6 g/dL (11.5-16.0)
[2024-08-03] MEDS ORDERED: Metoprolol Succinate 25 MG TABCR PO SCH (09:00)
[2024-08-03] MEDS ORDERED: Losartan Potassium 50 MG Tab PO SCH (09:00)
[2024-08-03] MEDS ORDERED: Lactobacil 2-S.Thermo-Bifido 1 1 Cap PO SCH (09:00)
--- NOTE | 2024-08-03 10:32 | NUR ---
Spiritual Care Visit. Pt. is now in ICU, but is awake. Daughter is at bedside and welcomes my visit. Pt. displays evidence of being confused, but is pleasant. The family is known to this heating unit mechanic from the community and from previous hospitalizations. Considered matters of pamela and belief. Both Pt. and daughter displayed evidence that they had been encouraged. Daughter verbalized gratitude for the spiritual care visit. Will remain available to the Pt. and family.
--- NOTE | 2024-08-03 10:40 | NUR ---
ASSUMPTION OF CARE PT ALERT BUT VERY CONFUSED. NONSENSE SPEECH. NOT ORIENTED TO PLACE, TIME, OR SITUATION. BP LOWERING MEDS HELD THIS AM D/T SBP < 120. SEMI COOPERATIVE WITH CARES.
[2024-08-03 11:33] LABS: Hemoglobin 7.4 g/dL (11.5-16.0)
--- NOTE | 2024-08-03 16:12 | NUR ---
Spiritual Care Follow up visit. This electrifier operator re-visited the Pt. after I saw that pts. spouse had arrived. Facilitated an update from the Pts. daughter who is also at bedside. Pastoral care and encouragement is given to the entire family. Pt. displays evidence of her confusion, but verbalized her pleasure for having a spiritual care visit. Will remain available to the Pt. and family.
[2024-08-03] MEDS ORDERED: Divalproex Sodium 125 MG CAP PO SCH (18:00)
--- NOTE | 2024-08-03 19:30 | NUR ---
SHIFT SUMMARY NO CHANGES TO REPORT SINCE PT ARRIVED TO THE UNIT. BEDSIDE REPORT GIVEN TO KEERTHI MEDINA.
--- NOTE | 2024-08-03 19:41 | NUR ---
PT ARRIVED TO THE ROOM FROM ICU AT APPROXIMATELY 1800. PT AWAKE AND ALERT BUT CONFUSED, PER HER HER MENTATION AND SPEECH ARE AT BASELINE. SKIN CHECK COMPLETED BY THIS RN, TONY TREVINO RN, AND EDUARDO MORGAN RN. PT HAD SCANT REDNESS TO HER COCCYX, THE ARE WAS BLANCHING. PAIN MANAGED WHILE PT IS AT REST BUT PT IS PAINFUL WITH MOVEMENT AND REPOSITIONING.
[2024-08-03 20:23] LABS: Hematocrit 19.9 % (33.0-51.0); Hemoglobin 6.9 g/dL (11.5-16.0)
[2024-08-03] MEDS ORDERED: Insulin Glargine-Yfgn 100 Unit/mL 3 ML SYR SC SCH ×3 (21:00→22:10)
--- NOTE | 2024-08-03 22:19 | NUR ---
PT BLOOD SUGAR 361 TONIGHT.PTS RN UNSURE IF PT WILL EAT SNACK AND PT HAS GLARGINE 30 UNITS ORDERED TO GIVE.I CALLED CHELSEY AND HE CHANGED ORDER TO 18 UNITS GARGINE NIGHTLY.ALSO DISCUSSED H/H RESULTS.NO CHANGE OF ORDERS REGARDING THIS.
[2024-08-04] VITALS (9 sets, daily range): BP systolic 118–147; BP diastolic 57–108
[2024-08-04 05:34] LABS: BASOPHILS ABSOLUTE AUTO 0.03 K/mm3 (0.00-0.23); BASOPHILS PERCENT AUTO 0 % (0-2); EOSINOPHILS ABSOLUTE AUTO 0.01 K/mm3 (0.00-0.68); EOSINOPHILS PERCENT AUTO 0 % (0-6); Hemoglobin 6.9 g/dL (11.5-16.0); IMMATURE GRAN ABSOLUTE AUTO 0.08 K/mm3 (0.00-0.10); IMMATURE GRAN PERCENT AUTO 1 % (0-1); LYMPHOCYTES ABSOLUTE AUTO 1.15 K/mm3 (0.84-5.20); LYMPHOCYTES PERCENT AUTO 12 % (21-46); MONOCYTES ABSOLUTE AUTO 1.08 K/mm3 (0.16-1.47); MONOCYTES PERCENT AUTO 11 % (4-13); Mean Corpuscular HGB 30.8 pg (26.0-34.0); Mean Corpuscular HGB Conc 34.5 g/dL (31.5-36.5); Mean Corpuscular Volume 89 fL (80-100); Mean Platelet Volume 11.7 fL (9.1-12.4); NEUTROPHILS ABSOLUTE AUTO 7.63 K/mm3 (1.96-9.15); NEUTROPHILS PERCENT AUTO 77 % (41-73); Platelet Count 89 K/mm3 (150-400); RDW Coefficient Variation 13.5 % (11.7-14.2); RDW Standard Deviation 43.7 fL (35.1-46.3); Red Blood Cell Count 2.24 M/mm3 (3.80-5.20); White Blood Cell Count 9.98 K/mm3 (4.00-11.30)
--- NOTE | 2024-08-04 05:37 | NUR ---
NOC SUMMARY- PT REMAINS CONFUSED. PT HAS REMAINED COMFORTABLE THROUGHOUT SHIFT. PT DRESSINGS ARE C/D/I. PT REPOSITIONED Q2 HRS. PT WARREN DRAINING TO GRAVITY. PT CBG WAS REPORTED TO HOSPITALIST AND NEW ORDERS INSULIN WAS GIVEN. PT HAS BEEN DRINKING PO FLUIDS. PROVDER ALSO INFORMED ABOUT HGB RESULT LAST NIGHT. PROVIDER ORDERED TO CONTINUE TO MONITOR AND THAT HE WAS NOT GOING TO ORDER BLOOD PRODUCTS YET. PT CURRENTLY AWAKE ND PLESANTLY CONFUSED. PT SPEAKS IN WORD SALAD. CALL LIGHT IN REACH AND BED ALARM ON.
[2024-08-04 05:44] LABS: Calcium, Blood 8.7 mg/dL (8.5-10.1); Creatinine, Blood 1.08 mg/dL (0.40-1.00); Potassium, Blood 4.6 mmol/L (3.5-5.5)
[2024-08-04] MEDS ORDERED: Spironolactone 12.5 MG TAB PO SCH (09:00)
[2024-08-04] MEDS ORDERED: Empagliflozin 10 MG TAB PO SCH (09:00)
[2024-08-04] MEDS ORDERED: Famotidine 20 MG Tab PO SCH (09:00)
[2024-08-04 11:17] LABS: Percent Saturation 8.5 % (15.0-50.0)
--- NOTE | 2024-08-04 17:52 | NUR ---
PATIENT IS ALERT AND DISORIENTED. 1 UNIT PRBC TRANSFUSED THIS SHIFT. PATIENT IS MORE AWAKE THIS AFTERNOON FOLLOWING THE BLOOD TRANSFUSION. FAMILY IS AT THE BEDSIDE SINCE LUNCH TIME. THE PT PERKED RIGHT UP ONCE HER DAUGHTER ARRIVED. PT WAS UNABLE TO WORK WITH PT OR OT THIS MORNING. C/O ABD PAIN, MEDICATED PER EMAR. ATTEMPTED TO HAVE THE PATIENT USE THE BEDPAN, WITHOUT SUCCESS. VSS. HR 53 BPM, DR. FUENTES AWARE. WILL CONTINUE TO MONITOR
--- NOTE | 2024-08-04 19:47 | NUR ---
PHYSICIAN COMMUNICATION CALLED CHELSEY Moran REGARDING DAUGHTERS REQUEST FOR BOWEL CARE FOR PT. STATES PT HASNT HAD BM SINCE BEFORE 08/01. CHELSEY STATED HE WILL ORDER MIRALAX & SUPPOSITORY TO BE GIVEN. ALSO INFORMED CHELSEY OF HGB NOT BEING RECHECKED AFTER 1 UNIT BLOOD RECIEVED & HE STATED HE WILL ORDER AM CBC.
[2024-08-04] MEDS ORDERED: Bisacodyl 10 MG Supp PR ONE (20:00)
--- NOTE | 2024-08-04 22:25 | NUR ---
DOCTOR COMMUINCATION CALL PLACED TO HOSPITALIST Osmin MURPHY CBG BEING 399. NO ORDER RECIEVED FOR MEDICATION DOSING.
[2024-08-05 04:40] VITALS: BP 147/67
--- NOTE | 2024-08-05 05:41 | NUR ---
SHIFT SUMMARY AOX1-SELF SOMETIMES & /DAUGHTER. PERIODS OF LUCID THINKING & CONVERSATION, OTHER TIMES CAN RESPOND NONSENSICALLY & FORGET OWN BIRTHDATE. POD 3-R HIP NAILING. RAQUEL W/CLEAR TEGADERM, INTACT, NO DRAINAGE. ABLE TO WIGGLE RLE, STRONG PULSE, CAP REFIL <3 SEC, DEPENDENT EDEMA TO R HIP NOTED. PT GETS IRRITABLE @TIMES DURING CARE AND VERBALLY SAYS "OW" OR "LEAVE ME ALONE." MEDICATED W/25MCG IV FENTANYL 2x & WHEN PAIN REASSESSED PT STATES "SORRY, I WAS HURTING." PT UNABLE TO SPECIFY WHERE SHE IS HURTING & SAYS "ALLOVER". FAMILY CONCERNED NO BM SINCE PRIOR TO ADMIT, GAVE BOWEL CARE & PT HAD XL SOFT BROWN BM THIS AM. WARREN PATENT & DRAINING LIGHT YELLOW URINE TO GRAVITY. PT HASNT BEEN OOB SINCE SURGERY. CALL LIGHT & BED ALARM IN PLACE.
[2024-08-05 06:14] LABS: Hematocrit 25.8 % (33.0-51.0); Mean Corpuscular HGB 30.4 pg (26.0-34.0); Mean Corpuscular HGB Conc 34.9 g/dL (31.5-36.5); Mean Corpuscular Volume 87 fL (80-100); Platelet Count 109 K/mm3 (150-400); RDW Coefficient Variation 14.2 % (11.7-14.2); RDW Standard Deviation 44.8 fL (35.1-46.3); Red Blood Cell Count 2.96 M/mm3 (3.80-5.20); White Blood Cell Count 13.49 K/mm3 (4.00-11.30)
[2024-08-05 06:47] LABS: Bun/Creatinine Ratio 24.2 (12.0-20.0); Calcium, Blood 8.9 mg/dL (8.5-10.1); Creatinine, Blood 0.95 mg/dL (0.40-1.00); Potassium, Blood 4.1 mmol/L (3.5-5.5)
[2024-08-05 07:23] VITALS: BP 153/61
[2024-08-05] MEDS ORDERED: Polyethylene Glycol 3350 17 gm PO SCH (09:00)
[2024-08-05 14:58] VITALS: BP 103/62
--- NOTE | 2024-08-05 18:36 | NUR ---
SHIFT SUMMARY POD3, A/O TO SELF ONLY, VERBAL STATEMENTS ARE NONSENSICAL AND HAVE NOTHING TO DO WITH WHAT IS BEING TALKED ABOUT, SHE HAS HAD POOR PO INTAKE TODAY AND HAS NOT BEEN EATING HER MEALS. WARREN STILL IN PLACE. NO ACUTE EVENTS, CALL LIGHT IN REACH.
[2024-08-05 19:29] VITALS: BP 116/68
[2024-08-06 04:01] VITALS: BP 96/81
[2024-08-06 04:44] VITALS: BP 131/76
[2024-08-06 07:50] VITALS: BP 115/59
[2024-08-06] MEDS ORDERED: CENTRUM SILVER1 EAC2 PO (14:43)
[2024-08-06 14:48] VITALS: BP 137/85
[2024-08-06] MEDS ORDERED: INSULANI SC (15:39)
--- NOTE | 2024-08-06 17:10 | NUR ---
PHYSICIAN COMMUNICATION PRIMARY RN JOHN Livingston ASKED THIS RN TO ASK DR KITCHEN IF HE WOULD LIKE DVT PROPHALAXIS FOR PT PER DR. OLIVAS ORDER. DR KITCHEN STATED ALL ORTHO PTS SHOULD HAVE SCDS, MATT HOSE & POTENTIAL LOVENOX UNLESS NOTICABLE SEEPING OR DRAINAGE FROM SURGERY SITE OR POTENTIAL BLEEDING. NEW LOVENOX ORDER PLACED. INFORMED PRIMARY RN.
[2024-08-06] MEDS ORDERED: LOSA50 PO (17:23)
[2024-08-06] MEDS ORDERED: CODACE30 PO (17:32)
[2024-08-06] MEDS ORDERED: Ativan1 MG PO (18:24)
--- NOTE | 2024-08-06 18:49 | NUR ---
SHIFT SUMMARY POD 4 R HIP PINNING. NO ACUTE CHANGES TODAY. VSS, CONT BIOX IN USE. BASELINE A&O x1, COOPERATIVE c CARE. TOLERATING ORALS, SWALLOWS MEDS IN JELLO c HEAD UPRIGHT. INCONT, VOIDING IN ATTENDS. BM x2 TODAY, SOFT/FORMED. NO AMB TODAY. INCISION SITE x4 c RAQUEL/TEGADERM C/D/I, SCANT SANG DRAINAGE ON LOWER SITE. PT MEDICATED PER EMAR FOR PAIN, FACE SCALE USED FOR ASSESSMENT, VISUALIZED COMFORTABLE. FAMILY AT BEDSIDE T/O DAY. CALL LIGHT IN REACH, BED IN LOWEST POSITION, REPORT GIVEN TO NOC RN.
[2024-08-06 19:19] VITALS: BP 137/56
[2024-08-07 04:02] VITALS: BP 139/57
[2024-08-07 05:26] LABS: Hematocrit 26.4 % (33.0-51.0); Mean Corpuscular HGB 30.5 pg (26.0-34.0); Mean Corpuscular HGB Conc 34.1 g/dL (31.5-36.5); Mean Corpuscular Volume 90 fL (80-100); Mean Platelet Volume 10.8 fL (9.1-12.4); Platelet Count 160 K/mm3 (150-400); RDW Coefficient Variation 14.1 % (11.7-14.2); RDW Standard Deviation 43.7 fL (35.1-46.3); Red Blood Cell Count 2.95 M/mm3 (3.80-5.20); White Blood Cell Count 8.86 K/mm3 (4.00-11.30)
[2024-08-07 05:47] LABS: Bun/Creatinine Ratio 26.2 (12.0-20.0); Calcium, Blood 9.1 mg/dL (8.5-10.1); Creatinine, Blood 0.99 mg/dL (0.40-1.00)
[2024-08-07 07:05] VITALS: BP 146/87
--- NOTE | 2024-08-07 07:17 | NUR ---
SHIFT SUMMARY POD #5 S/P RIGHT HIP PINNING. A/OX1 AT BASELINE WITH VSS. CONT BIOX IN PLACE, SPO2 ABOVE 93% ON RA. PAIN MANAGED WITH REPOSITIONING, ICE THERAPY AND PER EMAR. INCISIONS X 4 TO RIGHT HIP REPLACED PATIENT PULLED PREVIOUS DRESSINGS OFF. INCONT OF VOIDS, ATTENDS CHANGED PRN. TOLERATING PO INTAKE, PT ENCOURAGED FLUIDS T/O SHIFT. PT CURRENTLY RESTING IN BED, TAB ALARM ON AND CALL LIGHT IN REACH. REPORT GIVEN TO DAY RN.
[2024-08-07 07:19] VITALS: BP 128/57
[2024-08-07] MEDS ORDERED: Enoxaparin 40 MG/0.4 ML SYR SC SCH (09:00)
[2024-08-07] MEDS ORDERED: Clopidogrel Bisulfate 75 MG Tab PO SCH (13:00)
[2024-08-07 14:52] VITALS: BP 123/52
[2024-08-07 17:33] VITALS: BP 116/57
--- NOTE | 2024-08-07 17:33 | NUR ---
BRADYCARDIA PT'S HR NOTED TO BE DROPPING TO 47 BUT RANGING FROM 47-55. PT IS ASYMPTOMATIC. TP IS DROWSY BUT WAKES WHEN SPOKEN TO. VSS. MESSAGE LEFT FOR DR. FUENTES AT 1733 REGARDING CONCERNS. WAITING FOR RETURN CALL.
--- NOTE | 2024-08-07 19:21 | NUR ---
SHIFT SUMMARY PT IS POD#5 FROM R HIP REPAIR WITH DR. HILL. PAIN MANAGED WITH PO PAIN MEDICATION. PT WORKED WITH THERAPY TODAY AND STOOD AT THE EDGE OF THE BED. SHE ALSO WORKED WITH OCCUPATIONAL THERAPY. PT ASSISTED WITH REPOSITIONING. PROTECTIVE DRESSING PLACED ON COCCYX. PUREWICK IN PLACE TO HELP PROTECT SKIN SINCE PT IS INCONTINENT. REPORT GIVEN TO DERIK MEDINA.
--- NOTE | 2024-08-07 19:24 | NUR ---
SPOKE WITH CHELSEY FOOD SAFETY DIRECTOR REGARDING LOW HR. EKG ORDERED. EKG SHOWED NSR WITH BUNDLE BRANCH BLOCK AND PVCs. OTHER VSS.
[2024-08-07 19:35] VITALS: BP 122/77
--- NOTE | 2024-08-08 04:16 | NUR ---
SHIFT SUMMARY NO ACUTE CHANGES THROUGHOUT SHIFT. TEGADERM TO RIGHT HIP INCISION SITES REPLACED DUE PT REMOVING DRESSINGS. PT TOLERATING PO INTAKE, ABLE TO TAKE PILLS IN JELLO. IV ABX INFUSED PER ORDERS, PICC SL AND PATENT. Q2 TURNS, PT TOLERATED FAIR. SPO2 ABOVE 93% ON RA. PT RESTING IN BED WITH CALL LIGHT IN REACH. WILL CONTINUE TO CARE FOR PATIENT AND GIVE REPORT TO ONCOMING RN.
[2024-08-08 04:48] VITALS: BP 135/101
[2024-08-08 07:08] VITALS: BP 141/79
[2024-08-08] MEDS ORDERED: CefTRIAXone Sodium 1,000 MG in NS 100 ML IV ONE (14:25)
[2024-08-08 15:00] VITALS: BP 136/70
--- NOTE | 2024-08-08 15:15 | NUR ---
Spiritual Care Visit. This waxing machine operator got word from the home care companion that the Pt. would discharge this afternoon, so I chose to visit her without family present. Consdered the pts. upccoming transfer to rehab and normalize the Pt. experience. Though Pt. displays evidence of dementia, the Pt. recognizes this waxing machine operator from previous visits. Facilitate an update, and pray with the Pt. Pt. displays evidence of understanding and verbalized gratitude for the spiritual care visit.
--- NOTE | 2024-08-08 16:40 | NUR ---
DISCHARGE NOTE REPORT GIVEN TO MELISSA MEDINA AT [facility]. PT IS ORIENTED TO HERSELF AND FOLLOWS COMMANDS BUT HAS BEEN VERY DROWSY THIS SHIFT, DR TOBIAS NOTIFIED AND NO ORDERS RECIEVED, PROCEEDING W/ DISCHARGE TO [facility]. PERSONAL BELONGINGS PACKED UP AND GIVEN TO SPOUSE SHANIQUE TO TRANSFER TO FACILITY INCLUDING GLASSES. DC PAPERWORK GIVEN TO TRANSPORT PERSONNEL, PAIN SCRIPTS W/ PAPERWORK, RECIEVING RN NOTIFIED. DC'D POWERGLIDE, VSS, PAIN TOLERABLE AT BASELINE AFTER GIVING TYLENOL PER EMAR. DRESSING ON R HIP C/D/I, PEDAL PULSE STRONG IN R FOOT. 2 MAX ASST TO PIVOT TRANSFER TO WHEELCHAIR, DC'D VIA [facility].
== END 2024-08-08 16:40 | disposition home or self-care (01) | DRG 480 ==
LOC: ER 18:55 → SURS 18:56 → MEDS 18:56 → SURS 08-02 17:24 → ICUE 08-02 17:24 → MEDS 08-02 18:00 → ICUE 08-02 19:57 → SURS 08-03 18:00
PROVIDERS: Emergency Medicine; Family Medicine; Internal Medicine; Nurse Practitioner Acute Care; Orthopaedic Surgery Sports Medicine; ADMIT Student in an Organized Health Care Education/Training Program
PROC: 3E03329 Introduction of Other Anti-infective into Peripheral Vein, Percutaneous Approach (ICD-10-PCS; 2024-08-01)
PROC: 0QH634Z Insertion of Internal Fixation Device into Right Upper Femur, Percutaneous Approach (ICD-10-PCS; principal; 2024-08-02 11:30)
PROC: 30233N1 Transfusion of Nonautologous Red Blood Cells into Peripheral Vein, Percutaneous Approach (ICD-10-PCS; 2024-08-04)
DX: S72.141A Displaced intertrochanteric fracture of right femur, initial encounter for closed fracture (principal); A41.9 Sepsis, unspecified organism; R65.20 Severe sepsis without septic shock; D62 Acute posthemorrhagic anemia; I50.22 Chronic systolic (congestive) heart failure; I13.0 Hypertensive heart and chronic kidney disease with heart failure and stage 1 through stage 4 chronic kidney disease, or unspecified chronic kidney disease; N39.0 Urinary tract infection, site not specified; N17.9 Acute kidney failure, unspecified; F01.53 Vascular dementia, unspecified severity, with mood disturbance; Z66 Do not resuscitate; W18.30XA Fall on same level, unspecified, initial encounter; I25.10 Atherosclerotic heart disease of native coronary artery without angina pectoris; G89.29 Other chronic pain; B96.89 Other specified bacterial agents as the cause of diseases classified elsewhere; N18.30 Chronic kidney disease, stage 3 unspecified; M54.50 Low back pain, unspecified; M47.816 Spondylosis without myelopathy or radiculopathy, lumbar region; E11.22 Type 2 diabetes mellitus with diabetic chronic kidney disease; I77.819 Aortic ectasia, unspecified site; G40.909 Epilepsy, unspecified, not intractable, without status epilepticus; Z98.890 Other specified postprocedural states; Z86.73 Personal history of transient ischemic attack (TIA), and cerebral infarction without residual deficits; I25.2 Old myocardial infarction; Z79.01 Long term (current) use of anticoagulants; Z88.0 Allergy status to penicillin; Z88.1 Allergy status to other antibiotic agents; Z88.8 Allergy status to other drugs, medicaments and biological substances; Z79.02 Long term (current) use of antithrombotics/antiplatelets; Z79.4 Long term (current) use of insulin; Z79.899 Other long term (current) drug therapy; Z87.891 Personal history of nicotine dependence
CPT/HCPCS: 36415; 36416; 36430; 51702; 70450; 71045; 71275; 72070; 72100; 72125; 73502; 73552; 80048; 80053; 81001; 82728; 82803; 82947; 83036; 83540; 83550; 83605; 83735; 85014; 85018; 85025; 85027; 85610; 85730; 86850; 86900; 86901; 86923; 87040; 87086; 93005; 93010; 94762; 96365; 96374; 96375; 96376; 97162; 97166; 97530; 97535; 99285-25; A9270; C1713; C1751; G0378; J0690; J0696; J1650; J1815; J2371; J2405; J2704; J2765; J3010; J7030; J7050; J7120; P9016; Q9967

== ENCOUNTER → 2024-08-01 | Outpatient (CLI) | payer MEDICARE, OTHER ==
[~2024-08-01] MED LIST changes: +Ativan1 MG PO; +CEFD300 PO; +CENTRUM SILVER1 EAC2 PO; +Divalproex Sod125 M1 PO; +ELIQUIS5 M2 PO; +ESCI5 PO; +INSULANI SC; +LOSARTAN POTAS100 M1 PO; +TOPI25 PO
== END ==
LOC: LAB SHORT 19:10 → LAB 19:10
DX: N39.0 Urinary tract infection, site not specified (principal)
CPT/HCPCS: 87077; 87086; 87186